=== PATIENT | female | born 1950 | race Caucasian/White ===

== ENCOUNTER → 2017-09-01 12:51 | Outpatient (CLI) | payer MEDICARE, OTHER, SELFPAY ==
[2017-09-01 13:16] LABS: Absolute Lymphocyte Count 0.95 X10^3/ul (0.83-4.51); Basophil# 0.03 X10^3/uL; Basophil% 0.7 % (0-1); Eosinophil# 0.01 X10^3/uL; Eosinophils% 0.2 % (0-5); Hematocrit 39.4 % (37-47); Hemoglobin 13.3 g/dl (12.0-15.0); Lymphocyte # 0.95 X10^3/ul (4.0); Lymphocyte % 22.6 % (19-41); Mean Corp Hgb Conc 33.8 g/gl (32-36); Mean Corpuscular Hgb 31.5 pg (27.0-32.0); Mean Corpuscular Volume 93.4 fL (81-99); Mean Platelet Vol. 11.6 fl (6.2-12.0); Monocyte# 0.25 X10^3/uL; Monocyte% 5.9 % (0-10); Neutrophil # 2.97 X10^3/uL (2.7-7.7); Neutrophil % 70.6 % (47-70); Platelet Count 141 K/mm3 (150-450); RBC Distribution Width CV 12.7 % (11.6-14.6); RBC Distribution Width SD 42.7 fl (35.1-43.9); Red Blood Count 4.22 M/mm3 (4.2-5.4); White Blood Count 4.2 K/mm3 (4.4-11.0)
[2017-09-01 13:18] LABS: POSITIVE COUNT NO; POSITIVE DIFFERENTIAL NO; POSITIVE MORPHOLOGY NO
[2017-09-01 13:47] LABS: Vitamin D,25 Hydroxy 29.9 ng/mL (29.95-100.01)
[2017-09-01 13:51] LABS: ALB/GLOB Ratio 1.2 RATIO (0.9-2.4); AST(SGOT) 35 U/L (15-37); Alanine Aminotransfer ALT/SGPT 39 U/L (13-56); Albumin, Serum 4.2 g/dL (3.2-5.0); Alkaline Phosphatase 62 U/L (45-117); Anion Gap 5 (5-15); BUN 21 mg/dL (7-18); BUN/Creat Ratio 24.9 RATIO (10-20); Chloride 105 mmol/L (98-107); Creatinine, Serum 0.84 mg/dL (0.55-1.02); EST Glomerular Filtration Rate 72 mL/min (>60); Est Glom Filt Rate - Afr Amer 87 mL/min (>60); Globulin 3.5 g/dL (2.2-4.2); Glucose 81 mg/dL (74-106); Potassium 3.9 mmol/L (3.5-5.1); Protein, Total 7.7 g/dL (6.4-8.2); Sodium Level 138 mmol/L (136-145); Thyroid Stim Hormone (TSH) 1.16 uIU/mL (0.358-3.74)
[2017-09-02 09:20] LABS: Hep C Antibodies <0.1 s/co ratio (0.0-0.9)
== END ==
PROVIDERS: Visit Provider Family Medicine Geriatric Medicine
DX: Z00.00 Encounter for general adult medical examination without abnormal findings (principal); E55.9 Vitamin D deficiency, unspecified; I10 Essential (primary) hypertension; Z13.89 Encounter for screening for other disorder
CPT/HCPCS: 36415; 80053; 82306; 84443; 85025; 86803; 86850; 86900

== ENCOUNTER → 2017-09-07 08:25 | Outpatient (CLI) | payer MEDICARE, OTHER, SELFPAY ==
--- NOTE | 2017-09-07 08:30 | BD_ITS ---
STUDY: DUAL ENERGY X-RAY ABSORPTIOMETRY / DXA REASON FOR EXAM: Female, 67 years old. The patient is postmenopausal. Loss of height. TECHNIQUE: Bone Mineral Density (BMD) measurements of lumbar spine and bilateral hips were obtained. COMPARISON: None. FINDINGS: Lumbar Spine (L1-L4): g/cm2 (1.115) / T-score (-0.5) / Z-score (1.0) Findings are suggestive of normal bone density with a low fracture risk. Left Femur Total: g/cm2 (0.852) / T-score (-1.2) / Z-score (0.0) Left Femoral Neck: g/cm2 (0.834) / T-score (-1.5) / Z-score (0.0) Right Femur Total: g/cm2 (0.853) / T-score (-1.2) / Z-score (0.0) Right Femoral Neck: g/cm2 (0.833) / T-score (-1.5) / Z-score (0.0) BD/DXA BONE DENS W/VERT FX ASMT IMPRESSION: The patient is considered osteopenic as outlined below according to World [employer] Organization (WHO) criteria with a moderate fracture risk. Reference Information: The T-score is the number of standard deviations above or below the standard which is normal for young adults at their peak bone mineral density. The World Health Organization (WHO) interprets the T-scores as follows: Above -1 Normal bone density Between -1 and -2.5 Osteopenia Equal to / or below -2.5 Osteoporosis As a practical clinical guideline, osteopenia may be graded as follows: Mild -1 through -1.5 Moderate -1.6 through -2.0 Severe -2.1 through -2.4 The Z-score is the number of standard deviations above or below age-matched controls. A Z-score of less than -1.5 would be considered abnormal. References: 1. NIH Osteoporosis and Related Bone Diseases http://www.osteo.org 2. International Society for Clinical Densitometry http://www.iscd.org 3. National Osteoporosis Foundation http://www.nof.org Electronically Signed: Noble Fish MD at 15:26 EDT Tel [phone], Service support ,
== END ==
PROVIDERS: Family Provider Family Medicine; PCP Family Medicine; Visit Provider Family Medicine Geriatric Medicine
DX: Z78.0 Asymptomatic menopausal state (principal)
CPT/HCPCS: 77085

== ENCOUNTER → 2018-11-05 | Outpatient (CLI) | payer MEDICARE, OTHER, SELFPAY | END | disposition home or self-care (01) | LOC: PSN 16:11 | PROVIDERS: Family Provider Family Medicine Geriatric Medicine; PCP Family Medicine Geriatric Medicine; Referring Provider Family Medicine Geriatric Medicine; Visit Provider Family Medicine Geriatric Medicine | DX: R50.9 Fever, unspecified (principal) | CPT/HCPCS: 87633 ==

== ENCOUNTER → 2018-11-15 08:13 | Outpatient (CLI) | payer MEDICARE, OTHER, SELFPAY ==
--- NOTE | 2018-11-15 08:15 | BI_ITS ---
MAMMOGRAPHY - BILATERAL SCREENING REASON FOR EXAM: Female, 68 years old. Routine annual screening examination. PERTINENT HISTORY: Non-contributory. TECHNIQUE: Digital bilateral breast gerson (3D mammographic acquisition) in the CC and MLO projections. 2-D mediolateral oblique (MLO) and craniocaudad (CC) views of both breasts were obtained. CAD: Full Field Digital Mammography with Computer Added Detection was performed. COMPARISON: Comparison is made with prior study December 15, 2016 and December 15, 2015. FINDINGS: Breast Composition: The breasts are heterogeneously dense, which may obscure small masses. There are no dominant masses or suspicious calcifications. No other significant abnormalities are identified. There has been no significant change since the prior study. BI/SCREEN MAMM (CAD) W/GERSON BILAT IMPRESSION: Stable bilateral screening mammogram. Yearly follow-up mammogram recommended. (A) ASSESSMENT CATEGORY: BIRADS Category 1: Negative. A letter regarding these results will be sent to the patient by the facility within 30 days. Approximately 10% of breast cancers are not detected by mammography. A normal mammogram should not delay biopsy of a clinically suspicious abnormality. [id number] Electronically Signed: Noble Fish, at 10:37 EDT , Service support ,
== END ==
PROVIDERS: Family Provider Family Medicine Geriatric Medicine; PCP Family Medicine Geriatric Medicine; Referring Provider Family Medicine Geriatric Medicine; Visit Provider Family Medicine Geriatric Medicine
DX: Z12.31 Encounter for screening mammogram for malignant neoplasm of breast (principal)
CPT/HCPCS: 77063; 77067

== ENCOUNTER → 2019-11-21 14:10 | Outpatient (CLI) | payer MEDICARE, OTHER, SELFPAY ==
[2019-11-21 15:56] LABS: Absolute Lymphocyte Count 1.31 X10^3/uL (0.83-4.51); Absolute Neutrophil Count 3.5 X10^3/uL (2.0-7.7); Basophil# 0.02 X10^3/uL; Basophil% 0.4 % (0-1); Eosinophils% 1.9 % (0-5); Hematocrit 37.6 % (37-47); Hemoglobin 12.6 g/dL (12.0-15.0); Lymphocyte # 1.31 X10^3/ul (4.0); Lymphocyte % 24.3 % (19-41); Mean Corp Hgb Conc 33.5 g/dL (32-36); Mean Corpuscular Hgb 31.5 pg (27.0-32.0); Mean Platelet Vol. 12.3 fl (6.2-12.0); Monocyte# 0.41 X10^3/uL; Monocyte% 7.6 % (0-10); NRBC Flagged by Analyzer 0 % (0-5); Neutrophil # 3.54 X10^3/uL (2.7-7.7); Neutrophil % 65.6 % (47-70); Platelet Count 168 K/mm3 (150-450); RBC Distribution Width CV 12.5 % (11.6-14.6); RBC Distribution Width SD 43.3 fl (35.1-43.9); White Blood Count 5.4 K/mm3 (4.4-11.0)
[2019-11-21 16:23] LABS: ALB/GLOB Ratio 1.2 RATIO (0.9-2.4); AST(SGOT) 21 U/L (15-37); Alanine Aminotransfer ALT/SGPT 30 U/L (13-56); Albumin, Serum 4.1 g/dL (3.2-5.0); Alkaline Phosphatase 67 U/L (45-117); Anion Gap 3 (5-15); BUN 21 mg/dL (7-18); BUN/Creat Ratio 26.4 RATIO (10-20); Calcium,Total 9.3 mg/dL (8.5-10.1); Chloride 103 mmol/L (98-107); EST Glomerular Filtration Rate 77 mL/min (>60); Est Glom Filt Rate - Afr Amer 93 mL/min (>60); Globulin 3.3 g/dL (2.2-4.2); Glucose 103 mg/dL (74-106); Potassium 3.7 mmol/L (3.5-5.1); Protein, Total 7.4 g/dL (6.4-8.2); Sodium Level 140 mmol/L (136-145); Thyroid Stim Hormone (TSH) 1.47 uIU/mL (0.358-3.74)
== END ==
PROVIDERS: PCP Family Medicine Geriatric Medicine; Visit Provider Family Medicine Geriatric Medicine
DX: I10 Essential (primary) hypertension (principal); E55.9 Vitamin D deficiency, unspecified
CPT/HCPCS: 36415; 80053; 82306; 84443; 85025

== ENCOUNTER → 2020-04-28 15:22 | Outpatient (CLI) | payer MEDICARE, OTHER, SELFPAY ==
--- NOTE | 2020-04-28 15:24 | BI_ITS ---
MAMMOGRAPHY - BILATERAL SCREENING REASON FOR EXAM: Female, 69 years old. Routine annual screening examination. PERTINENT HISTORY: Non-contributory. TECHNIQUE: Digital bilateral breast gerson (3D mammographic acquisition) in the CC and MLO projections. 2-D mediolateral oblique (MLO) and craniocaudad (CC) views of both breasts were obtained. CAD: Full Field Digital Mammography with Computer Added Detection was performed. COMPARISON: Comparison is made with prior study dated 11/15/2018 and 12/15/2016. FINDINGS: Breast Composition: The breasts are heterogeneously dense, which may obscure small masses. There are no dominant masses or suspicious calcifications. No other significant abnormalities are identified. There has been no significant change since the prior study. BI/SCRN MAMM (CAD)W/GERSON BILAT IMPRESSION: Stable bilateral screening mammogram. Yearly follow-up mammogram recommended. (A) ASSESSMENT CATEGORY: BIRADS Category 1: Negative. A letter regarding these results will be sent to the patient by the facility within 30 days. Approximately 10% of breast cancers are not detected by mammography. A normal mammogram should not delay biopsy of a clinically suspicious abnormality. [id number] Electronically Signed: Noble Fish MD at 7:59 EST , Service support ,
== END ==
PROVIDERS: PCP Family Medicine Geriatric Medicine; Referring Provider Family Medicine Geriatric Medicine; Visit Provider Family Medicine Geriatric Medicine
DX: Z12.31 Encounter for screening mammogram for malignant neoplasm of breast (principal)
CPT/HCPCS: 77063; 77067

== ENCOUNTER → 2020-12-10 13:25 | Outpatient (CLI) | payer MEDICARE, OTHER, SELFPAY ==
[2020-12-10 16:07] LABS: Absolute Lymphocyte Count 1.39 X10^3/uL (0.83-4.51); Absolute Neutrophil Count 3.4 X10^3/uL (2.0-7.7); Basophil# 0.04 X10^3/uL; Basophil% 0.8 % (0-1); Eosinophil# 0.07 X10^3/uL; Eosinophils% 1.3 % (0-5); Hematocrit 37.4 % (37-47); Hemoglobin 12.4 g/dL (12.0-15.0); Lymphocyte # 1.39 X10^3/ul (0.83-4.51); Lymphocyte % 26.1 % (19-41); Mean Corp Hgb Conc 33.2 g/dL (32-36); Mean Corpuscular Hgb 31.3 pg (27.0-32.0); Mean Corpuscular Volume 94.4 fL (81-99); Mean Platelet Vol. 12.2 fl (6.2-12.0); Monocyte# 0.43 X10^3/uL; Monocyte% 8.1 % (0-10); NRBC Flagged by Analyzer 0 % (0-5); Neutrophil # 3.37 X10^3/uL (2.7-7.7); Neutrophil % 63.3 % (47-70); Platelet Count 154 K/mm3 (150-450); RBC Distribution Width CV 12.3 % (11.6-14.6); RBC Distribution Width SD 43.2 fl (35.1-43.9); Red Blood Count 3.96 M/mm3 (4.2-5.4); White Blood Count 5.3 K/mm3 (4.4-11.0)
[2020-12-10 16:33] LABS: Vitamin D,25 Hydroxy 57.1 ng/mL
[2020-12-10 16:41] LABS: ALB/GLOB Ratio 1.1 RATIO (0.9-2.4); AST(SGOT) 24 U/L (15-37); Alanine Aminotransfer ALT/SGPT 32 U/L (13-56); Albumin, Serum 3.9 g/dL (3.2-5.0); Alkaline Phosphatase 62 U/L (45-117); Anion Gap 8 (5-15); BUN 12 mg/dL (7-18); BUN/Creat Ratio 18.8 RATIO (10-20); Calcium,Total 9.2 mg/dL (8.5-10.1); Chloride 103 mmol/L (98-107); Creatinine, Serum 0.64 mg/dL (0.55-1.02); EST Glomerular Filtration Rate 98 mL/min (>60); Est Glom Filt Rate - Afr Amer 119 mL/min (>60); Globulin 3.4 g/dL (2.2-4.2); Glucose 90 mg/dL (74-106); Potassium 3.7 mmol/L (3.5-5.1); Protein, Total 7.3 g/dL (6.4-8.2); Sodium Level 140 mmol/L (136-145); Thyroid Stim Hormone (TSH) 1.57 uIU/mL (0.358-3.74)
== END ==
PROVIDERS: PCP Family Medicine Geriatric Medicine; Visit Provider Family Medicine Geriatric Medicine
DX: I10 Essential (primary) hypertension (principal); E55.9 Vitamin D deficiency, unspecified
CPT/HCPCS: 36415; 80053; 82306; 84443; 85025

== ENCOUNTER → 2021-02-17 11:15 | Outpatient (CLI) | payer MEDICARE, OTHER, SELFPAY | PROVIDERS: PCP Family Medicine Geriatric Medicine; Visit Provider Physician Assistant | DX: Z11.52 Encounter for screening for COVID-19 (principal) | CPT/HCPCS: 87635; U0005; U0003 ==

== ENCOUNTER → 2021-02-22 | Outpatient (CLI) | payer MEDICARE, OTHER, SELFPAY | END | disposition home or self-care (01) | LOC: LABSPEC 09:41 | PROVIDERS: PCP Family Medicine Geriatric Medicine; Visit Provider Physician Assistant | DX: Z11.52 Encounter for screening for COVID-19 (principal) | CPT/HCPCS: 87635; U0005; U0003 ==

== ENCOUNTER → 2021-03-03 | Outpatient (CLI) | payer MEDICARE, OTHER, SELFPAY | END | disposition home or self-care (01) | LOC: LABSPEC 09:47 | PROVIDERS: PCP Family Medicine Geriatric Medicine; Referring Provider Physician Assistant; Visit Provider Physician Assistant | DX: Z11.52 Encounter for screening for COVID-19 (principal) | CPT/HCPCS: 87635; U0005; U0003 ==

== ENCOUNTER 2021-04-29 08:45 | Outpatient (CLI) | payer MEDICARE, OTHER, SELFPAY ==
--- NOTE | 2021-04-29 08:49 | BI_ITS ---
MAMMOGRAPHY - BILATERAL SCREENING REASON FOR EXAM: Female, 70 years old. Routine annual screening examination. PERTINENT HISTORY: Non-contributory. TECHNIQUE: Digital bilateral breast gerson (3D mammographic acquisition) in the CC and MLO projections. 2-D mediolateral oblique (MLO) and craniocaudad (CC) views of both breasts were obtained. CAD: Full Field Digital Mammography with Computer Added Detection was performed. COMPARISON: Comparison is made with prior study dated 04/28/2020 and 11/15/2018. FINDINGS: Breast Composition: The breasts are heterogeneously dense, which may obscure small masses. There are no dominant masses or suspicious calcifications. No other significant abnormalities are identified. There has been no significant change since the prior study. BI/SCRN MAMM (CAD)W/GERSON BILAT IMPRESSION: Stable bilateral screening mammogram. Yearly follow-up mammogram recommended. (A) ASSESSMENT CATEGORY: BIRADS Category 1: Negative. A letter regarding these results will be sent to the patient by the facility within 30 days. Approximately 10% of breast cancers are not detected by mammography. A normal mammogram should not delay biopsy of a clinically suspicious abnormality. [id number] Electronically Signed: Noble Fish MD at 9:55 EST ,
== END 2021-04-29 23:59 | disposition home or self-care (01) ==
LOC: OPBI 08:47
PROVIDERS: PCP Family Medicine Geriatric Medicine; Referring Provider Family Medicine Geriatric Medicine; Visit Provider Family Medicine Geriatric Medicine
DX: Z12.31 Encounter for screening mammogram for malignant neoplasm of breast (principal)
CPT/HCPCS: 77063; 77067

== ENCOUNTER 2021-06-21 09:32 | Outpatient (CLI) | payer MEDICARE, OTHER, SELFPAY ==
[2021-06-21 12:47] LABS: Anion Gap 5 (5-15); BUN 19 mg/dL (7-18); BUN/Creat Ratio 27.7 RATIO (10-20); Calcium,Total 10.1 mg/dL (8.5-10.1); Chloride 102 mmol/L (98-107); Creatinine, Serum 0.69 mg/dL (0.55-1.02); EST Glomerular Filtration Rate 90 mL/min (>60); Est Glom Filt Rate - Afr Amer 109 mL/min (>60); Glucose 105 mg/dL (74-106); Potassium 4.1 mmol/L (3.5-5.1); Sodium Level 137 mmol/L (136-145)
== END 2021-06-21 23:59 | disposition home or self-care (01) ==
LOC: POLAB3 09:34
PROVIDERS: PCP Family Medicine Geriatric Medicine; Visit Provider Family Medicine Geriatric Medicine
DX: I10 Essential (primary) hypertension (principal)
CPT/HCPCS: 36415; 80048

== ENCOUNTER → 2021-10-05 | Outpatient (CLI) | payer MEDICARE, OTHER, SELFPAY ==
--- NOTE | 2021-10-05 09:38 | STE_ITS ---
Reason For Study: Arrhythmia Stress Results Protocol: Justin Protocol Maximum Predicted HR: 151 bpm Target HR: 128 bpm % Maximum Predicted HR: 97 % DurationHeart Rate Stage (mm:ss) (bpm) BP Comment Baseline 75 150/98No Chest Pain Justin Protocol Stage I 3:00 102 172/94No Chest Pain Justin Protocol Stage II 3:00 112 190/92No Chest Pain Justin Protocol Stage III 3:00 125 194/94No Chest Pain Justin Protocol Stage IV 3:00 146 204/90No Chest Pain Recovery 97 146/88No Chest Pain Stress Duration: 12:00 mm:ss Maximum Stress HR: 146 bpm METS: 13 Baseline Echocardiogram Findings Stress Echo Wall motion Data Resting WM Intermediate WM Stress WM ECHO/Stress Test Echo w/o Contrast Interpretation Summary Exercise stress echocardiogram. 71-year-old lady with a history of chest pain. Stress EKG. The resting EKG demonstrates normal sinus rhythm with a rate of 74 bpm normal i ntervals are noted resting blood pressure is 150/98 mmHg. The patient exercised according to the r egular Justin protocol for total duration of 12 minutes. The maximum heart rate attained was 148 bpm w hich is 98% of max impacted heart rate the maximum workload was 13.4 metabolic equivalents. At res t there were no ST or T wave changes noted suggest ischemia and at peak exercise upsloping ST changes were noted with did not meet the criteria for ischemia. The peak blood pressure was 204/90 mmHg whi ch was mildly hypertensive response to exercise. The test was terminated due to the target he art rate being achieved. No chest pain was noted. Stress echocardiogram. The resting echocardiographic images demonstrated preserved ejection fraction. At peak exercise there was thickening of all vega and improvement in left ventricular ejection fraction from 55 to 65%. Mild resting mitral regurgitation is present. Conclusion: Normal exercise stress echo with no evidence of ischemia. Good functional capacity. Ordering Physician: Grey Mendieta Referring Physician: Grey Mendieta Performed By: Lex Moss RCS
== END | disposition home or self-care (01) ==
LOC: CVS 09:36
PROVIDERS: PCP Family Medicine Geriatric Medicine; Visit Provider Internal Medicine Cardiovascular Disease
DX: I10 Essential (primary) hypertension (principal); R07.9 Chest pain, unspecified
CPT/HCPCS: 93017; 93350

== ENCOUNTER → 2022-05-20 | Outpatient (CLI) | payer MEDICARE, OTHER, SELFPAY ==
[2022-05-20 12:24] LABS: Absolute Lymphocyte Count 1.13 X10^3/uL (0.83-4.51); Absolute Neutrophil Count 4.2 X10^3/uL (2.0-7.7); Basophil# 0.03 X10^3/uL; Basophil% 0.5 % (0-1); Eosinophil# 0.14 X10^3/uL; Eosinophils% 2.3 % (0-5); Hematocrit 38.6 % (37-47); Hemoglobin 12.7 g/dL (12.0-15.0); Lymphocyte # 1.13 X10^3/ul (0.83-4.51); Lymphocyte % 18.9 % (19-41); Mean Corp Hgb Conc 32.9 g/dL (32-36); Mean Corpuscular Hgb 31.1 pg (27.0-32.0); Mean Corpuscular Volume 94.4 fL (81-99); Mean Platelet Vol. 12.2 fl (6.2-12.0); Monocyte% 8.4 % (0-10); NRBC Flagged by Analyzer 0 % (0-5); Neutrophil # 4.15 X10^3/uL (2.7-7.7); Neutrophil % 69.6 % (47-70); Platelet Count 154 K/mm3 (150-450); RBC Distribution Width CV 12.9 % (11.6-14.6); RBC Distribution Width SD 44.7 fl (35.1-43.9); Red Blood Count 4.09 M/mm3 (4.2-5.4)
[2022-05-20 12:55] LABS: Vitamin D,25 Hydroxy 43.2 ng/mL
[2022-05-20 13:00] LABS: ALB/GLOB Ratio 1.2 RATIO (0.9-2.4); AST(SGOT) 23 U/L (15-37); Alanine Aminotransfer ALT/SGPT 27 U/L (13-56); Albumin, Serum 4.2 g/dL (3.2-5.0); Alkaline Phosphatase 63 U/L (45-117); Anion Gap 6 (5-15); BUN 14 mg/dL (7-18); Calcium,Total 9.8 mg/dL (8.5-10.1); Chloride 103 mmol/L (98-107); Cholesterol 200 mg/dL (200); Creatinine, Serum 0.61 mg/dL (0.55-1.02); EST Glomerular Filtration Rate 103 mL/min (>60); Est Glom Filt Rate - Afr Amer 125 mL/min (>60); Globulin 3.4 g/dL (2.2-4.2); Glucose 101 mg/dL (74-106); High Density Lipoprotein 77 mg/dL; Protein, Total 7.6 g/dL (6.4-8.2); Sodium Level 140 mmol/L (136-145); Triglycerides 58 mg/dL; Very Low Density Lipoprotein 12 mg/dL (5-40)
== END | disposition home or self-care (01) ==
LOC: BIMLAB 10:05
PROVIDERS: PCP Internal Medicine; Referring Provider Internal Medicine; Visit Provider Internal Medicine
DX: I10 Essential (primary) hypertension (principal); M85.80 Other specified disorders of bone density and structure, unspecified site
CPT/HCPCS: 36415; 80053; 80061; 82306; 85025

== ENCOUNTER → 2022-05-31 | Outpatient (CLI) | payer MEDICARE, OTHER, SELFPAY ==
--- NOTE | 2022-05-31 14:14 | BI_ITS ---
MAMMOGRAPHY - BILATERAL SCREENING REASON FOR EXAM: Female, 72 years old. Routine annual screening examination. PERTINENT HISTORY: Non-contributory. TECHNIQUE: Digital bilateral breast gerson (3D mammographic acquisition) in the CC and MLO projections. 2-D mediolateral oblique (MLO) and craniocaudad (CC) views of both breasts were obtained. CAD: Full Field Digital Mammography with Computer Added Detection was performed. COMPARISON: Comparison is made with prior study dated December 27, 2021 and January 26, 2021. FINDINGS: Breast Composition: The breasts are heterogeneously dense, which may obscure small masses. There are no dominant masses or suspicious calcifications. Stable benign-appearing bilateral axillary lymph nodes. No other significant abnormalities are identified. There has been no significant change since the prior study. BI/SCRN MAMM (CAD)W/GERSON BILAT IMPRESSION: Stable bilateral screening mammogram. Yearly follow-up mammogram recommended. (A) ASSESSMENT CATEGORY: BIRADS Category 2: Benign. A letter regarding these results will be sent to the patient by the facility within 30 days. Approximately 10% of breast cancers are not detected by mammography. A normal mammogram should not delay biopsy of a clinically suspicious abnormality. [id number] Electronically Signed: Noble Fish MD at 15:32 EDT ,
--- NOTE | 2022-05-31 14:32 | BD_ITS ---
STUDY: DUAL ENERGY X-RAY ABSORPTIOMETRY / DXA REASON FOR EXAM: Female, 72 years old. Post menopausal TECHNIQUE: Bone Mineral Density (BMD) measurements of lumbar spine and bilateral hips were obtained. COMPARISON: Comparison is made with prior study dated September 07, 2017. FINDINGS: Lumbar Spine (L1-L4): g/cm2 (0.993) / T-score (-0.5) / Z-score (1.6) Findings are suggestive of normal bone density with a low fracture risk. Left Femur Total: g/cm2 (0.786) / T-score (-1.3) / Z-score (0.2) Left Femoral Neck: g/cm2 (0.671) / T-score (-1.6) / Z-score (0.2) Right Femur Total: g/cm2 (0.792) / T-score (-1.2) / Z-score (0.3) Right Femoral Neck: g/cm2 (0.677) / T-score (-1.6) / Z-score (0.2) The T-Scores on the most recent prior examination were: Lumbar Spine (L1-L4): There has been improvement of bone density since the previous examination. Left Femur Total: which represents a worsening of 0.6%. Right Femur Total: which represents an improvement of 0.1%. BD/Dexa Bone Density Study IMPRESSION: The patient is considered osteopenic as outlined below according to World [employer] Organization (WHO) criteria with a moderate fracture risk. There has been improvement of bone density since the previous examination. Reference Information: The T-score is the number of standard deviations above or below the standard which is normal for young adults at their peak bone mineral density. The World Health Organization (WHO) interprets the T-scores as follows: Above -1 Normal bone density Between -1 and -2.5 Osteopenia Equal to / or below -2.5 Osteoporosis As a practical clinical guideline, osteopenia may be graded as follows: Mild -1 through -1.5 Moderate -1.6 through -2.0 Severe -2.1 through -2.4 The Z-score is the number of standard deviations above or below age-matched controls. A Z-score of less than -1.5 would be considered abnormal. References: 1. NIH Osteoporosis and Related Bone Diseases www osteo.org 2. International Society for Clinical Densitometry www iscd.org 3. National Osteoporosis Foundation www nof.org Electronically Signed: Noble Fish MD at 13:03 EDT ,
== END | disposition home or self-care (01) ==
LOC: OPBI 14:12
PROVIDERS: PCP Internal Medicine; Referring Provider Internal Medicine; Visit Provider Internal Medicine
DX: Z78.0 Asymptomatic menopausal state (principal); Z12.31 Encounter for screening mammogram for malignant neoplasm of breast
CPT/HCPCS: 77063; 77067; 77080

== ENCOUNTER → 2022-11-21 | Outpatient (CLI) | payer MEDICARE, OTHER, SELFPAY ==
[2022-11-21 13:14] LABS: Anion Gap 7 (5-15); BUN 16 mg/dL (7-18); BUN/Creat Ratio 21.8 RATIO (10-20); Calcium,Total 10.1 mg/dL (8.5-10.1); Chloride 101 mmol/L (98-107); Creatinine, Serum 0.73 mg/dL (0.55-1.02); EST Glomerular Filtration Rate 83 mL/min (>60); Est Glom Filt Rate - Afr Amer 101 mL/min (>60); Glucose 107 mg/dL (74-106); Potassium 4.2 mmol/L (3.5-5.1); Sodium Level 139 mmol/L (136-145)
== END | disposition home or self-care (01) ==
LOC: BIMLAB 09:56
PROVIDERS: PCP Internal Medicine; Referring Provider Internal Medicine; Visit Provider Internal Medicine
DX: I10 Essential (primary) hypertension (principal)
CPT/HCPCS: 36415; 80048

== ENCOUNTER → 2023-02-17 | Outpatient (CLI) | payer MEDICARE, OTHER, SELFPAY ==
[2023-02-21 10:09] LABS: HPV APTIMA, High Risk Negative (Negative)
== END | disposition home or self-care (01) ==
LOC: LAB 09:42 → LABSPEC 09:46
PROVIDERS: Referring Provider Obstetrics & Gynecology; Visit Provider Obstetrics & Gynecology
DX: Z12.4 Encounter for screening for malignant neoplasm of cervix (principal)
CPT/HCPCS: 87624; 88175; G0145

== ENCOUNTER → 2023-02-24 | Outpatient (CLI) | payer MEDICARE, OTHER, SELFPAY ==
[2023-02-24 16:54] LABS: Anion Gap 2 (5-15); BUN 21 mg/dL (7-18); BUN/Creat Ratio 24.4 RATIO (10-20); Calcium,Total 9.6 mg/dL (8.5-10.1); Chloride 101 mmol/L (98-107); Creatinine, Serum 0.86 mg/dL (0.55-1.02); EST Glomerular Filtration Rate 69 mL/min (>60); Est Glom Filt Rate - Afr Amer 84 mL/min (>60); Glucose 86 mg/dL (74-106); Potassium 3.9 mmol/L (3.5-5.1); Sodium Level 139 mmol/L (136-145)
== END | disposition home or self-care (01) ==
LOC: BIMLAB 15:08
PROVIDERS: PCP Internal Medicine; Referring Provider Internal Medicine; Visit Provider Internal Medicine
DX: I10 Essential (primary) hypertension (principal)
CPT/HCPCS: 36415; 80048

== ENCOUNTER 2023-05-28 15:16 | Emergency (ER) | payer MEDICARE, OTHER, SELFPAY ==
[2023-05-28 15:18] VITALS: BP 173/78; PULSE 72; RESP 16; TEMP 36.8; O2SAT 100; BMI 24.0
--- NOTE | 2023-05-28 15:45 | RAD_ITS ---
EXAM: XR RIGHT FINGERS, 2 OR MORE VIEWS CLINICAL INDICATION: infection TECHNIQUE: Frontal, lateral and oblique views of the fingers of the right hand. COMPARISON: No relevant prior studies available. FINDINGS: BONES/JOINTS: Unremarkable. No acute fracture. No subluxation. Normal alignment. Preservation of the joint space. No sclerotic or destructive changes observed. SOFT TISSUES: Unremarkable. No soft tissue swelling or gas. No radiopaque foreign body. RAD/Finger(s) Min 2 Views IMPRESSION: Negative x-rays of the visualized right fingers. Electronically Signed: Dionisio Mora MD at 16:12 EDT ,
--- NOTE | 2023-05-28 15:57 | EX.ED.UPPERE ---
HPI History of Present Illness Chief Complaint: Upper Extremity Injury Informant: patient and spouse/S.O. Narrative Narrative: 73-year-old female states about 10 to 11 days ago she sustained a laceration to the volar aspect of the right index finger at the level of the PIP joint. She states it did not seem very deep and only required Band-Aid for about a day. Seen feeling healing up fine until today when she woke and she felt that it was swollen and tender and had pain when she fully tried to flex the finger. She has not had any problems going into extension. Now she notes some erythema and some whitish skin where the cut was at. She notes her shots are up-to-date. No immunosuppression. She is left-handed. Tetanus Immunization: <5 years PFSH [facility] Medical History Anxiety Glaucoma History of asthma Hx of essential hypertension Hx of glaucoma Hx of migraines Hx of seasonal allergies Insomnia Osteopenia Ptosis of both eyelids Wears glasses Home Medications ascorbic acid (vitamin C) 500 mg capsule mg PO 07/23/21 [History Last Taken Unknown] calcium citrate 250 mg PO BID 07/23/21 [History Last Taken Unknown] mecobalamin (vitamin B12) 5,000 mcg disintegrating tablet mcg PO 07/23/21 [History Last Taken Unknown] multivitamin (Multiple Vitamins tablet) 1 tab PO DAILY 07/23/21 [History Last Taken Unknown] Bacillus coagulans 800 million cell tablet (Digestive Advantage Probiotics-Prebiotic) cell PO 04/06/22 [History Last Taken Unknown] timolol 0.25 % eye drops 1 drp ophthalmic (eye) DAILY 05/20/22 [History Last Taken Unknown] diphenhydramine HCl 25 mg capsule (Allergy (diphenhydramine)) 25 mg PO QHS 11/21/22 [History Last Taken Unknown] valsartan 320 mg-hydrochlorothiazide 25 mg tablet 1 tab PO DAILY #90 tabs 01/17/23 [Rx Last Taken Unknown] propranolol 80 mg capsule,24 hr,extended release 80 mg PO QHS #90 caps 03/02/23 [Rx Last Taken Unknown] cephalexin 500 mg capsule 500 mg PO Q6 #28 CAPSULES 05/28/23 [Rx Last Taken Unknown] Allergy/AdvReac Type Severity Reaction Status Date / Time No Known Allergies Allergy Verified 05/28/23 15:17 Family History Father CAD (coronary artery disease) CABG Myocardial infarction Mother Pancreatic cancer Surgical History No significant past surgical history Social History Smoking Status: Never smoker alcohol intake: current alcohol intake frequency: holidays/special occasions only substance use type: does not use caffeine: Yes what type of physical activity do you participate in: walking and weight training frequency: 3-4 times per week seatbelt use: always do you feel safe at home: Yes additional social history: -Ty ROS ROS ED Constitutional Constitutional ED: Denies chills, fever(s) or weight loss Eyes Eyes: Denies change in vision or diplopia ENT ENT ED: Denies ear pain, rhinorrhea or sore throat Cardiovascular Cardiovascular: Denies chest pain, orthopnea, palpitations or racing heartbeat Respiratory/Chest Respiratory/Chest: Denies cough, dyspnea or orthopnea Gastrointestinal Gastrointestinal: Denies abdominal pain, diarrhea, nausea or vomiting Genitourinary Genitourinary ED: Denies dysuria, hematuria or urinary frequency Musculoskeletal Musculoskeletal: Reports other Details: See history of present illness ; Denies arthralgias or myalgias Integumentary Reports other Details: See history of present illness ; Denies abscess or rash Neurologic Neurologic: Denies headache(s) or weakness Psychiatric Psychiatric: Denies anxiety, depression, suicidal ideation or suicidal thoughts Endocrine Endocrinology: Denies polydipsia, polyphagia or polyuria Allergic/Immunologic Allergic/Immunologic ED: Denies mouth swelling, tongue swelling or urticaria EXAM Physical Exam Const Vital Signs: 05/28/23 15:18 Temperature 98.3 F Temperature Source Temporal Pulse Rate 72 Respiratory Rate 16 Blood Pressure 173/78 H Blood Pressure Mean 109 Pulse Ox 100 Oxygen Delivery Method Room Air Positive well nourished and well developed General Appearance ED: well developed HEENT Reports normocephalic, head/scalp atraumatic and moist mucous membranes Eyes PERRL and EOMs intact bilaterally Neck no lymphadenopathy, supple and no JVD Resp normal respiratory effort and clear to auscultation bilaterally Cardio regular rate, regular rhythm and no murmurs GI normal to inspection, nondistended, normoactive bowel sounds and non-tender Palpation: soft Back/Spine no CVA tenderness and normal ROM Extremity Extremity Narrative: There is some focal swelling and erythema on the volar aspect of the right index finger. It does not extend past the MCP joint. It is not circumferential. She is able to go into full extension on her own. There is some pain when she goes into full flexion possibly due to the swelling. Right in the joint line crease there is some whitish skin consistent with a healing wound. I do not palpate any infection crepitance or fluctuance. General Extremety ED: Negative for edema General Extremity: Negative for edema Neuro oriented x3 and CN's II-XII intact bilaterally Sensorium / Orientation: alert Motor Exam: strength 5/5 throughout Psych mental status grossly normal Mood & Affect: Negative for depressed or tearful Skin no rashes or lesions noted and no wounds MDM MDM MDM Narrative Medical decision making narrative: My independent or potation of the plain films of the right index finger is no acute fracture. No subcutaneous air or obvious form radiopaque body. Patient will be started on Keflex. Would recommend some warm compresses. Return if worsening or follow-up if not improving. History & Record Review Discussion w/independent historian: Patient and Significant other Discharge Plan Triage Chief Complaint: Upper Extremity Injury ED Provider: Brando Myers Dx/Rx/DC Orders Clinical Impression: Cellulitis of finger of right hand Instructions: ED Cellulitis Prescriptions: New cephalexin [cephalexin] 500 mg capsule 500 mg PO Q6 Qty: 28 0RF No Action multivitamin [Multiple Vitamins] Tablet 1 tab PO DAILY calcium citrate 250 mg calcium tablet 250 mg PO BID mecobalamin (vitamin B12) 5,000 mcg tablet,disintegrating PO ascorbic acid (vitamin C) 500 mg capsule PO Digestive Advantage Probio-Pre 800 million cell tablet PO diphenhydramine HCl [Allergy (diphenhydramine)] 25 mg capsule 25 mg PO QHS timolol 0.25 % drops 1 drp ophthalmic (eye) DAILY valsartan-hydrochlorothiazide 320-25 mg tablet 1 tab PO DAILY Qty: 90 2RF propranolol 80 mg capsule,extended release 24 hr 80 mg PO QHS Qty: 90 1RF Primary Care Provider: Esme Gomez Referrals: Esme Gomez MD [Primary Care Provider] - 3-5 Days Disposition Disposition: Home, Self Care
--- OUTSIDE RECORDS SUMMARY | 2023-05-28 15:57 | XMS RPT_ITS | CCD ---
Author Name Unknown Address [address] [place] [address] Organization [facility] Care Team Providers Care Hospice Director Name Role Phone KATHERYN, JENN Farnsworth Attending Unavailable KATHERYN, JENN Farnsworth Primary Care Unavailable KATHERYN, JENN Farnsworth Admitting Unavailable KATHERYN, JENN Farnsworth Attending Unavailable KATHERYN, JENN Farnsworth Primary Care Unavailable KATHERYN, JENN Farnsworth Admitting Unavailable Unavailable Primary Care Provider Unavailabl e Unavailable Primary Care Provider Unavailabl e Unavailable Primary Care Provider UnavailJALEESA Wilkins Attending UnavailJALEESA Wilkins Referring Unavailabl LORNA Patel Attending Unavailable LORNA SINGLETARY Referring Unavailable LORNA SINGLETARY Attending Unavailable LORNA SINGLETARY Referring Unavailable JALEESA SONI Attending UnavailFABIOLA Caruso Attending Unavailable Allergies Allergy Classification Reported Allergen(s) Allergy Type Date of Onset Reaction(s) Facility (10 sources) Tetracycline; Translations: [TETRACYCLINE] Drug Allergy 11-19-2019 Unknown [facility] Medications Current Medications Medication Drug Class(es) Dates Sig (Normalized) Sig (Original) benoxinate hydrochloride 4 mg/ml / fluorescein sodium 2.5 mg/ml ophthalmic solution (5 sources) Diagnostic Dye Start: 12-21-2022 End: 12-22-2022 fluorescein-benoxi shanta 0.25-0.4 % 1 Drop (FLURESS) Completed/Discontinued Medications Medication Drug Class(es) Dates Sig (Normalized) Sig (Original) ascorbic acid 500 mg oral capsule (3 sources) Vitamin C Start: 07-23-2021 take 1 tablet by mouth once daily ascorbic acid, vitamin C, 500 mg cap Take 1 tablet by mouth once daily. 0 07/23/2021 Active Problems Active Problems Problem Classification Problem Date Documented Date Episodic/Chronic Blindness and vision defects (1 source) Presbyopia; Translations: [Presbyopia] Episodic Cataract (10 sources) Bilateral cortical age-related cataract eyes; Translations: [Cortical age-related cataract, bilateral] Onset: 0 04-23-2019 Chronic Essential hypertension (9 sources) Benign essential hypertension; Translations: [Essential (primary) hypertension] Onset: 2 05-14-2021 Chronic Glaucoma (20 sources) Ocular hypertension, bilateral; Translations: [Ocular hypertension] Onset: 0 04-23-2019 Chronic Other aftercare (1 source) Surgical follow-up; Translations: [Encounter for follow-up examination after completed treatment for conditions other than malignant neoplasm] Episodic Other eye disorders (12 sources) Degenerative myopia with choroidal neovascularization, left eye; Translations: [Progressive high (degenerative) myopia] Onset: 0 03-19-2019 Chronic Other eye disorders (11 sources) Degenerative disorder of eye; Translations: [Degenerative myopia with foveoschisis, bilateral eye] Onset: 0 03-19-2019 Chronic Other eye disorders (1 source) Optic disc hemorrhage; Translations: [Other disorders of optic disc, right eye] Chronic Other eye disorders (1 source) Degenerative myopia with foveoschisis, bilateral eye; Translations: [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] Onset: 0 Chronic Retinal detachments; defects; vascular occlusion; and retinopathy (20 sources) Neovascularization of choroid of left eye; Translations: [Retinal neovascularization, unspecified, left eye] Onset: 0 03-19-2019 Chronic Past or Other Problems Problem Classification Problem Date Documented Da te Episodic/Chronic Other eye disorders (9 sources) Bilateral myogenic ptosis of eyes; Translations: [Myogenic ptosis of bilateral eyelids] Onset: 05-14-2021 05-14-2021 Episodic Results Test Name Value Interpretation Reference Range Facil ity Encounters Encounter Date Encounter Type Care Provider Facility Start: 01-23-2023 End: 01-23-2023 ambulatory FABIOLA ASHLEY Facility:[facility] Start: 12-21-2022 End: 12-21-2022 ambulatory JALEESA SONI Facility:[facility] Start: 12-21-2022 End: 12-21-2022 Patient encounter procedure Jaleesa Soni MD Work Phone: Ophthalmology Procedures Date Procedure Procedure Detail Performing Clinician Start: 07-19-2022 Computerized ophthal yobani imaging retina Fabiola Ashley PA-C Work Phone: Start: 06-14-2022 Visual field xm uni/ bi w/interp extended exam Jaleesa Soni MD Work Phone: Start: 12-27-2021 End: 12-27-2021 Computerized ophthalmic imaging retina Fabiola Ashley PA-C Work Phone: Plan of Treatment Date Care Activity Detail Author Start: 01-05-2024 End: 06-13-2024 VISUAL FIELD 24-2 OU (BOTH EYES) VISUAL FIELD 24-2 OU (BOTH EYES) OPHT Imaging Routine Primary open angle glaucoma (POAG) of right eye, 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 Expected: 01/05/2024, Expires: 06/13/2024 [facility] Work Phone: Payers Date Payer Category Payer Medicare MEDICARE MEDICAR E A AND B [id number] 2017-Present [phone] [place] [address] Medicare [id number] 2017 Medicare MEDICARE MEDICAR E A AND B [id number] 2017-Present [phone] [place] [address] Medicare [id number] 2017 Medicare [id number] 2017 Unknown PHYSICIANS [employer] SUPPLEMENT [id number] 2017-Present [phone] [address] [place] [id number] Indemnity [id number] 2017 Unknown PHYSICIANS [employer] M[employer] SUPPLEMENT [id number] 2017-Present [phone] [address] [place] [address] Indjcnity [id number] 2017 Unknown [id number] Social History Date Type Detail Facility Start: 03-19-2019 End: 12-21-2022 Tobacco smoking status NHIS Never smoked tobacco [facility] Start: 03-19-2019 End: 12-21-2022 Tobacco use and exposure Smokeless tobacco non-user [facility] Start: 06-15-2021 End: 12-21-2022 Alcohol intake Current drinker of alcohol (finding) [facility] Start: 06-15-2021 End: 12-21-2022 Alcohol intake [facility] Start: 1950 Sex Assigned At Female [facility] Start: 06-05-2021 End: 06-15-2021 Exposure to SARS-CoV-2 (event) Not sure [facility] Start: 12-21-2022 Tobacco use panel [facility] National Score (1-10 0), lower number is lower risk 70 [facility] Start: 11-12-2019 Gender identity Identifies as female gender (finding) [facility] Start: 11-12-2019 Sexual orientation Heterosexual (fin ding) [facility] Clinical Notes 03-19-2019 to 01-23-2023 Jaleesa Snoi MD - 12/21/2022 12:45 PM EDTLorna Singletary MD - 07/19/2022 12:57 PM EDTJaleesa Soni MD - 06/14/2022 2:18 PM EDT Note Date & Type Note Facility 01-23-2023 Note HNO ID: [id number] Author: Fabiola Ashley PA-C Service: ? Author Type: Physician Operator [employer] Type: Progress Notes Filed: 01/23/2023 1:20 PM Note Text: All problems with bold in text below addressed at this visit with patient 1. 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 Singletary in 6 months 2. Cataracts, Both eyes - Observe 3. Early POAG OD, OTHN OS - 2/2 OHTN today and +Fam history with Mother (managed on gtts only) - Diagnosed when new disc heme noted on exam OD 06/2022 - Current drops: timolol qAM OU, latanoprost qAM OU - IOP 16/17 - Follows with Dr. Soni 4. Lattice degeneration OU (both eyes) - RWS reviewed - Stable on exam, continue to monitor 5. 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 Mason - Stable, observe I have seen and examined this patient. I have confirmed and edited as necessary the relevant ophthalmic history, medications, ROS, and the neuro and ophthalmic exam findings as obtained by others and myself. I have discussed the case and the management of this patient's care with the attending Physician, if applicable. I also have reviewed and agree with the assessment and plan as stated above and agree with all of its relevant components. I have discussed the treatment alternatives with the patient and the patient's family, if applicable. Follow-up as noted below, or sooner if new symptoms develop. [facility] 12-21-2022 Note HNO ID: [id number] Author: Jaleesa Soni MD Service: ? Author Type: Physician Type: Progress Notes Filed: 12/21/2022 1:23 PM Note Text: Tmax: 25, 28; Pachy: 513, 518 Lasers and Surgeries: OD: - OS: - Ocular Medication Intol and Non-efficacy: - Referred by [facility] Now on Timolol OU qam (04/2019 for IOP 20, 29) Latanoprost qam OU (06/2022 19,23 +DH OD) OHTN OS POAG mild OD => new dx 06/2022 based on DH -HVF 06/2022 (in contacts, lids taped) OD MD -3.59, few scattered defects, much better than typical OS MD -5.35, shallow sup paracentral, overall stable -OCT: too myopic OU -Baseline photos 04/2019 -04/2019: I don't think there's glaucomatous optic neuropathy but OHTN, high myopia, FamHx (mom) and thin CCT put her at substantial risk of glaucoma -+DH OD 06/2022 @ 19mmHg => suggestive of early POAG -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 -ideal IOP 16 or less -added latanoprost qd OU 06/2022 and IOP has remained well controlled 6 months refract OU, BAT OD, HVF, dilate Cortical cataract OU -vision is ok but will follow Extreme myopia, myopic degeneration, lattice OU -sees [facility]/Joshua -OCT macula 03/2019 (per [facility]) schisis OU, foveal atrophy OS -H/O CNVM OS post Avastin and Eylea, now quiescent since 2014 -central atrophy OS apparent on VF OS Ptosis OU -affects VS Scribe Attestation: By signing my name below, I, Lorenzo Hagen, attest that this documentation has been prepared under the direction and in the presence of Jaleesa Soni MD. Electronically Signed:cynthia Vaughn, December 21, 2022 12:45 PM I, Jaleesa Soni MD, personally performed the services described in this documentation. All medical record entries made by the gracieibe were at my direction and in my presence. I have reviewed the chart and discharge instructions (if applicable) and agree that the record reflects my personal performance and is accurate and complete. I have confirmed and edited as necessary the relevant ophthalmic history, ROS, and the neuro exam findings as obtained by others. I have seen and examined Shruti Mauricio Mari. I have discussed the case and the management of this patient's care with the Resident/Fellow, if applicable. I also have reviewed and agree with the assessment and plan as stated above and agree with all of its relevant components. Electronically Signed: Jaleesa Soni MD, December 21, 2022 1:15 PM [facility] 12-21-2022 History of Present illness Narrative Tmax: 25, 28; Pachy: 513, 518 Lasers and Surgeries: OD: - OS: - Ocular Medication Intol and Non-efficacy: - Referred by [facility] Now on Timolol OU qam (04/2019 for IOP 20, 29) Latanoprost qam OU (06/2022 19,23 +DH OD) OHTN OS POAG mild OD => new dx 06/2022 based on DH -HVF 06/2022 (in contacts, lids taped) OD MD -3.59, few scattered defects, much better than typical OS MD -5.35, shallow sup paracentral, overall stable -OCT: too myopic OU -Baseline photos 04/2019 -04/2019: I don't think there's glaucomatous optic neuropathy but OHTN, high myopia, FamHx (mom) and thin CCT put her at substantial risk of glaucoma -+DH OD 06/2022 @ 19mmHg => suggestive of early POAG -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 -ideal IOP 16 or less -added latanoprost qd OU 06/2022 and IOP has remained well controlled 6 months refract OU, BAT OD, HVF, dilate Cortical cataract OU -vision is ok but will follow Extreme myopia, myopic degeneration, lattice OU -sees [facility]ua -OCT macula 03/2019 (per [facility]) schisis OU, foveal atrophy OS -H/O CNVM OS post Avastin and Eylea, now quiescent since 2015 -central atrophy OS apparent on VF OS Ptosis OU -affects VS Scribe Attestation: By signing my name below, I, Lorenzo Hagen, attest that this documentation has been prepared under the direction and in the presence of Jaleesa Soni MD. Electronically Signed:cynthia Vaughn, December 21, 2022 12:45 PM I, Jaleesa Soni MD, personally performed the services described in this documentation. All medical record entries made by the scribe were at my direction and in my presence. I have reviewed the chart and discharge instructions (if applicable) and agree that the record reflects my personal performance and is accurate and complete. I have confirmed and edited as necessary the relevant ophthalmic history, ROS, and the neuro exam findings as obtained by others. I have seen and examined Shruti Mari. I have discussed the case and the management of this patient's care with the Resident/Fellow, if applicable. I also have reviewed and agree with the assessment and plan as stated above and agree with all of its relevant components. Electronically Signed: Jaleesa Soni MD, December 21, 2022 1:15 PM documented in this encounter [facility] 07-19-2022 Note HNO ID: [id number] Author: Lorna Singletary MD Service: ? Author Type: Physician Type: Progress Notes Filed: 07/19/2022 2:15 PM Note Text: The documentation for the note below was completed in part by Aime Montenegro acting as a scribe for Lorna Singletary MD. 07/19/2022 1:54 PM. Scribe Attestation: By signing my name below, I, Aime Montenegro, attest that the documentation in part for the note below and the encounter was completed in part by Aime Montenegro acting as a scribe for Lorna Singletary MD. Electronically Signed: Cynthia Otero. July 19, 2022 1:54 PM. All problems with bold in text below addressed at this visit with patient 1. 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 2. Cataracts, Both eyes - Stable, continue to monitor 3. Early POAG OD, OTHN OS - 2/2 OHTN today and +Fam history with Mother (managed on gtts only) - IOP 12/14 - Had disc heme OD 06/2022 so new diagnosis - Continue drops per Dr. Soni 4. Lattice degeneration OU (both eyes) - Emphasized return to office precautions and patient will call with any changes in vision - Remains unchanged on exam - Observe 5. 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 Mason - Doing well, continue to monitor I, Lorna Singletary MD, personally performed the services described in this documentation. All medical record entries made by the scribe were at my direction and in my presence. I have reviewed the chart and discharge instructions (if applicable) and agree that the record reflects my personal performance and is accurate and complete. I have confirmed and edited as necessary the relevant ophthalmic history, ROS, and the neuro exam findings as obtained by others. I have seen and examined Shruti Mari. I have discussed the case and the management of this patient's care with the Resident/Fellow, if applicable. I also have reviewed and agree with the assessment and plan as stated above and agree with all of its relevant components. Electronically Signed: Lorna Singletary MD, July 19, 2022 2:11 PM [facility] 07-19-2022 History of Present illness Narrative The documentation for the note below was completed in part by Aime Montenegro acting as a scribe for Lorna Singletary MD. 07/19/2022 1:54 PM. Scribe Attestation: By signing my name below, I, Aime Montenegro, attest that the documentation in part for the note below and the encounter was completed in part by Aime Montenegro acting as a scribe for Lorna Singletary MD. Electronically Signed: Cynthia Otero. July 19, 2022 1:54 PM. All problems with bold in text below addressed at this visit with patient 1. 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 2. Cataracts, Both eyes - Stable, continue to monitor 3. Early POAG OD, OTHN OS - 2/2 OHTN today and +Fam history with Mother (managed on gtts only) - IOP 02/23 - Had disc heme OD 06/2022 so new diagnosis - Continue drops per Dr. Soni 4. Lattice degeneration OU (both eyes) - Emphasized return to office precautions and patient will call with any changes in vision - Remains unchanged on exam - Observe 5. 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 Mason - Doing well, continue to monitor I, Lorna Singletary MD, personally performed the services described in this documentation. All medical record entries made by the scribe were at my direction and in my presence. I have reviewed the chart and discharge instructions (if applicable) and agree that the record reflects my personal performance and is accurate and complete. I have confirmed and edited as necessary the relevant ophthalmic history, ROS, and the neuro exam findings as obtained by others. I have seen and examined Shruti Mari. I have discussed the case and the management of this patient's care with the Resident/Fellow, if applicable. I also have reviewed and agree with the assessment and plan as stated above and agree with all of its relevant components. Electronically Signed: Lorna Singletary MD, July 19, 2022 2:11 PM documented in this encounter [facility] 06-14-2022 Note HNO ID: [id number] Author: Jaleesa Soni MD Service: ? Author Type: Physician Type: Progress Notes Filed: 06/14/2022 2:52 PM Note Text: Tmax: 25, 28; Pachy: 513, 518 Lasers and Surgeries: OD: - OS: - Ocular Medication Intol and Non-efficacy: - Referred by [facility] Now on Timolol OU qam (04/2019 for IOP 20, 29) OHTN OS POAG mild OD => new dx today 06/2022 based on DH -HVF 06/2022 (in contacts, lids taped) OD MD -3.59, few scattered defects, much better than typical OS MD -5.35, shallow sup paracentral, overall stable -OCT: too myopic OU -Baseline photos 04/2019 -04/2019: I don't think there's glaucomatous optic neuropathy but OHTN, high myopia, FamHx (mom) and thin CCT put her at substantial risk of glaucoma -+DH OD today @ 19mmHg => suggestive of early POAG -IOP not ideal OU -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 Has f/u in July -OCT macula 03/2019 (per [facility]) schisis OU, foveal atrophy OS -H/O CNVM OS post Avastin and Eylea, now quiescent since 2015 -central atrophy OS apparent on VF OS Ptosis OU -affects VS The documentation for this note was completed by Aida Brito acting as a scribe for Jaleesa Soni MD. 06/14/2022 2:19 PM. I, Jaleesa Soni MD, personally performed the services described in this documentation. All medical record entries made by the scribe were at my direction and in my presence. I have reviewed the chart and discharge instructions (if applicable) and agree that the record reflects my personal performance and is accurate and complete. I have confirmed and edited as necessary the relevant ophthalmic history, ROS, and the neuro exam findings as obtained by others. I have seen and examined Shruti Mari. I have discussed the case and the management of this patient's care with the Resident/Fellow, if applicable. I also have reviewed and agree with the assessment and plan as stated above and agree with all of its relevant components. Electronically Signed: Jaleesa Soni MD, June 14, 2022 2:25 PM [facility] 06-14-2022 History of Present illness Narrative Tmax: 25, 28; Pachy: 513, 518 Lasers and Surgeries: OD: - OS: - Ocular Medication Intol and Non-efficacy: - Referred by [facility] Now on Timolol OU qam (04/2019 for IOP 20, 29) OHTN OS POAG mild OD => new dx today 06/2022 based on DH -HVF 06/2022 (in contacts, lids taped) OD MD -3.59, few scattered defects, much better than typical OS MD -5.35, shallow sup paracentral, overall stable -OCT: too myopic OU -Baseline photos 04/2019 -04/2019: I don't think there's glaucomatous optic neuropathy but OHTN, high myopia, FamHx (mom) and thin CCT put her at substantial risk of glaucoma -+DH OD today @ 19mmHg => suggestive of early POAG -IOP not ideal OU -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 Has f/u in July -OCT macula 03/2019 (per [facility]) schisis OU, foveal atrophy OS -H/O CNVM OS post Avastin and Eylea, now quiescent since 2014 -central atrophy OS apparent on VF OS Ptosis OU -affects VS The documentation for this note was completed by Aida Brito acting as a scribe for Jaleesa Soni MD. 06/14/2022 2:19 PM. I, Jaleesa Soni MD, personally performed the services described in this documentation. All medical record entries made by the scribe were at my direction and in my presence. I have reviewed the chart and discharge instructions (if applicable) and agree that the record reflects my personal performance and is accurate and complete. I have confirmed and edited as necessary the relevant ophthalmic history, ROS, and the neuro exam findings as obtained by others. I have seen and examined Shruti Mari. I have discussed the case and the management of this patient's care with the Resident/Fellow, if applicable. I also have reviewed and agree with the assessment and plan as stated above and agree with all of its relevant components. 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 04/23/2019 06/14/2022 Last Assessment & Plan: Assessment: on rx Glaucoma suspect, bilateral 03/19/201904/13 documented as of this encounter (statuses as of 07/19/2022) [facility]04-04-2023 History of Past illness Narrative* Problem Noted Date Resolved Date Optic disc hemorrhage, right 06/14/202206/2022 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 04/23/2019 06/14/2022 Last Assessment & Plan: Assessment: on rx Glaucoma suspect, bilateral 03/19/201904/13 documented as of this encounter (statuses as of 07/20/2022) [facility]04-04-2023 History of Past illness Narrative* Problem Noted Date Diagnosed Date Resolved Date Optic disc hemorrhage, right 06/14/2022 06/14/2022 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 Singletary in 6 months 2. Cataracts, Both eyes - Stable, continue to monitor 3. Glaucoma suspect - 2/2 OHTN today and +Fam history with Mother (managed on gtts only) - IOP 17/17 - Continue timolol once daily OU - Follows with Dr. Soni 4. Lattice degeneration OU (both eyes) - Emphasized return to office precautions and patient will call with any changes in vision - Remains stable on exam, continue to monitor 5. 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 Mason - Doing well, continue to monitor I have seen and examined this patient. I have confirmed and edited as necessary the relevant ophthalmic history, medications, ROS, and the neuro and ophthalmic exam findings as obtained by others andmyself. I have discussed the case and the management of this patient's care with the attending Physician, if applicable. I also have reviewed and agree with the assessment and plan as stated above and agree with all of its relevant components. I have discussed the treatment alternatives with the patient and the patient's family, if applicable. Follow-up as noted below, or sooner if new symptoms develop. documented in this encounterUniversity [facility] Miscellaneous Notes* Telephone Encounter - Jaleesa Soni MD - 12/08/2021 7:29 PM EDT IOP was measured 18,19 this past June with [facility]. I will refill now but will give no further refills until she has a visit. * Telephone Encounter - Diya Aguilar - 12/08/2021 5:15 PM EDT Pharmacy electronically requesting refills as follows: Requested Prescriptions Pending Prescriptions Disp Refills timolol maleate (TIMOPTIC) 0.5 % ophthalmic solution [Pharmacy Med Name: TIMOLOL MALEATE 0.5 % Solution] 15 mL Sig: INSTILL 1 DROP INTO BOTH EYES EVERY MORNING Please review and advise. Recently saw Dr. Mason 07/06/21 Last saw you 05/27/20 Note: FV 06/28/22 Cancelled 12/08/21 refilled 06/28/21 Cancelled 05/28/21 Jaleesa Soni filed at 05/27/2020 10:57 AM Status: Signed Tmax: 25, 28; Pachy: 513, 518 Lasers and Surgeries: OD: - OS: - Ocular Medication Intol and Non-efficacy: - Referred by [facility] Now on Timolol OU qam (04/2019 for IOP 20, 29) OHTN -HVF 05/2020 (in contacts) OD MD worse -7.04, new sup arc that looks like eyelid defect OS MD worse -7.98, new sup arc that looks like eyelid defect, new sup paracentral (geographic atrophy) -OCT: too myopic OU -Baseline photos 04/2019 -04/2019: I don't think there's glaucomatous optic neuropathy but OHTN, high myopia, FamHx (mom) andthin CCT put her at substantial risk of glaucoma -now on timolol OU, IOP is acceptable. 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, now quiescent since 2014 -central atrophy OS apparent on VF OS Ptosis OU -affects VS documented in this encounterUniversity [facility]als [facility]04-26[facility] History of Present illness Narrative* Rivera Mason MD - 07/06/2021 1:15 PM EDT S/p BUL CML ptosis repair 05/25/21 s/p cml bul happy nice results no lag, no spk incision healing well no sig inc dry eye nice contour mrd 3.5, 4 S/P Eyelid Surgery Outcomes: Symmetry excellent Post-op Diagnoses: None dr singletary and dr Farnsworth I have confirmed and edited as necessary the relevant ophthalmic history, ROS, and the neuro exam findings as obtained by others. I have seen and examined this patient. I have discussed the case and the management of this patient's care with the Resident/Fellow, if applicable. I also have reviewed and agree with the assessment and plan as stated above and agree withall of its relevant components. Rivera Mason MD July 06, 2021 1:41 PM documented in this encounterUniversity [facility]als [facility]04-18-2022 Miscellaneous Notes* Telephone Encounter - Natalya Mclaughlin - 06/28/2021 8:49 AM EDT Last seen May 2020; was to return for annual. Canceled and rescheduled to November 2021. documented in this encounterUniversity [facility]als [facility]01-07-2020 History of Past illness Narrative* Problem Noted Date Resolved Date Glaucoma suspect, bilateral 03/19/201904/13 documented as of this encounter (statuses as of 06/28/2021) [facility]01[facility] History of Past illness Narrative* Problem Noted Date Resolved Date Glaucoma suspect, bilateral 03/19/201904/13 documented as of this encounter (statuses as of 07/06/2021) [facility]01[facility] History of Past illness Narrative* Problem Noted Date Resolved Date Glaucoma suspect, bilateral 03/19/201904/13 documented as of this encounter (statuses as of 12/08/2021) [place] [address]-07-2020 History of Past illness Narrative* Problem Noted Date Resolved Date Glaucoma suspect, bilateral 03/19/201904/13 documented as of this encounter (statuses as of 12/27/2021) [facility]* Diagnosis Presbyopia- Primary documented in this encounter [facility]* Diagnosis Postop check- Primary Follow-up examination, following unspecified surgery documented in this encounter [facility]* Diagnosis 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- Primary 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, 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 Preglaucoma, unspecified documented in this encounter [facility]* Diagnosis Primary open angle glaucoma (POAG) of right eye, mild stage- Primary 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, right documented in this encounter [facility]* Diagnosis 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- Primary Lattice degeneration of retina, 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 Primary open angle glaucoma (POAG) of right eye, mild stage Glaucoma suspect of left eye Preglaucoma, unspecified 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 Glaucoma suspect of both eyes Preglaucoma, unspecified documented in this encounter [facility]* Diagnosis Primary open angle glaucoma (POAG) of right eye, mild stage- Primary 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 Cortical senile cataract of both eyes documented in this encounter [facility] Summary Purpose Family History No Family History Records FoundNo Family History Records Found Advance Directives No Advanced Directives Records FoundDocuments on File Type Date Recorded 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 In the event of a Fluress shortage, administer 1 drop of Lynn-Fluor into both eyes as directed for applanation tonometry., OPHT CLINIC MED ORDERS Given 07/19/2022 1:30 PM EDT 1 Drop PHENYLephrine 2.5 % 1 Drop (AK-DILATE, PHIL-SYNEPHRINE) 1 Drop, BOTH EYES, DIRECTED, Starting on Mon07/19/22 at 1330, Until Mon07/20/22 at 0129, Administer for dilation PROTECT FROM LIGHT, OPHT CLINIC MED ORDERS Given 07/19/2022 1:30 PM EDT 1 Drop tropicamide 1 % 1 Drop (MYDRIACYL) 1 Drop, BOTH EYES, DIRECTED, Starting on Mon07/19/22 at 1330, Until Mon07/20/22 at 0129, Administer for dilation, OPHT CLINIC MED ORDERS Given 07/19/2022 1:30 PM EDT 1 Drop Active Administered Medications - up to 3 most recent administrations Medication Order MAR Action Action Date Dose Rate Site fluorescein-benoxinate 0.25-0.4 % 1 Drop (FLURESS) 1 Drop, BOTH EYES, DIRECTED, Starting on Mon12/21/22 at 1330, Until Alysia 12/22/22 at 0129, Administer for applanation tonometry. In the event of a Fluress shortage, administer Lynn-Fluor 1 drop into both eyes as directed for applanation tonometry Given 12/21/2022 1:12 PM EDT 1 Drop Additional Source Comments INFORMATION SOURCE (unrecogn ized section and content) DATE CREATED AUTHOR AUTHOR'S ORGANIZ ATION 01/24/2023 [facility] Source Comments (unrecognize d section and content) In the event this informatio n is protected by the Federal Confidentiality of Alcohol and Drug Abuse Patient Records regulations: The Federal rules restrict any use of the information to criminally investigate or prosecute any alcohol or drug abuse patient.[facility] CenterIn the event this information is protected by the Federal Confidentiality of Alcohol and Drug Abuse Patient Records regulations: The Federal rules restrict any use of the information to criminally investigate or prosecute any alcohol or drug abuse patient.[facility] CenterIn the event this information is protected by the Federal Confidentiality of Alcohol and Drug Abuse Patient Records regulations: The Federal rules restrict any use of the information to criminally investigate or prosecute any alcohol or drug abuse patient.[facility] Center[facility] the event this information is protected by the Federal Confidentiality of Alcohol and Drug Abuse Patient Records regulations: The Federal rules restrict any use of the information to criminally investigate or prosecute any alcohol or drug abuse patient.[facility] CenterIn the event this information is protected by the Federal Confidentiality of Alcohol and Drug Abuse Patient Records regulations: The Federal rules restrict any use of the information to criminally investigate or prosecute any alcohol or drug abuse patient.[facility] CenterIn the event this information is protected by the Federal Confidentiality of Alcohol and Drug Abuse Patient Records regulations: The Federal rules restrict any use of the information to criminally investigate or prosecute any alcohol or drug abuse patient.[facility] CenterIn the event this information is protected by the Federal Confidentiality of Alcohol and Drug Abuse Patient Records regulations: The Federal rules restrict any use of the information to criminally investigate or prosecute any alcohol or drug abuse patient.[facility] CenterIn the event this information is protected by the Federal Confidentiality of Alcohol and Drug Abuse Patient Records regulations: The Federal rules restrict any use of the information to criminally investigate or prosecute any alcohol or drug abuse patient.[facility] CenterIn the event this information is protected by the Federal Confidentiality of Alcohol and Drug Abuse Patient Records regulations: The Federal rules restrict any use of the information to criminally investigate or prosecute any alcohol or drug abuse patient.[facility] Reason for Visit (unrecogniz ed section and content) Reason Comments Contact Lens Purchase Reason Comments Post-op (Ophthalmology) Both Eyes Reason Comments Refill Request Reason Comments Choroidal Neovascular Membrane Follow Up Reason Comments Glaucoma Suspect Follow Up 2 Year Follow Up Both eyes Reason Comments Lattice Degeneration Follow Up Reason Comments Primary Open Angle Glaucoma Follow Up FOR RECORDS PERTAINING TO PATIENTS WHO ARE OR HAVE BEEN ENROLLED IN A CHEMICAL DEPENDENCY/SUBSTANCEABUSE PROGRAM, SOME INFORMATION MAY BE OMITTED. This clinical summary was aggregated from multiple sources. Caution should be exercised in using it in the provision of clinical care. This summary normalizes information from multiple sources, and as a consequence, information in this document may materially change the coding, format and clinical context of patient data. In addition, data may be omitted in some cases. CLINICAL DECISIONS SHOULD BE BASED ON THE PRIMARY CLINICAL RECORDS. [employer] provides no warranty or guarantee of the accuracy or completeness of information in this document.
[2023-05-28 16:27] VITALS: BP 157/79; PULSE 73; RESP 16; TEMP 36.6; O2SAT 99
== END 2023-05-28 16:28 | disposition home or self-care (01) ==
PROVIDERS: Emergency Provider Emergency Medicine; PCP Internal Medicine; Visit Provider Emergency Medicine
DX: L03.011 Cellulitis of right finger (principal); I10 Essential (primary) hypertension; Z79.899 Other long term (current) drug therapy
CPT/HCPCS: 73140; 99283

== ENCOUNTER → 2023-05-31 | Outpatient (CLI) | payer MEDICARE, OTHER, SELFPAY ==
[2023-05-31 15:16] LABS: Absolute Lymphocyte Count 1.45 X10^3/uL (0.83-4.51); Absolute Neutrophil Count 3.2 X10^3/uL (2.0-7.7); Basophil# 0.02 X10^3/uL; Basophil% 0.4 % (0-1); Eosinophil# 0.07 X10^3/uL; Eosinophils% 1.4 % (0-5); Hematocrit 39.3 % (37-47); Hemoglobin 12.7 g/dL (12.0-15.0); Lymphocyte # 1.45 X10^3/ul (0.83-4.51); Mean Corp Hgb Conc 32.3 g/dL (32-36); Mean Corpuscular Hgb 30.2 pg (27.0-32.0); Mean Corpuscular Volume 93.3 fL (81-99); Mean Platelet Vol. 12.4 fl (6.2-12.0); Monocyte# 0.39 X10^3/uL; Monocyte% 7.5 % (0-10); NRBC Flagged by Analyzer 0 % (0-5); Neutrophil # 3.22 X10^3/uL (2.7-7.7); Neutrophil % 62.3 % (47-70); Platelet Count 185 K/mm3 (150-450); RBC Distribution Width CV 12.6 % (11.6-14.6); RBC Distribution Width SD 43.2 fl (35.1-43.9); Red Blood Count 4.21 M/mm3 (4.2-5.4); White Blood Count 5.2 K/mm3 (4.4-11.0)
[2023-05-31 15:41] LABS: Vitamin D,25 Hydroxy 45.2 ng/mL
[2023-05-31 15:52] LABS: ALB/GLOB Ratio 1.1 RATIO (0.9-2.4); AST(SGOT) 22 U/L (15-37); Alanine Aminotransfer ALT/SGPT 25 U/L (13-56); Albumin, Serum 4.1 g/dL (3.2-5.0); Alkaline Phosphatase 60 U/L (45-117); Anion Gap 7 (5-15); BUN 15 mg/dL (7-18); BUN/Creat Ratio 20.3 RATIO (10-20); Calcium,Total 9.9 mg/dL (8.5-10.1); Chloride 102 mmol/L (98-107); Cholesterol 181 mg/dL (200); Creatinine, Serum 0.74 mg/dL (0.55-1.02); EST Glomerular Filtration Rate 82 mL/min (>60); Est Glom Filt Rate - Afr Amer 100 mL/min (>60); Globulin 3.7 g/dL (2.2-4.2); Glucose 94 mg/dL (74-106); High Density Lipoprotein 74 mg/dL; Protein, Total 7.8 g/dL (6.4-8.2); Sodium Level 139 mmol/L (136-145); Triglycerides 43 mg/dL; Very Low Density Lipoprotein 9 mg/dL (5-40)
== END | disposition home or self-care (01) ==
LOC: BIMLAB 13:15
PROVIDERS: PCP Internal Medicine; Referring Provider Internal Medicine; Visit Provider Internal Medicine
DX: I10 Essential (primary) hypertension (principal); M85.80 Other specified disorders of bone density and structure, unspecified site
CPT/HCPCS: 36415; 80053; 80061; 82306; 85025

== ENCOUNTER → 2023-06-02 | Outpatient (CLI) | payer MEDICARE, OTHER, SELFPAY ==
--- NOTE | 2023-06-02 09:36 | BI_ITS ---
MAMMOGRAPHY - BILATERAL SCREENING REASON FOR EXAM: Female, 73 years old. Routine annual screening examination. PERTINENT HISTORY: Non-contributory. TECHNIQUE: Digital bilateral breast gerson (3D mammographic acquisition) in the CC and MLO projections. 2-D mediolateral oblique (MLO) and craniocaudad (CC) views of both breasts were obtained. CAD: Full Field Digital Mammography with Computer Added Detection was performed. COMPARISON: Comparison is made with prior study dated May 31, 2022 and April 29, 2021. FINDINGS: Breast Composition: The breasts are heterogeneously dense, which may obscure small masses. There are no dominant masses or suspicious calcifications. No other significant abnormalities are identified. There has been no significant change since the prior study. BI/SCRN MAMM (CAD)W/GERSON BILAT IMPRESSION: Stable bilateral screening mammogram. Yearly follow-up mammogram recommended. (A) ASSESSMENT CATEGORY: BIRADS Category 1: Negative. A letter regarding these results will be sent to the patient by the facility within 30 days. Approximately 10% of breast cancers are not detected by mammography. A normal mammogram should not delay biopsy of a clinically suspicious abnormality. [id number] Electronically Signed: Noble Fish MD at 11:02 EDT ,
== END | disposition home or self-care (01) ==
PROVIDERS: PCP Internal Medicine; Referring Provider Obstetrics & Gynecology; Visit Provider Obstetrics & Gynecology
DX: Z12.31 Encounter for screening mammogram for malignant neoplasm of breast (principal)
CPT/HCPCS: 77063; 77067

== ENCOUNTER → 2023-10-19 | Outpatient (CLI) | payer MEDICARE, OTHER, SELFPAY ==
[2023-10-19 17:04] LABS: Anion Gap 5 (5-15); BUN 15 mg/dL (7-18); BUN/Creat Ratio 15.6 RATIO (10-20); Calcium,Total 9.7 mg/dL (8.5-10.1); Chloride 102 mmol/L (98-107); Creatinine, Serum 0.96 mg/dL (0.55-1.02); EST Glomerular Filtration Rate 61 mL/min (>60); Est Glom Filt Rate - Afr Amer 74 mL/min (>60); Glucose 89 mg/dL (74-106); Potassium 3.6 mmol/L (3.5-5.1); Sodium Level 141 mmol/L (136-145)
== END | disposition home or self-care (01) ==
PROVIDERS: PCP Internal Medicine; Referring Provider Internal Medicine; Visit Provider Internal Medicine
DX: I10 Essential (primary) hypertension (principal)
CPT/HCPCS: 36415; 80048

== ENCOUNTER → 2024-04-22 | Outpatient (CLI) | payer MEDICARE, OTHER, SELFPAY ==
[2024-04-22 15:34] LABS: Absolute Lymphocyte Count 1.26 X10^3/uL (0.83-4.51); Absolute Neutrophil Count 4.2 X10^3/uL (2.0-7.7); Basophil# 0.03 X10^3/uL; Basophil% 0.5 % (0-1); Eosinophil# 0.09 X10^3/uL; Eosinophils% 1.5 % (0-5); Hemoglobin 12.8 g/dL (12.0-15.0); Lymphocyte # 1.26 X10^3/ul (0.83-4.51); Lymphocyte % 21.1 % (19-41); Mean Corp Hgb Conc 33.7 g/dL (32-36); Mean Platelet Vol. 12.7 fl (6.2-12.0); Monocyte# 0.41 X10^3/uL; Monocyte% 6.9 % (0-10); NRBC Flagged by Analyzer 0 % (0-5); Neutrophil # 4.15 X10^3/uL (2.7-7.7); Neutrophil % 69.5 % (47-70); Platelet Count 166 K/mm3 (150-450); RBC Distribution Width CV 12.2 % (11.6-14.6); RBC Distribution Width SD 41.3 fl (35.1-43.9); Red Blood Count 4.13 M/mm3 (4.2-5.4)
[2024-04-22 16:16] LABS: ALB/GLOB Ratio 1.1 RATIO (0.9-2.4); AST(SGOT) 18 U/L (15-37); Alanine Aminotransfer ALT/SGPT 25 U/L (13-56); Albumin, Serum 4.1 g/dL (3.2-5.0); Alkaline Phosphatase 52 U/L (45-117); Anion Gap 6 (5-15); BUN 20 mg/dL (7-18); BUN/Creat Ratio 25.7 RATIO (10-20); Calcium,Total 9.6 mg/dL (8.5-10.1); Chloride 101 mmol/L (98-107); Cholesterol 208 mg/dL (200); Creatinine, Serum 0.78 mg/dL (0.55-1.02); EST Glomerular Filtration Rate 77 mL/min (>60); Est Glom Filt Rate - Afr Amer 94 mL/min (>60); Globulin 3.6 g/dL (2.2-4.2); Glucose 104 mg/dL (74-106); High Density Lipoprotein 71 mg/dL; Potassium 3.6 mmol/L (3.5-5.1); Protein, Total 7.7 g/dL (6.4-8.2); Sodium Level 138 mmol/L (136-145); Triglycerides 59 mg/dL; Very Low Density Lipoprotein 12 mg/dL (5-40)
== END | disposition home or self-care (01) ==
LOC: BIMLAB 13:34
PROVIDERS: PCP Internal Medicine; Referring Provider Internal Medicine; Visit Provider Internal Medicine
DX: I10 Essential (primary) hypertension (principal); M85.80 Other specified disorders of bone density and structure, unspecified site
CPT/HCPCS: 36415; 80053; 80061; 82306; 85025

== ENCOUNTER → 2024-06-04 | Outpatient (CLI) | payer MEDICARE, OTHER, SELFPAY ==
--- NOTE | 2024-06-04 09:24 | BD_ITS ---
DEXA examination of lumbar spine and both hips. CLINICAL HISTORY: 74-year-old female who is postmenopausal. COMPARISON: DEXA examination dated 05/31/2022 TECHNIQUE: DEXA examination of lumbar spine and both hips. FINDINGS: T-SCORES and BMD Lumbar spine: Bone mineral density measures (1.039) g/cm2; T-score measures -0.1. Z-score measures 2.2. There has been a significant increase in the bone mineral density of the lumbar spine by 4.6% since the prior study dated 05/31/2022 Left femoral neck: Bone mineral density measures (0.678) g/cm2; T-score measures -1.5. Z-score measures 0.4. Left total hip: Bone mineral density measures (0.801) g/cm2; T-score measures -1.1. Z-score measures 0.5 there has been an increase in the bone mineral density of the left hip by 3.2% since the prior study dated 05/31/2022. Right femoral neck: Bone mineral density measures (0.704) g/cm2; T-score measures -1.3. Z-score measures 0.6. Right total hip: Bone mineral density measures (0.788) g/cm2; T-score measures -1.3. Z-score measures 0.3 Fracture Risk Calculation 10 Year Probability of Fracture: Major Osteoporotic Fracture: 10% Hip Fracture: 1.7% Patient demonstrates osteopenia of both hips. Patient demonstrates normal bone mineral density of the lumbar spine. Reading Location: [id number]
--- NOTE | 2024-06-04 10:00 | BI_ITS ---
EXAM: PROCEDURE: MA Mammogram Digital Screen CLINICAL HISTORY: Screening COMPARISON: Mammogram studies dated 06/02/2023 and 05/31/2022 TECHNIQUE: A bilateral screening mammogram was obtained with MLO and CC views of both breasts with digital breast tomosynthesis. BREAST CANCER RISK ASSESSMENT: Does not appear to have been calculated. FINDINGS: No suspicious masses, suspicious calcifications or other suspicious mammogram findings are seen in either breast. Benign-appearing round microcalcifications are seen in the left breast. CONCLUSION: Right Breast: BI-RADS category 2, benign findings Left Breast: BI-RADS category 2, benign findings Breast Composition: There are scattered areas of fibroglandular density. Recommendation: Annual screening mammography Thank you for referring your patient to the [facility], if you have any questions, please call us at the performing site listed at the top of the report. [facility] , [facility] , [facility] and [facility] . Reading Location: [id number]
== END | disposition home or self-care (01) ==
LOC: OPBD 09:21
PROVIDERS: PCP Internal Medicine; Referring Provider Internal Medicine; Visit Provider Internal Medicine
DX: Z12.31 Encounter for screening mammogram for malignant neoplasm of breast (principal); Z78.0 Asymptomatic menopausal state
CPT/HCPCS: 77063; 77067; 77080

== ENCOUNTER → 2024-12-24 | Outpatient (CLI) | payer MEDICARE, OTHER, SELFPAY ==
[2024-12-24 15:53] LABS: AST(SGOT) 25 U/L (<=31); Alanine Aminotransfer ALT/SGPT 24 U/L (<=34); Albumin, Serum 4.7 g/dL (3.4-4.8); Alkaline Phosphatase 65 U/L (35-104); Anion Gap 11 (5-15); BUN 18 mg/dL (4-19); BUN/Creat Ratio 21.2 RATIO (10-20); Calcium,Total 10.3 mg/dL (7.6-11.0); Carbon Dioxide 29.4 mmol/L (21.0-32.0); Chloride 101 mmol/L (98-108); Globulin 2.7 g/dL (2.2-4.2); Glucose 111 mg/dL (70-99); Potassium 4.1 mmol/L (3.3-5.1)
== END | disposition home or self-care (01) ==
LOC: MTLAB 11:15
PROVIDERS: PCP Internal Medicine; Referring Provider Internal Medicine; Visit Provider Internal Medicine
DX: I10 Essential (primary) hypertension (principal)
CPT/HCPCS: 36415; 80053

== ENCOUNTER 2025-02-01 10:18 | Emergency (ER) | payer MEDICARE, OTHER, SELFPAY ==
[2025-02-01 10:19] VITALS: BP 168/69; PULSE 56; RESP 14; TEMP 36.2; O2SAT 98; BMI 22.1
--- NOTE | 2025-02-01 10:30 | RAD_ITS ---
PROCEDURE: FOOT MIN 3 VIEWS 02/01/2025 REASON FOR EXAM: TRAUMA TECHNIQUE: Procedure Code: RADFO Modality: DX Procedure: FOOT MIN 3 VIEWS Laterality: Right COMPARISON: None. FINDINGS: BONES: No acute fracture seen in the foot. There is a nondisplaced fracture of the lateral malleolus. No focal osseous lesion. JOINTS: No dislocation. The joint spaces are normal. SOFT TISSUES: Swelling in the anterior and lateral ankle. RAD/Foot min 3 Views IMPRESSION: Acute lateral malleolus fracture. Reading Location: [id number]
--- NOTE | 2025-02-01 10:30 | RAD_ITS ---
PROCEDURE: ANKLE MIN 3 VIEWS 02/01/2025 REASON FOR EXAM: TRAUMA TECHNIQUE: Procedure Code: RADANK Modality: DX Procedure: ANKLE MIN 3 VIEWS Laterality: Right COMPARISON: None. FINDINGS: BONES: Transverse fracture in the lateral malleolus, without significant displacement. Small plantar calcaneal spur. JOINTS: No dislocation. The joint spaces are preserved. SOFT TISSUES: Swelling in the anterior and lateral ankle. RAD/Ankle min 3 Views IMPRESSION: Acute lateral malleolus fracture. Reading Location: [id number]
--- OUTSIDE RECORDS SUMMARY | 2025-02-01 10:58 | XMS RPT_ITS | CCD ---
Author Organization [facility] Care Team Providers Care Fudge Candy Maker Name Role Phone KATHERYN, JENN E Attending Unavailable KATHERYN, JENN E Primary Care Unavailable KATHERYN, JENN E Admitting Unavailable KATHERYN, JENN E Attending Unavailable KATHERYN, JENN E Primary Care Unavailable KATHERYN, JENN E Admitting Unavailable Dr. Ab Dumont Chi Primary Care Provider Dr. Ab Dumont Chi Referring Provider Dr. Mario Sparks Attending Provider Unavailable Primary Care Provider Dr. Ab Garcia Chi Primary Care Provider Sindy Crespo Attending Provider Unavailable Dr. Ab Dumont Chi Referring Provider Dr. Grey Mendieta Attending Provider Unavailable Primary Care Provider UnavailDr. Ab Schneider Chi Primary Care Provider Dr. Ab Dumont Chi Referring Provider Dr. Esme Gomez Attending Provider [phone] Belle Vicente Attending Provider Unavailable Unavailable Primary Care Provider UnavailDr. Emse Willis Primary Care Provider [phone]) Dr. Esme Gomez Attending Provider [phone] Dr. Esme Gomez Referring Provider [phone] Dr. Esme Gomez Primary Care Provider [phone] Dr. Esme Gomez Attending Provider [phone] Dr. Esme Gomez Referring Provider [phone])2 Dr. Kathe Eric Attending Provider 1(3 30) Care Physician, No Primary Primary Care Provider Unavailable Dr. Esme Gomez Referring Provider [phone] Dr. Kathe Eric Attending Provider 1(3 30) Dr. Esme Gomez Attending Provider [phone] Care Physician, No Primary Primary Care Provider Unavailable Dr. Esme Gomez Primary Care Provider 1(33 0) Unavailable Primary Care Provider Unavaildre Gomez MD, Dr. Victoria Primary Care Provider Patricia SALCIDO, Dr. Victoria Referring Provider 1(33 0) Raina Umana Attending Provider [phone] Patricia SALCIDO, Dr. Victoria Attending Provider 1(33 0) Patricia SALCIDO, Dr. Victoria Primary Care Provider Patricia SALCIDO, Dr. Victoria Attending Provider 1(33 0) Patricia SALCIDO, Dr. Victoria Referring Provider 1(33 0) PRAVEEN ROQUE Attending Unavailable SELF Referring Unavailable JALEESA SONI Attending UnavailGEOVANI Haile Attending Unavailable JOSHUA TANNER Referring Unavailable RIVERA ASHLEYNE Attending Unavailable Patricia SALCIDO, Dr. Victoria Primary Care Physician Patricia SALCIDO, Dr. Victoria Attending Physician [phone]) Oleghe, Efewongbe Referring Unavailable Oleghe, Efewongbe Attending Unavailable Oleghe, Efewongbe Primary Care Unavailable Oleghe, Efewongbe Referring Unavailable Oleghe, Efewongbe Primary Care Unavailable Oleghe, Efewongbe Attending Unavailable Raina John NP Attending Unavailable Oleghe, Efewongbe Referring Unavailable Oleghe, Efewongbe Primary Care Unavailable Oleghe, Efewongbe Attending Unavailable Oleghe, Efewongbe Referring Unavailable Oleghe, Efewongbe Primary Care Unavailable Oleghe, Efewongbe Referring Unavailable Oleghe, Efewongbe Primary Care Unavailable Oleghe, Efewongbe Attending Unavailable Oleolgae, Efewongbe Attending Unavailable Oleolgae, Efewongbe Referring Unavailable Oleghe, Efewongbe Primary Care Unavailable Oleghe, Efewongbe Attending Unavailable Oleolgae, Efewongbe Referring Unavailable Oleolgae, Efewongbe Primary Care Unavailable Allergies Allergy Classification Reported Allergen(s) Allergy Type Date of Onset Reaction(s) Facility (18 sources) Tetracycline; Translations: [TETRACYCLINE] Drug Allergy 11-19-2019 Unknown [facility] Medications Current Medications Medication Drug Class(es) Dates Sig (Normalized) Sig (Original) ascorbic acid 500 mg oral capsule (20 sources) Vitamin C Start: 07-23-2021 Start: 07-23-2021 Ascorbic Acid (Vitamin C) Active MG PO July 23, 2021 12:00am Comment on above: Take 1 tablet by inder th once daily. bacillus coagulans [id number] unt oral tablet (20 sources) Start: 04-06-2022 take 1 capsule by mouth once daily Bacillus coagulans 800 million cell tab Take 1 capsule by mouth once daily. 04/06/2022 Active Start: 04-06-2022 Comment on above: Take 1 capsule by mo uth once daily. benoxinate hydrochloride 4 mg/ml / fluorescein sodium 3 mg/ml ophthalmic solution (13 sources) Diagnostic Dye Start: 09-11-2024 End: 09-11-2024 fluorescein-benoxi shanta 0.3-0.4 % 1 drop (FLURESS) Start: 09-11-2024 End: 09-11-2024 1 drop, BOTH EYES, DIRECT ED, Starting on Mon09/11/24 at 0900, Until Mon09/11/24 at 205, Administer for applanation tonometry. In the event of a Fluress shortage, administer Lynn-Fluor 1 drop into both eyes as directed for applanation tonometry, OPHT CLINIC MED ORDERS Start: 08-06-2024 End: 08-07-2024 fluorescein-benoxinate 0.3-0 .4 % 1 drop (FLURESS) Start: 08-06-2024 End: 08-07-2024 1 drop, BOTH EYES, DIRECT ED, Starting on Mon08/06/24 at 1330, Until Mon08/07/24 at 0129, Administer for applanation tonometry. In the event of a Fluress shortage, administer 1 drop of Lynn-Fluor into both eyes as directed for applanation tonometry., OPHT CLINIC MED ORDERS Start: 02-05-2024 End: 02-06-2024 fluorescein-benoxinate 0.3-0 .4 % 1 Drop (FLURESS) Start: 08-01-2023 End: 08-02-2023 fluorescein-benoxinate 0.25- 0.4 % 1 Drop (FLURESS) Start: 12-21-2022 End: 12-22-2022 fluorescein-benoxinate 0.25- 0.4 % 1 Drop (FLURESS) Start: 07-19-2022 End: 07-20-2022 fluorescein-benoxinate 0.25- 0.4 % 1 Drop (FLURESS) Start: 06-14-2022 End: 06-15-2022 fluorescein-benoxinate 0.25- 0.4 % 1 Drop (FLURESS) Start: 12-27-2021 End: 12-28-2021 fluorescein-benoxinate 0.25- 0.4 % 1 Drop (FLURESS) calcium citrate 1040 mg oral tablet (20 sources) Start: 07-23-2021 take 1 capsule by mouth once daily Calcium Citrate 250 mg calcium tab Take 1 capsule by mouth once daily. 07/23/2021 Active Start: 07-23-2021 take 1 tablet by mouth twice d aily Comment on above: Take 1 capsule by [facility] once daily. latanoprost 0.05 mg/ml ophthalmic solution (20 sources) Prostaglandin Analog Start: 10-19-2023 Start: 06-14-2022 End: 04-22-2024 take 1 drop(s) into the eye(s) once daily in the morning latanoprost (XALATAN) 0.005 % ophthalmic solution Use 1 Drop in both eyes every morning. 10 mL 3 04/22/2024 Active Start: 06-14-2022 take 1 drop(s) into the eye(s) once daily at bedtime latanoprost (XALATAN) 0.005 % ophthalmic solution Use 1 Drop in both eyes daily at bedtime. 7.5 mL 3 06/14/2022 Active Comment on above: Use 1 Drop in both e yes daily at bedtime. Use 1 Drop in both e yes every morning. Magnesium (12 sources) Start: 10-19-2023 take 1 tablet by inder th once daily Start: 10-19-2023 take 1 tablet by mouth once da ami Magnesium 250 mg tablet Active 250 mg PO DAILY October 19, 2023 12:00am take 1 tablet by inder th once daily at bedtime Magnesium 250 mg tab Take 250 mg by mouth daily at bedtime. Active take 1 tablet by inder th once daily at bedtime Magnesium 250 mg tab Take 250 mg by mouth daily at bedtime. 0 Active Comment on above: Take 250 mg by mouth daily at bedtime. mecobalamin 5 mg disintegrating oral tablet (20 sources) Start: 07-23-2021 take 1 tablet by mouth once daily mecobalamin, vitamin B12, 5,000 mcg ODT Take 1 tablet by mouth once daily. 07/23/2021 Active Start: 07-23-2021 Start: 07-23-2021 Mecobalamin (V itamin B12) Active MCG PO July 23, 2021 12:00am Comment on above: Take 1 tablet by inder once daily. Multivitamin (Multiple Vitam ins) tablet (12 sources) Start: 07-23-2021 Start: 07-23-2021 Multivitamin ( Multiple Vitamins) tablet Active 1 {tbl} PO DAILY July 23, 2021 12:00am Start: 07-23-2021 take 1 tablet by inder once daily Multivitamin (Multiple Vitamins) tablet Active 1 TABLET PO DAILY July 22, 2021 11:00pm Start: 07-23-2021 take 1 tablet by inder once daily Multivitamin (Multiple Vitamins) tablet Active 1 TABLET PO DAILY July 23, 2021 12:00am MULTIVITAMIN ORAL (11 sources) Start: 07-23-2021 take 1 capsule by mouth once daily MULTIVITAMIN ORAL Take 1 capsule by mouth once daily. 07/23/2021 Active Start: 07-23-2021 take 1 capsule by mo [facility] once daily MULTIVITAMIN ORAL Take 1 capsule by mouth once daily. 0 07/23/2021 Active Comment on above: Take 1 capsule by mo [facility] once daily. phenylephrine hydrochloride 25 mg/ml ophthalmic solution (13 sources) alpha-1 Adrenergic Agonist Start: 09-11-2024 End: 09-11-2024 PHENYLephrine 2.5 % 1 drop (AK-DILATE, PHIL-SYNEPHRINE) Start: 09-11-2024 End: 09-11-2024 1 drop, BOTH EYES, DIRECT ED, Starting on Mon09/11/24 at 0900, Until Mon09/11/24 at 205, Administer for dilation PROTECT FROM LIGHT, OPHT CLINIC MED ORDERS Start: 08-06-2024 End: 08-07-2024 PHENYLephrine 2.5 % 1 drop ( AK-DILATE, PHIL-SYNEPHRINE) Start: 08-06-2024 End: 08-07-2024 1 drop, BOTH EYES, DIRECT ED, Starting on Mon08/06/24 at 1330, Until Mon08/07/24 at 0129, Administer for dilation PROTECT FROM LIGHT, OPHT CLINIC MED ORDERS Start: 02-05-2024 End: 02-06-2024 PHENYLephrine 2.5 % 1 Drop ( AK-DILATE, PHIL-SYNEPHRINE) Start: 08-01-2023 End: 08-02-2023 PHENYLephrine 2.5 % 1 Drop ( AK-DILATE, PHIL-SYNEPHRINE) Start: 07-19-2022 End: 07-20-2022 PHENYLephrine 2.5 % 1 Drop ( AK-DILATE, PHIL-SYNEPHRINE) Start: 06-14-2022 End: 06-15-2022 PHENYLephrine 2.5 % 1 Drop ( AK-DILATE, PHIL-SYNEPHRINE) Start: 12-27-2021 End: 12-28-2021 PHENYLephrine 2.5 % 1 Drop ( AK-DILATE, PHIL-SYNEPHRINE) proparacaine hydrochloride 5 mg/ml ophthalmic solution (9 sources) Local Anesthetic Start: 09-11-2024 End: 09-11-2024 proparacaine 0.5 % 1 drop (ALCAINE) Start: 08-06-2024 End: 08-07-2024 proparacaine 0.5 % 1 drop (A LCAINE) Start: 02-05-2024 End: 02-06-2024 proparacaine 0.5 % 1 Drop (A LCAINE) Start: 08-01-2023 End: 08-02-2023 proparacaine 0.5 % 1 Drop (A LCAINE) Start: 07-19-2022 End: 07-20-2022 proparacaine 0.5 % 1 Drop (A LCAINE) Start: 12-27-2021 End: 12-28-2021 proparacaine 0.5 % 1 Drop (A LCAINE) propranolol hydrochloride 80 mg oral tablet (20 sources) beta-Adrenergic Betsy Start: 10-19-2023 End: 05-27-2024 take 1 tablet by mouth twice daily Start: 01-11-2023 End: 08-09-2023 take 1 capsule by mouth every twenty-four hours at bedtime Propranolol 80 mg capsule,extended release 24 hr Discontinued 80 mg PO AT BEDTIME 90 June 22, 2023 8:56am August 09, 2023 3:00pm Timolol Maleate (20 sources) beta-Adrenergic Betsy Start: 10-19-2023 Start: 10-19-2023 Timolol Maleat e 0.5 % drops Active NMA OPHTHALMIC October 19, 2023 12:00am Glaucoma treatment Start: 10-19-2023 Timolol Maleat e 0.5 % drops Active NMA OPHTHALMIC October 19, 2023 12:00am Start: 05-20-2022 End: 10-19-2023 take 0.25 drop(s) into the eye(s) once daily Timolol 0.25 % drops Discontinued 1 NMA OPHTHALMIC DAILY May 20, 2022 1:00am October 19, 2023 2:03pm Start: 07-13-2021 End: 04-06-2022 Timolol Maleate 0.5 % drops Discontinued 1 NMA OPHTHALMIC DAILY July 13, 2021 12:00am April 06, 2022 2:35pm Start: 07-13-2021 End: 04-06-2022 Timolol Maleate Discontinued 1 DRP OPHTHALMIC DAILY July 12, 2021 11:00pm April 06, 2022 1:35pm Start: 07-13-2021 End: 04-06-2022 Timolol Maleate Discontinued 1 DRP OPHTHALMIC DAILY July 13, 2021 12:00am April 06, 2022 2:35pm Start: 07-13-2021 Timolol Maleat e Active 1 DRP OPHTHALMIC DAILY July 13, 2021 12:00am Start: 05-27-2020 End: 04-25-2024 timolol maleate (TIMOPTIC) 0 .5 % ophthalmic solution INSTILL 1 DROP INTO BOTH EYES EVERY MORNING 15 mL 3 04/25/2024 Active Comment on above: INSTILL 1 DROP INTO BOTH EYES EVERY MORNING Use 1 Drop in both e yes every morning. tropicamide 10 mg/ml ophthalmic solution (13 sources) Anticholinergic Start: 09-11-2024 End: 09-11-2024 tropicamide 1 % 1 drop (MYDRIACYL) Start: 09-11-2024 End: 09-11-2024 1 drop, BOTH EYES, DIRECT ED, Starting on Mon09/11/24 at 0900, Until Mon09/11/24 at 2059, Administer for dilation, OPHT CLINIC MED ORDERS Start: 08-06-2024 End: 08-07-2024 tropicamide 1 % 1 drop (MYDR IACYL) Start: 08-06-2024 End: 08-07-2024 1 drop, BOTH EYES, DIRECT ED, Starting on Mon08/06/24 at 1330, Until Mon08/07/24 at 0129, Administer for dilation, OPHT CLINIC MED ORDERS Start: 02-05-2024 End: 02-06-2024 tropicamide 1 % 1 Drop (MYDR IACYL) Start: 08-01-2023 End: 08-02-2023 tropicamide 1 % 1 Drop (MYDR IACYL) Start: 07-19-2022 End: 07-20-2022 tropicamide 1 % 1 Drop (MYDR IACYL) Start: 06-14-2022 End: 06-15-2022 tropicamide 1 % 1 Drop (MYDR IACYL) Start: 12-27-2021 End: 12-28-2021 tropicamide 1 % 1 Drop (MYDR IACYL) Completed/Discontinued Medications Medication Drug Class(es) Dates Sig (Normalized) Sig (Original) cephalexin 500 mg oral capsule (6 sources) Cephalosporin Antibacterial Start: 05-28-19 End: 02-19-20 take 1 capsule by mouth every six hours Cephalexin 500 mg capsule Discontinued 500 mg PO EVERY 6 HOURS 28 0 May 28, 2023 12:00am February 19, 2024 9:36am diphenhydrAMINE hydrochloride 25 mg oral capsule (20 sources) Histamine-1 Receptor Antagonist Start: 04-06-19 End: 04-22-19 take 1 capsule by mouth at bedtime Diphenhydramine Hcl (Allergy (Diphenhydramine)) 25 mg capsule Discontinued 25 mg PO AT BEDTIME November 21, 2022 8:59am April 22, 2024 1:58pm erythromycin 0.005 mg/mg ophthalmic ointment (5 sources) Macrolide, Macrolide Antimicrobial Start: 05-26-19 End: 12-28-19 erythromycin (ROMYCIN) 5 mg/gram (0.5 %) ophthalmic ointment Use 1 application in both eyes four times daily. Apply 1/2 inch ribbon per application 3.5 g 2 05/25/2021 12/27/2021 Discontinued Comment on above: Use 1 application in both eyes four times daily. Apply 1/2 inch ribbon per application hydroCHLOROthiazide 12.5 mg oral tablet (9 sources) Thiazide Diuretic Start: 11-26-19 End: 11-26-19 take 1 tablet by mouth once daily in the morning Hydrochlorothiazide 12.5 mg tablet Discontinued 12.5 mg PO EVERY MORNING 30 November 25, 2022 12:00am November 25, 2022 12:13pm hydroCHLOROthiazide 25 mg / valsartan 320 mg oral tablet (20 sources) Thiazide Diuretic, Angiotensin 2 Receptor Betsy Start: 11-26-19 End: 05-28-19 Valsartan-Hydrochlorot hiazide 320-25 mg tablet Discontinued 1 {tbl} PO DAILY August 09, 2023 3:01pm May 27, 2024 4:21pm Start: 11-25-2022 End: 01-17-2023 take 1 tablet by mouth once daily Valsartan-Hydrochlorothiazide Discontinu ed 1 TABLET PO DAILY January 17, 2023 1:42pm January 17, 2023 3:07pm Start: 07-23-2021 End: 11-25-2022 take 1 tablet by mouth once daily Valsartan-Hydrochlorothiazide Discontinu ed 1 TABLET PO DAILY July 23, 2021 12:00am November 25, 2022 12:12pm Start: 06-04-2021 End: 12-21-2022 Valsartan-Hydrochlorothiazid e 320-12.5 mg tablet Discontinued 1 {tbl} PO DAILY July 23, 2021 12:00am November 25, 2022 12:12pm Comment on above: Take 1 tablet by inder th once daily. For 30 days Take 1 tablet by inder th once daily. lisinopril 20 mg oral tablet (12 sources) Angiotensin Converting Enzyme Inhibitor Start: 2 End: 2 take 1 tablet by mouth once daily Lisinopril 20 mg tablet Discontinued 20 mg PO DAILY July 13, 2021 12:00am July 23, 2021 8:54am Problems Active Problems Problem Classification Problem Date Documented Date Episodic/Chronic Allergic reactions (11 sources) H/O: non-drug allergy; Translations: [Allergy status to unspecified drugs, medicaments and biological substances status] 04-06-2022 Episodic Anxiety disorders (14 sources) Anxiety; Translations: [Anxiety disorder, unspecified] Onset: 5 02-24-2023 Chronic Blindness and vision defects (12 sources) Presbyopia; Translations: [Presbyopia] Episodic Cataract (20 sources) Bilateral cortical age-related cataract eyes; Translations: [Cortical age-related cataract, bilateral] Onset: 0 04-23-2019 Chronic Essential hypertension (20 sources) Benign essential hypertension; Translations: [Essential (primary) hypertension] Onset: 2 05-14-2021 Chronic Glaucoma (20 sources) Ocular hypertension, bilateral; Translations: [Ocular hypertension] Onset: 0 Resolved: 3 04-23-2019 Chronic Nonspecific chest pain (13 sources) Chest pain; Translations: [Chest pain, unspecified] Episodic Other aftercare (1 source) Surgical follow-up; Translations: [Encounter for follow-up examination after completed treatment for conditions other than malignant neoplasm] Episodic Other bone disease and musculoskeletal deformities (12 sources) Osteopenia; Translations: [Other specified disorders of bone density and structure, unspecified site] 05-20-2022 Episodic Other circulatory disease (11 sources) H/O: hypertension; Translations: [Personal history of other diseases of the circulatory system] 04-06-2022 Episodic Other eye disorders (20 sources) Degenerative myopia with choroidal neovascularization, left eye; Translations: [Progressive high (degenerative) myopia] Onset: 0 03-19-2019 Chronic Other eye disorders (14 sources) Degenerative disorder of eye; Translations: [Degenerative myopia with foveoschisis, bilateral eye] Onset: 0 03-19-2019 Chronic Other eye disorders (9 sources) Degenerative myopia with foveoschisis, bilateral eye; Translations: [Progressive high (degenerative) myopia] Onset: 0 02-05-2024 Chronic Other lower respiratory disease (11 sources) H/O: asthma; Translations: [Personal history of other diseases of the respiratory system] 04-06-2022 Episodic Other nervous system disorders (11 sources) H/O: migraine; Translations: [Personal history of other diseases of the nervous system and sense organs] 04-06-2022 Episodic Other nervous system disorders (11 sources) H/O: glaucoma; Translations: [Personal history of other diseases of the nervous system and sense organs] 04-06-2022 Episodic Residual codes; unclassified (11 sources) Insomnia; Translations: [Insomnia, unspecified] 11-21-2022 Episodic Retinal detachments; defects; vascular occlusion; and retinopathy (20 sources) Neovascularization of choroid of left eye; Translations: [Retinal neovascularization, unspecified, left eye] Onset: 0 03-19-2019 Chronic Skin and subcutaneous tissue infections (6 sources) Cellulitis of finger; Translations: [Cellulitis of right finger] 05-28-2023 Episodic Unclassified (1 source) Contact lens evaluation Onset: 5 Past or Other Problems Problem Classification Problem Date Documented Da te Episodic/Chronic Other bone disease and musculoskeletal deformities (5 sources) Other specified disorders of bone density and structure, unspecified site; Translations: [Disorder of bone and cartilage, unspecified] Onset: 04-22-2024 05-20-2022 Episodic Other eye disorders (9 sources) Optic disc hemorrhage; Translations: [Other disorders of optic disc, right eye] Onset: 06-14-2022 Resolved: 06-14-2022 Chronic Other eye disorders (17 sources) Bilateral myogenic ptosis of eyes; Translations: [Myogenic ptosis of bilateral eyelids] Onset: 05-14-2021 05-14-2021 Episodic Other screening for suspected conditions (not mental disorders or infectious disease) (1 source) Encounter for screening mammogram for malignant neoplasm of breast; Translations: [Encounter for screening mammogram for malignant neoplasm of breast] Onset: 06-10-2024 Episodic Residual codes; unclassified (10 sources) Insomnia, unspecified; Translations: [Insomnia, unspecified] Onset: 04-22-2024 11-21-2022 Episodic Residual codes; unclassified (1 source) Asymptomatic menopausal state; Translations: [Asymptomatic menopausal state] Onset: 04-22-2024 Episodic Results Test Name Value Interpretation Reference Range Facility Anion gap in Serum or Plasma Ordered By: Esme Gomez on 12-24-2024 Anion gap [Moles/Vol] 11 mmol/L 07-25 [facility] BUN/creatinine ratioOrdered By: Esme Gomez on 12-24-2024 Urea nitrogen/Creatinine [Mass ratio] 21.2 mg/mg High 12-30 [facility] Bilirubin, totalOrdered By: Esme Gomez on 12-24-2024 Bilirubin [Mass/Vol] 0.42 mg/dL 0.00-1.30 [facility] Carbon dioxide, total [Moles /volume] in Central venous bloodOrdered By: Esme Gomez on 12-24-2024 CO2 [Moles/Vol] 29.4 mmol/L 21.0-32.0 [facility] Chloride assayOrdered By: Domenico Gomez on 12-24-2024 Chloride [Moles/Vol] 101 mmol/L 98-108 [facility] Comprehensive Metabolic Prof ilon 12-24-2024 Albumin [Mass/Vol] 4.7 g/dL Normal 3.4-4.8 [facility] Comment on above: Performed By: #### [id number] #### [facility] [address] [place], [place], [id number] Albumin/Globulin [Mass ratio] 1.7 {ratio} Normal 0.9-2.4 [facility] Comment on above: Performed By: #### [id number] #### [facility] [address] [place], [address] ALK PHOS 65 U/L Normal 35-104 [facility] Comment on above: Performed By: #### [id number] #### [facility] [address] [place], [address] ALT [Catalytic activity/Vol] 24 U/L Normal <=34 [facility] Comment on above: Performed By: #### [id number] #### [facility] [address] [place], [address] AST [Catalytic activity/Vol] 25 U/L Normal <=31 [facility] Comment on above: Performed By: #### [id number] #### [facility] [address] [place], [address] Bilirubin [Mass/Vol] 0.42 mg/dL Normal 0.00-1.30 [facility] Comment on above: Performed By: #### [id number] #### [facility] [address] [place], [address] BUN/CRE 21.2 RATIO High 10-20 [facility] Comment on above: Performed By: #### [id number] #### [facility] [address] [place], [address] Calcium [Mass/Vol] 10.3 mg/dL Normal 7.6-11.0 [facility] Comment on above: Performed By: #### [id number] #### [facility] [address] [place], [address] Chloride [Moles/Vol] 101 mmol/L Normal 98-108 [facility] Comment on above: Performed By: #### [id number] #### [facility] [address] [place], [address] CO2 [Moles/Vol] 29.4 mmol/L Normal 21.0-32.0 [facility] Comment on above: Performed By: #### [id number] #### [facility] [address] [place], [address] Creatinine [Mass/Vol] 0.87 mg/dL Normal 0.70-1.20 [facility] Comment on above: Performed By: #### [id number] #### [facility] [address] [place], [address] GAP 11 Normal 5-15 [facility] Comment on above: Performed By: #### [id number] #### [facility] [address] [place], [address] GFR/1.73 sq M.predicted among non-blacks MDRD (S/P/Bld) [Vol rate/Area] 71 mL/min/{1.73_m2} Normal >60 [facility] Comment on above: Result Comment: mL/m in/1.73m2 CKD-EPI Creatinine Equation (2020) Performed By: #### [id number] #### [facility] [address] [place], [address] Globulin (S) [Mass/Vol] 2.7 g/dL Normal 2.2-4.2 [facility] Comment on above: Performed By: #### [id number] #### [facility] [address] [place], [address] Glucose [Mass/Vol] 111 mg/dL High 70-99 [facility] Comment on above: Performed By: #### [id number] #### [facility] [address] [place], [address] Potassium [Moles/Vol] 4.1 mmol/L Normal 3.3-5.1 [facility] Comment on above: Performed By: #### [id number] #### [facility] [address] [place], [address] Sodium [Moles/Vol] 141 mmol/L Normal 133-145 [facility] Comment on above: Performed By: #### [id number] #### [facility] [address] [place], [place], [id number] T PROT 7.4 g/dL Normal 5.9-8.4 [facility] Comment on above: Performed By: #### [id number] #### [facility] [address] [place], [place], [id number] Urea nitrogen [Mass/Vol] 18 mg/dL Normal 4-19 [facility] Comment on above: Performed By: #### L 500.4050 #### [facility] [address] [place], [place], [id number] Glomerular filtration rate ( GFR) estimation/1.73 sq m using serum, plasma, or whole bOrdered By: Esme Gomez on 12-24-2024 GFR/1.73 sq M.predicted among non-blacks MDRD (S/P/Bld) [Vol rate/Area] 71 mL/min/{1.73_m2} >60 [facility] Comment on above: mL/min/1.73m2 CKD-EP I Creatinine Equation (2020) Laboratory - Chemistry and C hemistry - challengeOrdered By: Esme Gomez on 12-24-2024 AST [Catalytic activity/Vol] 25 U/L <32 [facility] Office Visit Reporton 2024 Office Visit Report [facility] [address] [place] [address] OFFICE VISIT Date of Service: 12/24/24 MR#: [id number] Acct: [id number] Patient: HAL MARI Rep #: [id number] : 1950 Provider: GRZEGORZ NURSE Age/Sex: 74/F Location: [facility] Status: Signed Intake Vital Signs 10/23/24 12:54 12/24/24 10:32 12/24/24 10:33 Height 5 ft 5 in Weight: 136 lb 4 oz BMI 22.6 BP 122/68 H 133/78 H Blood Pressure Location Lt brachial Lt brachial Position Sitting Sitting Respiration 16 Pulse 68 Pulse Source Monitor Temp 98.3 F Temp Source Temporal Pulse Oximetry (%) 98 Oxygen Delivery Method room air Comment manual reading nurse check pt reading with BP cuff 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 Visit 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3-5.1 [facility] Serum creatinine measurement (mass/volume)Ordered By: Esme Gomez on 12-24-2024 Creatinine [Mass/Vol] 0.87 mg/dL 0.70-1.20 [facility] Serum globulin measurementOr dered By: Esme Gmoez on 12-24-2024 Globulin (S) [Mass/Vol] 2.7 g/dL 2.2-4.2 [facility] Serum glucose measurement (m ass/volume)Ordered By: Esme Gomez on 12-24-2024 Glucose [Mass/Vol] 111 mg/dL High 70-99 [facility] Serum or plasma alanine morrow otransferase (ALT) measurementOrdered By: Esme Gomez on 12-24-2024 ALT [Catalytic activity/Vol] 24 U/L <35 [facility] Serum or plasma albumin ida urement (mass/volume)Ordered By: Esme Gomez on 12-24-2024 Albumin [Mass/Vol] 4.7 g/dL 3.4-4.8 [facility] Serum or plasma albumin/glob ulin mass ratioOrdered By: Esme Ramosolgajavad on 12-24-2024 Albumin/Globulin [Mass ratio] 1.7 {ratio} 0.9-2.4 [facility] Serum or plasma alkaline imani sphatase measurementOrdered By: Esme Gomez on 12-24-2024 ALP [Catalytic activity/Vol] 65 U/L 35-104 [facility] Serum or plasma calcium ida urement (mass/volume)Ordered By: Esme Gomez on 12-24-2024 Calcium [Mass/Vol] 10.3 mg/dL 7.6-11.0 [facility] Serum or plasma urea nitroge n measurement (mass/volume)Ordered By: Esme Gomez 12-24-2024 Urea nitrogen [Mass/Vol] 18 mg/dL 4-19 [facility] Sodium levelOrdered By: Joe johanny Patricia on 12-24-2024 Sodium [Moles/Vol] 141 mmol/L 133-145 [facility] Total proteinOrdered By: Temojavad holtjacklyn Gomez on 12-24-2024 Protein [Mass/Vol] 7.4 g/dL 5.9-8.4 [facility] Internal Medicine Office Vis darren 10-23-2024 Internal Medicine Office Visit [facility] [address] [place] [address] [place] [address] OFFICE VISIT Date of Service: 10/23/24 MR#: [id number] Acct: [id number] Name: HAL MARI Rep #: [id number] : 1950 Provider: Dr. Esme peng MD Age/Sex: 74/F Location: [facility] Status: Signed Intake Vital Signs 04/22/24 12:59 10/23/24 12:54 Height 5 ft 5 in 5 ft 5 in Weight: 136 lb 4 oz BMI 22.6 Position Sitting Respiration 16 Pulse 68 Pulse Source Monitor Temp 98.3 F Temp Source Temporal Pulse Oximetry (%) 98 Oxygen Delivery Method room air Intake Visit Reasons: 6 M FU Chief Complaint: 6 M FU Online Program Coordinator Required: No Accompanied by: Self Is patient in pain?: No Allergies No Known Allergies Allergy (Verified 10/23/24 12:53) Medications ???Medication ???Instructions ???Recorded ???Confirmed ???Type ascorbic acid (vitamin C) 500 mg mg PO 07/23/21 10/23/24 History capsule calcium citrate 250 mg PO BID 07/23/21 10/23/24 Hi story mecobalamin (vitamin B12) 5,000 mcg PO 07/23/21 10/23/24 History mcg disintegrating tablet multivitamin (Multiple Vitamins 1 tab PO DAILY 07/23/21 10/23/24 H istory tablet) Bacillus coagulans 800 million cell PO 04/06/22 10/23/24 History cell tablet (Digestive Advantage Probiotics-Prebiotic) latanoprost 0.005 % eye drops drp ophthalmic (eye) Glaucoma 11/0310/23/24 History magnesium 250 mg tablet 250 mg PO DAILY 10/19/23 10/23/24 History timolol maleate 0.5 % eye drops drp ophthalmic (eye) Glaucoma 11/0310/23/24 History treatment propranolol 80 mg tablet 80 mg PO BID #180 tabs 05/27/24 Rx valsartan 320 1 tab PO DAILY #90 tabs 05/27/24 0 10/23/24 Rx mg-hydrochlorothiazide 25 mg tablet Have you fallen in the past year?: No PFSH Medical History Insomnia Osteopenia Wears glasses Hx of essential hypertension Hx of migraines Hx of glaucoma History of asthma Hx of seasonal allergies Ptosis of both eyelids Glaucoma Anxiety Surgical History No significant past surgical history Family History Father CAD (coronary artery disease) CABG Myocardial infarction Mother Pancreatic cancer Social History Smoking Status: Never smoker alcohol intake: current alcohol intake frequency: holidays/special occasions only substance use type: does not use caffeine: Yes what type of physical activity do you participate in: walking frequency: 3-4 times per week seatbelt use: always do you feel safe at home: Yes additional social history: -Ty HPI HPI Chief Complaint: 6 M FU Details: HAL MARI, is a 74 F who presents to the office today for follow-up of her chronic conditions. No acute concerns at this time. She states that she has been doing really well since her last visit. Remains rather active. Has made some dietary changes and since then lost 10 pounds. Feels a lot better at current weight. History of hypertension, blood pressure today at 144/76. Typically elevated during visits but she states that she has been monitoring her numbers at home closely and highest systolic readings in the 130s. Currently on propranolol 80 mg twice daily and valsartan hydrochlorothiazide which she is taking consistently. No chest pain, palpitation shortness of breath, syncopal or near syncopal episodes. Her chronic conditions are stable. ROS Const Constitutional: No body ache, excessive sweating, fatigue, fever(s), frequent falls, headache(s), snoring, weakness, weight change, sleep problems or change in appetite Eyes Eyes: No blurry vision, change in vision, vision loss, dry eyes, eye pain or Light sensitivity ENT ENT: No abnormal hearing, ear or mastoid pain, hearing loss, tinnitus, dizziness/vertigo, nasal congestion, headache(s), neck pain or sore throat Resp Respiratory: No cough, excessive phlegm production, hemoptysis, shortness of breath, snoring or wheezing Cardio Cardiology: No chest pain at rest, chest pain with exertion, excessive sweating, shortness of breath, dyspnea on exertion, lightheadedness, orthopnea or palpitations Gastro GI: No abdominal pain, change in bowel habits, constipation, cramping, diarrhea, nausea/dyspepsia or vomiting Genitourinary-Female: No burning urination, painful urination, urinary incontinence, urinary frequency, blood in urine, abnormal periods or pelvic pain Musc Musculoskeletal: No abnormal gait, joint pain, back pain, limited range of motion, neck pain, numbness, stiffness, tingling or Arthritis Skin Skin: No dry skin, redness, lesions, itchy eyes, rash or wounds Connor (more content not included)... Normal [facility] VISUAL FIELD 24-2 OU (BOTH E YES)on 09-11-2024 [facility] Radiology Study observation (narrative) [facility] OCT MACULA CIRRUS OU (BOTH E YES)on 08-06-2024 [facility] Radiology Study observation (narrative) [facility] Bone density reportOrdered B y: Dinorah Mcclendon on 06-06-2024 Study report Skeletal system DXA [facility] Imaging Services [address] [place] [address] Dexa Bone Density Study MR#: [id number] Acct: [id number] Name: HAL MARI Rep #: [id number] : 1950 F 74 From: Omar Mcclendon DO PCP: Dr. Esme Gomez MD Status: R EG CLI Study:Dexa Bone Density Study Date of Exam: 06/04/24 Exam# [id number] Ordering Dr: Javad Gomez MD DEXA examination of lumbar spine and both hips. CLINICAL HISTORY: 74-year-old female who is postmenopausal. COMPARISON: DEXA examination dated 05/31/2022 TECHNIQUE: DEXA examination of lumbar spine and both hips. FINDINGS: T-SCORES and BMD Lumbar spine: Bone mineral density measures (1.039) g/cm2; T-score measures -0.1. Z-score measures 2.2. There has been a significant increase in the bone mineral density of the lumbar spine by 4.6% since the prior study dated 05/31/2022 Left femoral neck: Bone mineral density measures (0.678) g/cm2; T-score measures -1.5. Z-score measures 0.4. Left total hip: Bone mineral density measures (0.801) g/cm2; T-score measures -1.1. Z-score measures 0.5 there has been an increase in the bone mineral density of the left hip by 3.2% since the prior study dated 05/31/2022. Right femoral neck: Bone mineral density measures (0.704) g/cm2; T-score measures -1.3. Z-score measures 0.6. Right total hip: Bone mineral density measures (0.788) g/cm2; T-score measures -1.3. Z-score measures 0.3 Fracture Risk Calculation 10 Year Probability of Fracture: Major Osteoporotic Fracture: 10% Hip Fracture: 1.7% Patient demonstrates osteopenia of both hips. Patient demonstrates normal bone mineral density of the lumbar spine. Reading Location: [facility] CC: Dr. Esme Gomez MD ~ Brake Operator: Signed [facility] Breast imaging reportOrdered By: Dinorah Mcclendon on 06-05-2024 Study report [facility] Imaging Services [address] [place] [address] SCRN MAMM (CAD)W/GERSON BILAT MR#: [id number] Acct: [id number] Name: HAL MARI Rep #: [id number] : 1950 F 74 From: Omar Mcclendon DO PCP: Dr. Esme Gomez MD Status: R EG CLI Study:SCRN MAMM (CAD)W/GERSON BILAT Date of Exa m: 06/04/24 Exam# [id number] Ordering Dr: Raina John DIRECTOR STAFFING DIRECTOR STAFFING-C EXAM: PROCEDURE: MA Mammogram Digital Screen CLINICAL HISTORY: Screening COMPARISON: Mammogram studies dated 06/02/2023 and 05/31/2022 TECHNIQUE: A bilateral screening mammogram was obtained with MLO and CC views of both breasts with digital breast tomosynthesis. BREAST CANCER RISK ASSESSMENT: Does not appear to have been calculated. FINDINGS: No suspicious masses, suspicious calcifications or other suspicious mammogram findings are seen in either breast. Benign-appearing round microcalcifications are seen in the left breast. CONCLUSION: Right Breast: BI-RADS category 2, benign findings Left Breast: BI-RADS category 2, benign findings Breast Composition: There are scattered areas of fibroglandular density. Recommendation: Annual screening mammography Thank you for referring your patient to the [facility], if you have any questions, please call us at the performing site listed at the top of the report. [facility] , [facility] , [facility] and [facility] . Reading Location: [id number] CC: CELINA John; Dr. Esme Gomez MD ~ Brake Operator: Signed [facility] Dexa Bone Density Studyon Dexa Bone Density Study [facility] Imaging Services [address] [place] [address] Dexa Bone Density Study MR#: [id number] Acct: [id number] Name: HAL MARI Rep #: [id number] : 1950 F 74 From: Dinorah Kim PCP: Dr. Esme Gomez MD Status: REG CLI Study: Dexa Bone Density Study Date of Exam: 06/04/24 Exam# [id number] Ordering Dr: Esme Gomez MD DEXA examination of lumbar spine and both hips. CLINICAL HISTORY: 74-year-old female who is postmenopausal. COMPARISON: DEXA examination dated 05/31/2022 TECHNIQUE: DEXA examination of lumbar spine and both hips. FINDINGS: T-SCORES and BMD Lumbar spine: Bone mineral density measures (1.039) g/cm2; T-score measures -0.1. Z-score measures 2.2. There has been a significant increase in the bone mineral density of the lumbar spine by 4.6% since the prior study dated 05/31/2022 Left femoral neck: Bone mineral density measures (0.678) g/cm2; T-score measures -1.5. Z-score measures 0.4. Left total hip: Bone mineral density measures (0.801) g/cm2; T-score measures -1.1. Z-score measures 0.5 there has been an increase in the bone mineral density of the left hip by 3.2% since the prior study dated 05/31/2022. Right femoral neck: Bone mineral density measures (0.704) g/cm2; T-score measures -1.3. Z-score measures 0.6. Right total hip: Bone mineral density measures (0.788) g/cm2; T-score measures -1.3. Z-score measures 0.3 Fracture Risk Calculation 10 Year Probability of Fracture: Major Osteoporotic Fracture: 10% Hip Fracture: 1.7% Patient demonstrates osteopenia of both hips. Patient demonstrates normal bone mineral density of the lumbar spine. Reading Location: [id number] CC: Dr. Esme Gomez MD Brake Operator: Signed Normal [facility] SCRN MAMM (CAD)W/GERSON BILATo n 06-04-2024 SCRN MAMM (CAD)W/GERSON BILAT [facility] Imaging Services [address] [place] [address] SCRN MAMM (CAD)W/GERSON BILAT MR#: [id number] Acct: [id number] Name: HAL MARI Rep #: [id number] : 1950 F 74 From: Dinorah Kim PCP: Dr. Esme Gomez MD Status: REG CLI Study: SCRN MAMM (CAD)W/GERSON BILAT Date of Exam: 05/12 08/04 Exam# [id number] Ordering Dr: Raina John DIRECTOR STAFFING DIRECTOR STAFFING -C EXAM: PROCEDURE: MA Mammogram Digital Screen CLINICAL HISTORY: Screening COMPARISON: Mammogram studies dated 06/02/2023 and 05/31/2022 TECHNIQUE: A bilateral screening mammogram was obtained with MLO and CC views of both breasts with digital breast tomosynthesis. BREAST CANCER RISK ASSESSMENT: Does not appear to have been calculated. FINDINGS: No suspicious masses, suspicious calcifications or other suspicious mammogram findings are seen in either breast. Benign-appearing round microcalcifications are seen in the left breast. CONCLUSION: Right Breast: BI-RADS category 2, benign findings Left Breast: BI-RADS category 2, benign findings Breast Composition: There are scattered areas of fibroglandular density. Recommendation: Annual screening mammography Thank you for referring your patient to the [facility], if you have any questions, please call us at the performing site listed at the top of the report. [facility] , [facility] , [facility] and [facility] . Reading Location: [id number] CC: CELINA John; Dr. Esme Gomez MD Brake Operator: Signed Normal [facility] 55-HT-Jushsed DOrdered By: Javad Gomez on 04-22-2024 Vitamin D 25-Hydroxy 39.0 ng/mL [facility] Comment on above: Vitamin D 25(OH) Sta tus Range Deficiency <20 ng/mL (50nmol/L) Insufficiency 20 - 30 ng/mL (50 - 75 nmol/L) Sufficiency 30 - 100 ng/mL (75 - 250 nmol/L) Toxicity >100 ng/mL (>250 nmol/L) Absolute neutrophil countOrd ered By: Esme Gomez on 04-22-2024 Neutrophils (Bld) [#/Vol] 4.2 10*3/uL 2.0-7.7 [facility] Albumin to globulin ratioOrd ered By: Esme Gomez on 04-22-2024 Albumin/Globulin [Mass ratio] 1.1 {ratio} 0.9-2.4 [facility] Basophil percentageOrdered B y: Esme Gomez on 04-22-2024 Basophils/100 WBC (Bld) 0.5 % 0-1 [facility] Bilirubin, totalOrdered By: Esme Gomez on 04-22-2024 Bilirubin [Mass/Vol] 0.50 mg/dL 0.20-1.00 [facility] Comment on above: For patients on eltr ombopag therapy, use of Dimension [place] TBIL is not recommended. Blood urea nitrogen (BUN)/cr eatinine ratioOrdered By: Esme Gomez on 04-22-2024 Urea nitrogen/Creatinine [Mass ratio] 25.7 mg/mg High 10-20 [facility] CBC W/Diff, Automatedon 04-13 Absolute Lymph 1.26 X10 3/uL Normal 0.83-4.51 [facility] Comment on above: Performed By: #### L 100.0100, L500.4100, L506.1000, L500.4050 #### [facility] [address] [place], [address] Absolute Neut 4.2 X10 3/uL Normal 2.0-7.7 [facility] Comment on above: Performed By: #### L 100.0100, L500.4100, L506.1000, L500.4050 #### [facility] [address] [place], [address] Basophils/100 WBC (Bld) 0.5 % Normal 0-1 [facility] Comment on above: Performed By: #### L 100.0100, L500.4100, L506.1000, L500.4050 #### [facility] [address] [place], [address] Eosinophils/100 WBC (Bld) 1.5 % Normal 0-5 [facility] Comment on above: Performed By: #### L 100.0100, L500.4100, L506.1000, L500.4050 #### [facility] [address] [place], [address] Erythrocyte distribution width (RBC) [Ratio] 12.2 % Normal 11.6-14.6 [facility] Comment on above: Performed By: #### L 100.0100, L500.4100, L506.1000, L500.4050 #### [facility] [address] [place], [address] Hematocrit (Bld) [Volume fraction] 38.0 % Normal 37-47 [facility] Comment on above: Performed By: #### L 100.0100, L500.4100, L506.1000, L500.4050 #### [facility] [address] [place], [address] Hemoglobin (Bld) [Mass/Vol] 12.8 g/dL Normal 12.0-15.0 [facility] Comment on above: Performed By: #### L 100.0100, L500.4100, L506.1000, L500.4050 #### [facility] [address] [place], [address] IG% 0.500 Normal 0.0-0.9 [facility] Comment on above: Result Comment: IG% - Immature Granulocytes (promyelocytes, myelocytes and metamyelocytes) > 1% indicates that a LEFT SHIFT is Present. Performed By: #### L 100.0100, L500.4100, L506.1000, L500.4050 #### [facility] [address] [place], [address] Lymphocytes/100 WBC (Bld) 21.1 % Normal 19-41 [facility] Comment on above: Performed By: #### L 100.0100, L500.4100, L506.1000, L500.4050 #### [facility] [address] [place], [address] MCH (RBC) [Entitic mass] 31.0 pg Normal 27.0-32.0 [facility] Comment on above: Performed By: #### L 100.0100, L500.4100, L506.1000, L500.4050 #### [facility] [address] [place], [address] MCHC (RBC) [Mass/Vol] 33.7 g/dL Normal 32-36 [facility] Comment on above: Performed By: #### L 100.0100, L500.4100, L506.1000, L500.4050 #### [facility] [address] [place], [address] MCV (RBC) [Entitic vol] 92.0 fL Normal 81-99 [facility] Comment on above: Performed By: #### L 100.0100, L500.4100, L506.1000, L500.4050 #### [facility] [address] [place], [address] Monocytes/100 WBC (Bld) 6.9 % Normal 0-10 [facility] Comment on above: Performed By: #### L 100.0100, L500.4100, L506.1000, L500.4050 #### [facility] [address] [place], [address] Neutrophils/100 WBC (Bld) 69.5 % Normal 47-70 [facility] Comment on above: Performed By: #### L 100.0100, L500.4100, L506.1000, L500.4050 #### [facility] [address] [place], [address] Nucleated RBC (Bld) [#/Vol] 0 10*3/uL Normal 0-5 [facility] Comment on above: Performed By: #### L 100.0100, L500.4100, L506.1000, L500.4050 #### [facility] [address] [place], [address] Platelet mean volume (Bld) [Entitic vol] 12.7 fL High 6.2-12.0 [facility] Comment on above: Performed By: #### L 100.0100, L500.4100, L506.1000, L500.4050 #### [facility] [address] [place], [address] Platelets (Bld) [#/Vol] 166 10*3/uL Normal 150-450 [facility] Comment on above: Performed By: #### L 100.0100, L500.4100, L506.1000, L500.4050 #### [facility] [address] [place], [address] RBC (Bld) [#/Vol] 4.13 10*6/uL Low 4.2-5.4 [facility] Comment on above: Performed By: #### L 100.0100, L500.4100, L506.1000, L500.4050 #### [facility] [address] [place], [address] RDW SD 41.3 fl Normal 35.1-43.9 [facility] Comment on above: Performed By: #### L 100.0100, L500.4100, L506.1000, L500.4050 #### [facility] [address] [place], [address] WBC (Bld) [#/Vol] 6.0 10*3/uL Normal 4.4-11.0 [facility] Comment on above: Performed By: #### L 100.0100, L500.4100, L506.1000, L500.4050 #### [facility] [address] [place], [address] Carbon dioxide measurementOr dered By: Esme Gomez on 04-22-2024 CO2 [Moles/Vol] 31.0 mmol/L 21.0-32.0 [facility] Chloride measurementOrdered By: Esme Gomez on 04-22-2024 Chloride [Moles/Vol] 101 mmol/L 98-107 [facility] Comprehensive Metabolic Prof ilon 04-22-2024 Albumin [Mass/Vol] 4.1 g/dL Normal 3.2-5.0 [facility] Comment on above: Performed By: #### L 100.0100, L500.4100, L506.1000, L500.4050 #### [facility] [address] [place], [address] Albumin/Globulin [Mass ratio] 1.1 {ratio} Normal 0.9-2.4 [facility] Comment on above: Performed By: #### L 100.0100, L500.4100, L506.1000, L500.4050 #### [facility] [address] [place], [address] ALK P 52 U/L Normal 45-117 [facility] Comment on above: Performed By: #### L 100.0100, L500.4100, L506.1000, L500.4050 #### [facility] [address] [place], [address] ALT [Catalytic activity/Vol] 25 U/L Normal 13-56 [facility] Comment on above: Performed By: #### L 100.0100, L500.4100, L506.1000, L500.4050 #### [facility] [address] [place], [address] AST [Catalytic activity/Vol] 18 U/L Normal 15-37 [facility] Comment on above: Performed By: #### L 100.0100, L500.4100, L506.1000, L500.4050 #### [facility] [address] [place], [address] Bilirubin [Mass/Vol] 0.50 mg/dL Normal 0.20-1.00 [facility] [facility] Comment on above: Result Comment: For patients on eltrombopag therapy, use of Dimension [place] TBIL is not recommended. Performed By: #### L 100.0100, L500.4100, L506.1000, L500.4050 #### [facility] [address] [place], [address] BUN/CRE 25.7 RATIO High 10-20 [facility] Comment on above: Performed By: #### L 100.0100, L500.4100, L506.1000, L500.4050 #### [facility] [address] [place], [address] CA,Total 9.6 mg/dL Normal 8.5-10.1 [facility] Comment on above: Performed By: #### L 100.0100, L500.4100, L506.1000, L500.4050 #### [facility] [address] [place], [address] Chloride [Moles/Vol] 101 mmol/L Normal 98-107 [facility] Comment on above: Performed By: #### L 100.0100, L500.4100, L506.1000, L500.4050 #### [facility] [address] [place], [address] CO2 [Moles/Vol] 31.0 mmol/L Normal 21.0-32.0 [facility] Comment on above: Performed By: #### L 100.0100, L500.4100, L506.1000, L500.4050 #### [facility] [address] [place], [address] Creatinine [Mass/Vol] 0.78 mg/dL Normal 0.55-1.02 [facility] Comment on above: Result Comment: The validity of the calculated GFR GFRAA in patients over 70 years has not been determined. Clinical correlation is essential. Performed By: #### L 100.0100, L500.4100, L506.1000, L500.4050 #### [facility] [address] [place], [address] EST GFR - AA 94 mL/min Normal >60 [facility] Comment on above: Result Comment: Afri can Welsh GFR Calc Performed By: #### L 100.0100, L500.4100, L506.1000, L500.4050 #### [facility] [address] [place], [address] GAP 6 Normal 5-15 [facility] Comment on above: Performed By: #### L 100.0100, L500.4100, L506.1000, L500.4050 #### [facility] [address] [place], [address] GFR/1.73 sq M.predicted among non-blacks MDRD (S/P/Bld) [Vol rate/Area] 77 mL/min/{1.73_m2} Normal >60 [facility] Comment on above: Result Comment: Non- GFR Calc Performed By: #### L 100.0100, L500.4100, L506.1000, L500.4050 #### [facility] [address] [place], [address] Globulin (S) [Mass/Vol] 3.6 g/dL Normal 2.2-4.2 [facility] Comment on above: Performed By: #### L 100.0100, L500.4100, L506.1000, L500.4050 #### [facility] [address] [place], [address] Glucose [Mass/Vol] 104 mg/dL Normal 74-106 [facility] Comment on above: Result Comment: Fast ing Glucose result from 100 to 125 mg/dL suggests IMPAIRED HOMEOSTASIS per A.D.A. criteria. Performed By: #### L 100.0100, L500.4100, L506.1000, L500.4050 #### [facility] [address] [place], [address] Potassium [Moles/Vol] 3.6 mmol/L Normal 3.5-5.1 [facility] Comment on above: Performed By: #### L 100.0100, L500.4100, L506.1000, L500.4050 #### [facility] [address] [place], [address] Sodium [Moles/Vol] 138 mmol/L Normal 136-145 [facility] Comment on above: Performed By: #### L 100.0100, L500.4100, L506.1000, L500.4050 #### [facility] [address] [place], [address] T PROT 7.7 g/dL Normal 6.4-8.2 [facility] Comment on above: Performed By: #### L 100.0100, L500.4100, L506.1000, L500.4050 #### [facility] [address] [place], [address] Urea nitrogen [Mass/Vol] 20 mg/dL High 7-18 [facility] Comment on above: Performed By: #### L 100.0100, L500.4100, L506.1000, L500.4050 #### [facility] [address] [place], [address] Eosinophil percentageOrdered By: Esme Gomez on 04-22-2024 Eosinophils/100 WBC (Bld) 1.5 % 0-5 [facility] Erythrocyte distribution wid th ratioOrdered By: Esme Gomez on 04-22-2024 Erythrocyte distribution width (RBC) [Ratio] 12.2 % 11.6-14.6 [facility] Erythrocyte distribution wid th standard deviationOrdered By: Esme Gomez on 04-22-2024 Erythrocyte distribution width (RBC) [Entitic vol] 41.3 fL 35.1-43.9 [facility] Estimated glomerular filtrat ion rate (GFR) AmericanOrdered By: Esme Gomez on 04-22-2024 Estimated GFR (MDRD) Amer 94 mL/min >60 [facility] Comment on above: GFR Calc Glomerular filtration rate ( GFR) estimationOrdered By: Esme Gomez on 04-22-2024 Estimated GFR (MDRD) Non-Af Amer 77 mL/min >60 [facility] Comment on above: Non- GFR Calc Glucose measurementOrdered B y: Esme Gomez on 04-22-2024 Glucose [Mass/Vol] 104 mg/dL 74-106 [facility] Comment on above: Fasting Glucose resu lt from 100 to 125 mg/dL suggests IMPAIRED HOMEOSTASIS per A.D.A. criteria. Hematocrit Auto (Bld) [Volum e fraction]Ordered By: Esme Gomez on 04-22-2024 Hematocrit (Bld) [Volume fraction] 38.0 % 37-47 [facility] Hemoglobin measurementOrdere d By: Esme Gomez on 04-22-2024 Hemoglobin (Bld) [Mass/Vol] 12.8 g/dL 12.0-15.0 [facility] High density lipoprotein (HD L) measurementOrdered By: Esme Gomez on 04-22-2024 Cholesterol in HDL [Mass/Vol] 71 mg/dL >40 [facility] Comment on above: The drugs N-Acetylcy steine and Metamizole may falsely depress this assay. Reference Range HDL <40 mg/dL Low HDL Cholesterol HDL >or= 60 mg/dL High HDL Cholesterol Immature granulocytes/100 WB C Auto (Bld)Ordered By: Esme Gomez on 04-22-2024 Immature granulocytes/100 WBC (Bld) 0.500 % 0.0-0.9 [facility] Comment on above: IG% - Immature Granu locytes (promyelocytes, myelocytes and metamyelocytes) > 1% indicates that a LEFT SHIFT is Present. Internal Medicine Office Vis itoreji 04-22-2024 Internal Medicine Office Visit [facility] [place] [address] [place] [address] OFFICE VISIT Date of Service: 04/22/24 MR#: [id number] Acct: [id number] Name: HAL MARI Rep #: [id number] : 1950 Provider: Dr. Esme peng MD Age/Sex: 73/F Location: [facility] Status: Signed Intake Vital Signs 10/19/23 14:03 02/19/24 08:19 04/22/24 12:59 Height 5 ft 5 in 5 ft 5 in 5 ft 5 in Weight: 144 lb BMI 23.9 BP 154/88 H Blood Pressure Location Lt brachial Position Sitting Respiration 16 Pulse 60 Pulse Source Monitor Temp 99.6 F H Temp Source Temporal Pulse Oximetry (%) 99 Oxygen Delivery Method room air Intake Visit Reasons: 6 m fu Chief Complaint: 6 M FU Is patient in pain?: No Allergies No Known Allergies Allergy (Verified 04/22/24 12:58) Medications ???Medication ???Instructions ???Recorded ???Confirmed ???Type ascorbic acid (vitamin C) 500 mg mg PO 07/23/21 04/22/24 History capsule calcium citrate 250 mg PO BID 07/23/21 04/22/24 Hi story mecobalamin (vitamin B12) 5,000 mcg PO 07/23/21 04/22/24 History mcg disintegrating tablet multivitamin (Multiple Vitamins 1 tab PO DAILY 07/23/21 04/22/24 H istory tablet) Bacillus coagulans 800 million cell PO 04/06/22 04/22/24 History cell tablet (Digestive Advantage Probiotics-Prebiotic) valsartan 320 1 tab PO DAILY #90 tabs 08/09/23 0 04/22/24 Rx mg-hydrochlorothiazide 25 mg tablet latanoprost 0.005 % eye drops drp ophthalmic (eye) Glaucoma 11/0304/22/24 History magnesium 250 mg tablet 250 mg PO DAILY 10/19/23 04/22/24 History propranolol 80 mg tablet 80 mg PO BID #180 tabs 10/19/23 Rx timolol maleate 0.5 % eye drops drp ophthalmic (eye) Glaucoma 11/0304/22/24 History treatment Have you fallen in the past year?: No PFSH Medical History Insomnia Osteopenia Wears glasses Hx of essential hypertension Hx of migraines Hx of glaucoma History of asthma Hx of seasonal allergies Ptosis of both eyelids Glaucoma Anxiety Surgical History No significant past surgical history Family History Father CAD (coronary artery disease) CABG Myocardial infarction Mother Pancreatic cancer Social History Smoking Status: Never smoker alcohol intake: current alcohol intake frequency: holidays/special occasions only substance use type: does not use caffeine: Yes what type of physical activity do you participate in: walking frequency: 3-4 times per week seatbelt use: always do you feel safe at home: Yes additional social history: -Ty HPI HPI Chief Complaint: 6 M FU Details: HAL YOUNG, is a 73 F who presents to the office today for follow-up of her chronic conditions. No acute concerns at this time. History of hypertension, blood pressure in office at 154/88 mmHg. Repeat blood pressure with similar readings. She states that she has checked her numbers at home and her numbers have been stable. Last 2 readings at 115/75 and 118/71 mmHg. Taking her medications consistently. No chest pain, palpitation or shortness of breath. Other chronic medical conditions are stable. ROS Const Constitutional: No body ache, chills, excessive sweating, fatigue, fever(s), frequent falls, headache(s), snoring, weakness, sleep problems or change in appetite Eyes Eyes: No blurry vision, change in vision, bulging eyes, floaters, visual disturbances or Light sensitivity ENT ENT: No abnormal hearing, ear or mastoid pain, tinnitus, balance problems, nosebleed/epistaxis, nasal congestion, nasal discharge, headache(s), neck pain or sore throat Resp Respiratory: No cough, excessive phlegm production, pain on inspiration, shortness of breath, snoring or wheezing Cardio Cardiology: No chest pain at rest, chest pain with exertion, excessive sweating, shortness of breath, dyspnea on exertion, lightheadedness, orthopnea or palpitations Gastro GI: No abdominal pain, change in bowel habits, constipation, cramping, diarrhea or nausea/dyspepsia Genitourinary-Female: No burning urination, painful urination, urinary incontinence, urinary frequency, suprapubic fullness or side pain Musc Musculoskeletal: No abnormal gait, joint pain, back pain, limited range of motion, muscle weakness, neck pain or numbness Skin Skin: No dry skin, redness, excessive hair growth, yellowing of the eye, lesions, itchy eyes, rash or wounds Neuro Neurology: No abnormal gait, abnormal hearing, abnormal speech, unsteady gait/balance, weakness, frequent falls, headache(s), memory loss, numbness or visual disturbances Psych Psychiatric: No (more content not included)... Normal [facility] - Chemistry and C hemistry - challengeOrdered By: Esme Gomez on 04-22-2024 AST [Catalytic activity/Vol] 18 U/L 15-37 [facility] Lipid Profileon 04-22-2024 Cholesterol [Mass/Vol] 208 mg/dL High 200 [facility] Comment on above: Result Comment: <200 mg/dL Desirable 200-240 mg/dL Borderline >240 mg/dL High Risk Performed By: #### L 100.0100, L500.4100, L506.1000, L500.4050 #### [facility] [address] [place], [address] Cholesterol in HDL [Mass/Vol] 71 mg/dL Normal [facility] Comment on above: Result Comment: The drugs N-Acetylcysteine and Metamizole may falsely depress this assay. Reference Range HDL <40 mg/dL Low HDL Cholesterol HDL >or= 60 mg/dL High HDL Cholesterol Performed By: #### L 100.0100, L500.4100, L506.1000, L500.4050 #### [facility] [address] [place], [address] Cholesterol in LDL [Mass/Vol] 125 mg/dL Normal 0-130 [facility] Comment on above: Performed By: #### L 100.0100, L500.4100, L506.1000, L500.4050 #### [facility] [address] [place], [address] Cholesterol in VLDL [Mass/Vol] 12 mg/dL Normal 5-40 [facility] Comment on above: Performed By: #### L 100.0100, L500.4100, L506.1000, L500.4050 #### [facility] [address] [place], [address] Triglyceride [Mass/Vol] 59 mg/dL Normal [facility] Comment on above: Result Comment: The drugs N-Acetylcysteine and Metamizole may falsely depress this assay. Serum Triglycerides Reference Interval Normal <150 mg/dL Borderline high 150 - 199 mg/dL High 200 - 499 mg/dL Very High > or = 500 mg/dL Performed By: #### L 100.0100, L500.4100, L506.1000, L500.4050 #### [facility] [place], [address] Low density lipoprotein (LDL ) cholesterol measurementOrdered By: Esme Gomez on 04-22-2024 Cholesterol in LDL [Mass/Vol] 125 mg/dL 0-130 [facility] Lymphocytes Auto (Unsp spec) [#/Vol]Ordered By: Esme Gomez on 04-22-2024 Lymphocytes (Bld) [#/Vol] 1.26 10*3/uL 0.83-4.51 [facility] Lymphocytes/100 WBC Auto (Un sp spec)Ordered By: Esme Gomez on 04-22-2024 Lymphocytes/100 WBC (Bld) 21.1 % 19-41 [facility] MCV (mean corpuscular volume ) determinationOrdered By: Esme Gomez on 04-22-2024 MCV (RBC) [Entitic vol] 92.0 fL 81-99 [facility] Mean corpuscular hemoglobin (MCH) determinationOrdered By: Esme Goemz on 04-22-2024 MCH (RBC) [Entitic mass] 31.0 pg 27.0-32.0 [facility] Mean corpuscular hemoglobin concentration (MCHC) determinationOrdered By: Esme Gomez on 04-22-2024 MCHC (RBC) [Mass/Vol] 33.7 g/dL 32-36 [facility] Mean platelet volume determi nationOrdered By: Esme Gomez on 04-22-2024 Platelet mean volume (Bld) [Entitic vol] 12.7 fL High 6.2-12.0 [facility] Monocyte percentageOrdered B y: Esme Gomez on 04-22-2024 Monocytes/100 WBC (Bld) 6.9 % 0-10 [facility] Neutrophil percentageOrdered By: Esme Gomez on 04-22-2024 Neutrophils/100 WBC (Bld) 69.5 % 47-70 [facility] Nucleated red blood cell per centageOrdered By: Esme Gomez on 04-22-2024 Nucleated RBC/100 WBC (Bld) [Ratio] 0 % 0-5 [facility] Platelet countOrdered By: Domenico Gomez on 04-22-2024 Platelets (Bld) [#/Vol] 166 10*3/uL 150-450 [facility] Potassium measurementOrdered By: Esme Gomez on 04-22-2024 Potassium [Moles/Vol] 3.6 mmol/L 3.5-5.1 [facility] RBC Auto (Bld) [#/Vol]Ordere d By: Esme Gomez on 04-22-2024 RBC (Bld) [#/Vol] 4.13 10*6/uL Low 4.2-5.4 [facility] Serum anion gap measurementO rdered By: Esme Gomez on 04-22-2024 Anion gap [Moles/Vol] 6 mmol/L 5-15 [facility] Serum globulin measurementOr dered By: Esme Gomez on 04-22-2024 Globulin (S) [Mass/Vol] 3.6 g/dL 2.2-4.2 [facility] Serum or plasma alanine morrow otransferase (ALT) measurementOrdered By: Esme Gomez on 04-22-2024 ALT [Catalytic activity/Vol] 25 U/L 13-56 [facility] Serum or plasma albumin ida urement (mass/volume)Ordered By: Esme Gomez on 04-22-2024 Albumin [Mass/Vol] 4.1 g/dL 3.2-5.0 [facility] Serum or plasma alkaline imani sphatase measurementOrdered By: Esme Gomez on 04-22-2024 ALP [Catalytic activity/Vol] 52 U/L 45-117 [facility] Serum or plasma calcium ida urement (mass/volume)Ordered By: Esme Gomez on 04-22-2024 Calcium [Mass/Vol] 9.6 mg/dL 8.5-10.1 [facility] Serum or plasma cholesterol measurement (mass/volume)Ordered By: Esme Gomez on 04-22-2024 Cholesterol [Mass/Vol] 208 mg/dL High <200 [facility] Comment on above: <200 mg/dL Desirable 200-240 mg/dL Borderline >240 mg/dL High Risk Serum or plasma creatinine m easurement (mass/volume)Ordered By: Esme Gomez on 04-22-2024 Creatinine [Mass/Vol] 0.78 mg/dL 0.55-1.02 [facility] Comment on above: The validity of the calculated GFR & GFRAA in patients over 70 years has not been determined. Clinical correlation is essential. Serum or plasma urea nitroge n measurement (mass/volume)Ordered By: Esme Gomez on 04-22-2024 Urea nitrogen [Mass/Vol] 20 mg/dL High 7-18 [facility] Sodium levelOrdered By: Joe Gomez on 04-22-2024 Sodium [Moles/Vol] 138 mmol/L 136-145 [facility] Total proteinOrdered By: Temo Gomez on 04-22-2024 Protein [Mass/Vol] 7.7 g/dL 6.4-8.2 [facility] Triglycerides measurementOrd ered By: Esme Gomez on 04-22-2024 Triglyceride [Mass/Vol] 59 mg/dL <199 [facility] Comment on above: The drugs N-Acetylcy steine and Metamizole may falsely depress this assay.Serum Triglycerides Reference Interval Normal <150 mg/dL Borderline high 150 - 199 mg/dL High 200 - 499 mg/dL Very High > or = 500 mg/dL Very low density lipoprotein (VLDL) cholesterol measurementOrdered By: Esme Gomez on 04-22-2024 VLDL Cholesterol 12 mg/dL 5-40 [facility] Vitamin D,25 Hydroxyon 04-22 Vitamin D 25-OH 39.0 ng/mL Normal [facility] Comment on above: Result Comment: Karo min D 25(OH) Status Range Deficiency <20 ng/mL (50nmol/L) Insufficiency 20 - 30 ng/mL (50 - 75 nmol/L) Sufficiency 30 - 100 ng/mL (75 - 250 nmol/L) Toxicity >100 ng/mL (>250 nmol/L) Performed By: #### L 100.0100, L500.4100, L506.1000, L500.4050 #### [facility] [place], [address] White blood cell (WBC) count Ordered By: Esme Gomez on 04-22-2024 WBC (Bld) [#/Vol] 6.0 10*3/uL 4.4-11.0 [facility] Health Social Work Professor Office Visit Reporton 02-19-2024 Health Social Work Professor Office Visit Report [facility] [address], [address] [place] [address] OFFICE VISIT Date of Service: 02/19/24 MR#: [id number] Acct: [id number] Name: HAL MARI Rep #: [id number] : 1950 Provider: CELINA pulido Age/Sex: 73/F Location: [facility] Status: Signed Intake Vital Signs 02/17/23 08:29 05/31/23 12:52 10/19/23 14:03 02/19/24 08:19 Height 5 ft 5 in 5 ft 5 in 5 ft 5 in 5 ft 5 in Weight: 149 lb BMI 24.7 BP 166/100 H 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 Program Coordinator Required: No Is patient in pain?: No Allergies No Known Allergies Allergy (Verified 02/19/24 08:17) Medications ???Medication ???Instructions ???Recorded ???Confirmed ???Type ascorbic acid (vitamin C) 500 mg mg PO 07/23/21 02/19/24 History capsule calcium citrate 250 mg PO BID 07/23/21 02/19/24 History mecobalamin (vitamin B12) 5,000 mcg PO 07/23/21 02/19/24 History mcg disintegrating tablet multivitamin (Multiple Vitamins 1 tab PO DAILY 07/23/21 02/19/24 History tablet) Bacillus coagulans 800 million cell PO 04/06/22 02/19/24 History cell tablet (Digestive Advantage Probiotics-Prebiotic) diphenhydramine HCl 25 mg capsule 25 mg PO QHS 11/21/22 02/19/24 History (Allergy (diphenhydramine)) valsartan 320 1 tab PO DAILY #90 tabs 08/09/23 02/19/24 Rx mg-hydrochlorothiazide 25 mg tablet latanoprost 0.005 % eye drops drp ophthalmic (eye) Glaucoma 10/19/23 02/19/24 History magnesium 250 mg tablet 250 mg PO DAILY 10/19/23 02/19/24 History propranolol 80 mg tablet 80 mg PO BID #180 tabs 10/19/23 02/19/24 Rx timolol maleate 0.5 % eye drops drp ophthalmic (eye) Glaucoma 10/19/23 02/19/24 History treatment Is last menstrual period known: No Post menopausal: Yes Patient : No : No PFSH Medical History Insomnia Osteopenia Wears glasses Hx of essential hypertension Hx of migraines Hx of glaucoma History of asthma Hx of seasonal allergies Ptosis of both eyelids Glaucoma Anxiety Surgical History No significant past surgical history Family History Father CAD (coronary artery disease) CABG Myocardial infarction Mother Pancreatic cancer Social History (Updated 02/19/24 @ 08:36 by Reny Edmonds) Smoking Status: Never smoker alcohol intake: current alcohol intake frequency: holidays/special occasions only substance use type: does not use caffeine: Yes what type of physical activity do you participate in: walking frequency: 3-4 times per week seatbelt use: always do you feel safe at home: Yes additional social history: -Ty History 2 Elective abortions Hx Para 2 Spontaneous abortions Hx # Term Pregnancies Ectopic pregnancies Hx # Pregnancies Multiple births # of living children Past Pregnancies Del. Date Name GA/Weeks Outcome Route Bth Weight Infant Gen Labor Lgth Anesthesia Del Locatn Provider FOB Unknown Alicia Unknown Taj HPI Encounter for routine gynecological examination Details: HAL MARI is a 73 year old who presents for annual exam. Denies concerns. Note elevated BP- states severe white coat syndrome. She has seen therapist for this. Follows with Dr Gomez. Last PAP: NA History of abnormal PAP: no Last mammogram: 05/2023 History of abnormal mammogram: no Colon cancer screenin Other preventative health care screenings: Oleghe Female Reproductive History Questions: metorrhagia: No, sexually active: Yes, dyspareunia: No (OTC lubricant) and PCB: No Menopausal Treatment: No HRT, No Vaginal Estrogen, No Osphena, No OTC treatments and No prescription non-hormonal treatment ROS Const Constitutional: Denies fatigue, weight gain or weight loss Cardio Card: Denies chest pain Resp Resp: Denies cough or dyspnea on exertion GI GI: Denies abdominal pain, bloating, change in stool character, constipation or vomiting : Reports as per HPI; Denies difficulty voiding, pelvic pain, urinary frequency, urinary incontinence, urinary urgency, vaginal discharge or vaginal pruritus Exam Const General: cooperative, healthy appearing, comfortable, no acute distress, well developed and well groomed HENMT Head: normal to inspection and normocephalic Ears: hearing grossly normal bilaterally and external ears normal Nose: external nose normal Face and sinus: normal facial exam Neck Neck: normal visual inspection, full ROM and no lymphadenopathy Thyroid: thyroid normal Chest Chest palpation inspection: normal inspection of the chest Breast inspection: normal inspection of the breasts and normal in (more content not included)... Normal [facility] OCT MACULA CIRRUS OU (BOTH E YES)on 02-05-2024 [facility] Radiology Study observation (narrative) [facility] VISUAL FIELD 24-2 OU (BOTH E YES)on 08-02-2023 [facility] Radiology Study observation (narrative) [facility] OCT MACULA CIRRUS OU (BOTH E YES)on 08-01-2023 [facility] Radiology Study observation (narrative) [facility] Absolute lymphocyte countOrd ered By: Esme Gomez on 05-31-2023 Lymphocytes Auto (Unsp spec) [#/Vol] 1.45 10*3/uL 0.83-4.51 [facility] Automated lymphocyte count a s percentage of total leukocytesOrdered By: Esme Gomez on 05-31-2023 Lymphocytes/100 WBC Auto (Unsp spec) 28.0 % 19-41 [facility] Basophil percentageOrdered B y: Esme Gomez on 05-31-2023 Basophils/100 WBC (Bld) 0.4 % 0-1 [facility] Bilirubin [Mass/Vol] 0.50 mg/dL 0.20-1.00 [facility] Comment on above: For patients on eltr ombopag therapy, use of Dimension [place] TBIL is not recommended. Chloride [Moles/Vol] 102 mmol/L 98-107 [facility] Cholesterol [Mass/Vol] 181 mg/dL <200 [facility] Comment on above: <200 mg/dL Desirable 200-240 mg/dL Borderline >240 mg/dL High Risk Eosinophils/100 WBC (Bld) 1.4 % 0-5 [facility] Glucose [Mass/Vol] 94 mg/dL 74-106 [facility] Hemoglobin (Bld) [Mass/Vol] 12.7 g/dL 12.0-15.0 [facility] Monocytes/100 WBC (Bld) 7.5 % 0-10 [facility] Neutrophils (Bld) [#/Vol] 3.2 10*3/uL 2.0-7.7 [facility] Neutrophils/100 WBC (Bld) 62.3 % 47-70 [facility] Potassium [Moles/Vol] 4.0 mmol/L 3.5-5.1 [facility] Protein [Mass/Vol] 7.8 g/dL 6.4-8.2 [facility] Sodium [Moles/Vol] 139 mmol/L 136-145 [facility] Triglyceride [Mass/Vol] 43 mg/dL <199 [facility] Comment on above: The drugs N-Acetylcy steine and Metamizole may falsely depress this assay.Serum Triglycerides Reference Interval Normal <150 mg/dL Borderline high 150 - 199 mg/dL High 200 - 499 mg/dL Very High > or = 500 mg/dL WBC (Bld) [#/Vol] 5.2 10*3/uL 4.4-11.0 [facility] Determination of erythrocyte mean corpuscular volume (MCV)Ordered By: Esme Gomez on 05-31-2023 MCV (RBC) [Entitic vol] 93.3 fL 81-99 [facility] Erythrocyte distribution wid th ratioOrdered By: Esme Gomez on 05-31-2023 Erythrocyte distribution width (RBC) [Ratio] 12.6 % 11.6-14.6 [facility] Erythrocyte distribution wid th standard deviationOrdered By: Efmegan Gomez on 05-31-2023 Erythrocyte distribution width (RBC) [Entitic vol] 43.2 fL 35.1-43.9 [facility] Hematocrit Auto (Bld) [Volum e fraction]Ordered By: megan Gomez on 05-31-2023 Hematocrit (Bld) [Volume fraction] 39.3 % 37-47 [facility] Immature granulocytes/100 WB C Auto (Bld)Ordered By: [facility] Gordon[facility] Gomez on 05-31-2023 Immature granulocytes/100 WBC (Bld) 0.400 % 0.0-0.9 [facility] Comment on above: IG% - Immature Granu locytes (promyelocytes, myelocytes and metamyelocytes) > 1% indicates that a LEFT SHIFT is Present. Laboratory - Chemistry and C hemistry - challengeOrdered By: [facility] Gordon[facility]lyn Ramosjavad on 05-31-2023 Albumin/Globulin [Mass ratio] 1.1 {ratio} 0.9-2.4 [facility] ALP [Catalytic activity/Vol] 60 U/L 45-117 [facility] ALT [Catalytic activity/Vol] 25 U/L 13-56 [facility] Cholesterol in HDL [Mass/Vol] 74 mg/dL >40 [facility] Comment on above: The drugs N-Acetylcy steine and Metamizole may falsely depress this assay. Reference Range HDL <40 mg/dL Low HDL Cholesterol HDL >or= 60 mg/dL High HDL Cholesterol Cholesterol in LDL [Mass/Vol] 98 mg/dL 0-130 [facility] CO2 [Moles/Vol] 30.0 mmol/L 21.0-32.0 [facility] Globulin (S) [Mass/Vol] 3.7 g/dL 2.2-4.2 [facility] Urea nitrogen/Creatinine [Mass ratio] 20.3 mg/mg 10-20 [facility] Laboratory - Hematology and Cell countsOrdered By: adrianlivermorejacklyn Gomez on 05-31-2023 MCH (RBC) [Entitic mass] 30.2 pg 27.0-32.0 [facility] MCHC (RBC) [Mass/Vol] 32.3 g/dL 32-36 [facility] Nucleated RBC/100 WBC (Bld) [Ratio] 0 % 0-5 [facility] Platelet mean volume (Bld) [Entitic vol] 12.4 fL 6.2-12.0 [facility] Platelets (Bld) [#/Vol] 185 10*3/uL 150-450 [facility] No Panel InformationOrdered By: Esme Gomez on 05-31-2023 Estimated GFR (MDRD) Amer 100 mL/min >60 [facility] Comment on above: GFR Calc Estimated GFR (MDRD) Non-Af Amer 82 mL/min >60 [facility] Comment on above: Non- GFR Calc Vitamin D 25-Hydroxy 45.2 ng/mL [facility] Comment on above: Vitamin D 25(OH) Sta tus Range Deficiency <20 ng/mL (50nmol/L) Insufficiency 20 - 30 ng/mL (50 - 75 nmol/L) Sufficiency 30 - 100 ng/mL (75 - 250 nmol/L) Toxicity >100 ng/mL (>250 nmol/L) VLDL Cholesterol 9 mg/dL 5-40 [facility] RBC Auto (Bld) [#/Vol]Ordere d By: Esme Gomez on 05-31-2023 RBC (Bld) [#/Vol] 4.21 10*6/uL 4.2-5.4 [facility] Serum or plasma calcium ida urement (mass/volume)Ordered By: Esme Gomez on 05-31-2023 Calcium [Mass/Vol] 9.9 mg/dL 8.5-10.1 [facility] Serum or plasma creatinine m easurement (mass/volume)Ordered By: Esme Gomez on 05-31-2023 Creatinine [Mass/Vol] 0.74 mg/dL 0.55-1.02 [facility] Comment on above: The validity of the calculated GFR & GFRAA in patients over 70 years has not been determined. Clinical correlation is essential. Serum or plasma urea nitroge n measurement (mass/volume)Ordered By: Esme Gomez on 05-31-2023 Urea nitrogen [Mass/Vol] 15 mg/dL 7-18 [facility] Thin prep Papanicolaou smear with manual screeningOrdered By: Esme Gomez on 05-31-2023 Thin prep Papanicolaou smear with manual screening 4.1 g/dL 3.2-5.0 [facility] Thin prep Papanicolaou smear with manual screening 22 U/L 1537 [facility] Thin prep Papanicolaou smear with manual screening 7 5-15 [facility] Basophil percentageOrdered B y: Esme Gomez on 02-24-2023 Chloride [Moles/Vol] 101 mmol/L 98-107 [facility] Glucose [Mass/Vol] 86 mg/dL 74-106 [facility] Potassium [Moles/Vol] 3.9 mmol/L 3.5-5.1 [facility] Sodium [Moles/Vol] 139 mmol/L 136-145 [facility] Laboratory - Chemistry and C hemistry - challengeOrdered By: Esme Gomez on 02-24-2023 CO2 [Moles/Vol] 36.0 mmol/L 21.0-32.0 [facility] Urea nitrogen/Creatinine [Mass ratio] 24.4 mg/mg 12-30 [facility] No Panel InformationOrdered By: Esme Gomez on 02-24-2023 Estimated GFR (MDRD) Amer 84 mL/min >60 [facility] Comment on above: GFR Calc Estimated GFR (MDRD) Non-Af Amer 69 mL/min >60 [facility] Comment on above: Non- GFR Calc Serum or plasma calcium ida urement (mass/volume)Ordered By: Esme Gomez on 02-24-2023 Calcium [Mass/Vol] 9.6 mg/dL 8.5-10.1 [facility] Serum or plasma creatinine m easurement (mass/volume)Ordered By: Esme Gomez on 02-24-2023 Creatinine [Mass/Vol] 0.86 mg/dL 0.55-1.02 [facility] Comment on above: The validity of the calculated GFR & GFRAA in patients over 70 years has not been determined. Clinical correlation is essential. Serum or plasma urea nitroge n measurement (mass/volume)Ordered By: Esme Gomez on 02-24-2023 Urea nitrogen [Mass/Vol] 21 mg/dL 09-27 [facility] Thin prep Papanicolaou smear with manual screeningOrdered By: Esme Gomez on 02-24-2023 Thin prep Papanicolaou smear with manual screening 2 - [facility] Cervical or vagninal specime n microscopic examination by cytology stain (reported asOrdered By: Kathe Rivers on 02-17-2023 Cytology report Cyto stain Doc (Cvx/Vag) Comment . [facility] Comment on above: The Pap smear is a s creening test designed to aid in thedetection of premalignant and malignant conditions of theuterine cervix. It is not a diagnostic procedure andshould not be used as the sole means of detecting cervicalcancer. Both false-positive and false-negative reports dooccur. Detection in cervical specim en of any of human papilloma virus (HPV) 16, 18, 31, 33,Ordered By: Kathe Rivers on 02-17-2023 HPV 16+18+31+33+35+39+45+51+ 52+56+58+59+66+68 DNA Probe+sig amp Ql (Cvx) Negative Negative [facility] Comment on above: This nucleic acid am plification test detects fourteen high-risk HPV types (16,18,31,33,35,39,45,51,52,56,58,59,66,68)without differentiation. Laboratory - CytologyOrdered By: Kathe Rivers on 02-17-2023 [employer] Cyto stain Nom (Cvx/Vag) [ID] Comment . [facility] Comment on above: Russell Barroso ytotechnologist (ASCP) Laboratory - Miscellaneous t estsOrdered By: Kathe Rivers on 02-17-2023 Service comment (Unsp spec) [Interp] Comment . [facility] Comment on above: This liquid based Th inPrep(R) pap test was screened withthe use of an image guided system. Service comment (Unsp spec) [Interp] . . [facility] Liquid-based cerv Pap + CT/G C by ODALYS w reflex to high-risk HPV for ASCUSOrdered By: Kathe Rivers on 02-17-2023 Cytology report Cyto stain.thin prep Doc (Cvx/Vag) Comment . [facility] Comment on above: Criteria not met, HP V Genotype not performed.Performed at: [facility] - [facility] [id number] [place], [place] [id number] Director: Fide Irizarry MD, Phone: [phone] at: =G - [facility] [id number] [facility], [place] [id number] Director: Fide Irizarry MD, Phone: [phone] No Panel InformationOrdered By: Kathe Rivers on 02-17-2023 Pathology report final diagnosis Narrative Comment . [facility] Comment on above: NEGATIVE FOR INTRAEP ITHELIAL LESION OR MALIGNANCY. Basophil percentageOrdered B y: Esme Gomez on 11-21-2022 Chloride [Moles/Vol] 101 mmol/L 98-107 [facility] Glucose [Mass/Vol] 107 mg/dL 74-106 [facility] Comment on above: Fasting Glucose resu lt from 100 to 125 mg/dL suggests IMPAIRED HOMEOSTASIS per A.D.A. criteria. Potassium [Moles/Vol] 4.2 mmol/L 3.5-5.1 [facility] Sodium [Moles/Vol] 139 mmol/L 136-145 [facility] Laboratory - Chemistry and C hemistry - challengeOrdered By: Esme Gomez on 11-21-2022 CO2 [Moles/Vol] 31.0 mmol/L 21.0-32.0 [facility] Urea nitrogen/Creatinine [Mass ratio] 21.8 mg/mg 10-20 [facility] No Panel InformationOrdered By: Esme Gomez on 11-21-2022 Estimated GFR (MDRD) Amer 101 mL/min >60 [facility] Comment on above: GFR Calc Estimated GFR (MDRD) Non-Af Amer 83 mL/min >60 [facility] Comment on above: Non- GFR Calc Serum or plasma calcium ida urement (mass/volume)Ordered By: Esme Gomez on 11-21-2022 Calcium [Mass/Vol] 10.1 mg/dL 8.5-10.1 [facility] Serum or plasma creatinine m easurement (mass/volume)Ordered By: Esme Gomez on 11-21-2022 Creatinine [Mass/Vol] 0.73 mg/dL 0.55-1.02 [facility] Comment on above: The validity of the calculated GFR & GFRAA in patients over 70 years has not been determined. Clinical correlation is essential. Serum or plasma urea nitroge n measurement (mass/volume)Ordered By: Esme Gomez on 11-21-2022 Urea nitrogen [Mass/Vol] 16 mg/dL 7-18 [facility] Thin prep Papanicolaou smear with manual screeningOrdered By: Esme Gomez on 11-21-2022 Thin prep Papanicolaou smear with manual screening 7 5-15 [facility] Absolute lymphocyte countOrd ered By: Dr. Gomez on 05-20-2022 Lymphocytes Auto (Unsp spec) [#/Vol] 1.13 10*3/uL 0.83-4.51 [facility] Basophil percentageOrdered B y: Dr. Gomez on 05-20-2022 Basophils/100 WBC (Bld) 0.5 % 0-1 [facility] Bilirubin [Mass/Vol] 0.50 mg/dL 0.20-1.00 [facility] Comment on above: For patients on eltr ombopag therapy, use of Dimension [place] TBIL is not recommended. Chloride [Moles/Vol] 103 mmol/L 98-107 [facility] Cholesterol [Mass/Vol] 200 mg/dL <200 [facility] Comment on above: <200 mg/dL Desirable 200-240 mg/dL Borderline >240 mg/dL High Risk Eosinophils/100 WBC (Bld) 2.3 % 0-5 [facility] Glucose [Mass/Vol] 101 mg/dL 74-106 [facility] Comment on above: Fasting Glucose resu lt from 100 to 125 mg/dL suggests IMPAIRED HOMEOSTASIS per A.D.A. criteria. Neutrophils (Bld) [#/Vol] 4.2 10*3/uL 2.0-7.7 [facility] Neutrophils/100 WBC (Bld) 69.6 % 47-70 [facility] Potassium [Moles/Vol] 5.0 mmol/L 3.5-5.1 [facility] Protein [Mass/Vol] 7.6 g/dL 6.4-8.2 [facility] Sodium [Moles/Vol] 140 mmol/L 136-145 [facility] Triglyceride [Mass/Vol] 58 mg/dL <199 [facility] Comment on above: The drugs N-Acetylcy steine and Metamizole may falsely depress this assay.Serum Triglycerides Reference Interval Normal <150 mg/dL Borderline high 150 - 199 mg/dL High 200 - 499 mg/dL Very High > or = 500 mg/dL WBC (Bld) [#/Vol] 6.0 10*3/uL 4.4-11.0 [facility] Blood erythrocytes count (nu mber/volume)Ordered By: Dr. Gomez on 05-20-2022 RBC (Bld) [#/Vol] 4.09 10*6/uL 4.2-5.4 [facility] Blood hemoglobin measurement (mass/volume)Ordered By: Dr. Gomez on 05-20-2022 Hemoglobin (Bld) [Mass/Vol] 12.7 g/dL 12.0-15.0 [facility] Blood lymphocytes/100 leukoc ytesOrdered By: Dr. Gomez on 05-20-2022 Lymphocytes/100 WBC (Bld) 18.9 % 19-41 [facility] Blood monocytes/100 leukocyt esOrdered By: Dr. Gomez on 05-20-2022 Monocytes/100 WBC (Bld) 8.4 % 0-10 [facility] Blood platelet mean volumeOr dered By: Dr. Gomez on 05-20-2022 Platelet mean volume (Bld) [Entitic vol] 12.2 fL 6.2-12.0 [facility] Determination of erythrocyte mean corpuscular volume (MCV)Ordered By: Dr. Gomez on 05-20-2022 MCV (RBC) [Entitic vol] 94.4 fL 81-99 [facility] Hematocrit Auto (Bld) [Volum e fraction]Ordered By: Dr. Gomez on 05-20-2022 Hematocrit (Bld) [Volume fraction] 38.6 % 37-47 [facility] Laboratory - Chemistry and C hemistry - challengeOrdered By: Dr. Gomez on 05-20-2022 ALP [Catalytic activity/Vol] 63 U/L 45-117 [facility] ALT [Catalytic activity/Vol] 27 U/L 13-56 [facility] CO2 [Moles/Vol] 31.0 mmol/L 21.0-32.0 [facility] Globulin (S) [Mass/Vol] 3.4 g/dL 2.2-4.2 [facility] Urea nitrogen/Creatinine [Mass ratio] 23.0 mg/mg 10-20 [facility] Laboratory - Hematology and Cell countsOrdered By: Dr. Gomez on 05-20-2022 Erythrocyte distribution width (RBC) [Entitic vol] 44.7 fL 35.1-43.9 [facility] Erythrocyte distribution width (RBC) [Ratio] 12.9 % 11.6-14.6 [facility] Immature granulocytes/100 WBC (Bld) 0.300 % 0.0-0.9 [facility] Comment on above: IG% - Immature Granu locytes (promyelocytes, myelocytes and metamyelocytes) > 1% indicates that a LEFT SHIFT is Present. MCH (RBC) [Entitic mass] 31.1 pg 27.0-32.0 [facility] Nucleated RBC/100 WBC (Bld) [Ratio] 0 % 0-5 [facility] MCHC Auto (RBC) [Mass/Vol]Or dered By: Dr. Gomez on 05-20-2022 MCHC (RBC) [Mass/Vol] 32.9 g/dL 32-36 [facility] No Panel InformationOrdered By: Dr. Gomez on 05-20-2022 Estimated GFR (MDRD) Amer 125 mL/min >60 [facility] Comment on above: GFR Calc Estimated GFR (MDRD) Non-Af Amer 103 mL/min >60 [facility] Comment on above: Non- GFR Calc Vitamin D 25-Hydroxy 43.2 ng/mL [facility] Comment on above: Vitamin D 25(OH) Sta tus Range Deficiency <20 ng/mL (50nmol/L) Insufficiency 20 - 30 ng/mL (50 - 75 nmol/L) Sufficiency 30 - 100 ng/mL (75 - 250 nmol/L) Toxicity >100 ng/mL (>250 nmol/L) Platelets bldOrdered By: Dr. Gomez on 05-20-2022 Platelets (Bld) [#/Vol] 154 10*3/uL 150-450 [facility] Serum or plasma albumin ida urement (mass/volume)Ordered By: Dr. Gomez on 05-20-2022 Albumin [Mass/Vol] 4.2 g/dL 3.2-5.0 [facility] Serum or plasma albumin/glob ulin mass ratioOrdered By: Dr. Gomez on 05-20-2022 Albumin/Globulin [Mass ratio] 1.2 {ratio} 0.9-2.4 [facility] Serum or plasma calcium ida urement (mass/volume)Ordered By: Dr. Gomez on 05-20-2022 Calcium [Mass/Vol] 9.8 mg/dL 8.5-10.1 [facility] Serum or plasma cholesterol in HDL measurement (mass/volume)Ordered By: Dr. Gomez on 05-20-2022 Cholesterol in HDL [Mass/Vol] 77 mg/dL >40 [facility] Comment on above: The drugs N-Acetylcy steine and Metamizole may falsely depress this assay. Reference Range HDL <40 mg/dL Low HDL Cholesterol HDL >or= 60 mg/dL High HDL Cholesterol Serum or plasma cholesterol in VLDL measurement (mass/volume)Ordered By: Dr. Gomez on 05-20-2022 Cholesterol in VLDL [Mass/Vol] 12 mg/dL 5-40 [facility] Serum or plasma creatinine m easurement (mass/volume)Ordered By: Dr. Gomez on 05-20-2022 Creatinine [Mass/Vol] 0.61 mg/dL 0.55-1.02 [facility] Comment on above: The validity of the calculated GFR & GFRAA in patients over 70 years has not been determined. Clinical correlation is essential. Serum or plasma low density lipoprotein (LDL) cholesterol measurement (mass/volume)Ordered By: Dr. Gomez on 05-20-2022 Cholesterol in LDL [Mass/Vol] 111 mg/dL 0-130 [facility] Serum or plasma urea nitroge n measurement (mass/volume)Ordered By: Dr. Gomez on 05-20-2022 Urea nitrogen [Mass/Vol] 14 mg/dL 7-18 [facility] Thin prep Papanicolaou smear with manual screeningOrdered By: Dr. Gomez on 05-20-2022 Thin prep Papanicolaou smear with manual screening 23 U/L 15-37 [facility] Thin prep Papanicolaou smear with manual screening 6 5-15 [facility] Basophil percentageon 2021 Chloride [Moles/Vol] 102 mmol/L 98-107 [facility] Work Phone: Glucose [Mass/Vol] 105 mg/dL 74-106 [facility] Work Phone: Comment on above: Fasting Glucose resu lt from 100 to 125 mg/dL suggests IMPAIRED HOMEOSTASIS per A.D.A. criteria. Potassium [Moles/Vol] 4.1 mmol/L 3.5-5.1 [facility] Work Phone: Sodium [Moles/Vol] 137 mmol/L 136-145 [facility] Work Phone: Laboratory - Chemistry and C hemistry - challengeon 06-21-2021 CO2 [Moles/Vol] 30.0 mmol/L 21.0-32.0 [facility] Work Phone: Urea nitrogen/Creatinine [Mass ratio] 27.7 mg/mg 10-20 [facility] Work Phone: No Panel Informationon 06-21 Estimated GFR (MDRD) Amer 109 mL/min >60 [facility] Work Phone: Comment on above: GFR Calc Estimated GFR (MDRD) Non-Af Amer 90 mL/min >60 [facility] Work Phone: Comment on above: Non- GFR Calc Serum or plasma calcium ida urement (mass/volume)on 06-21-2021 Calcium [Mass/Vol] 10.1 mg/dL 8.5-10.1 [facility] Work Phone: Serum or plasma creatinine m easurement (mass/volume)on 06-21-2021 Creatinine [Mass/Vol] 0.69 mg/dL 0.55-1.02 [facility] Work Phone: Comment on above: The validity of the calculated GFR & GFRAA in patients over 70 years has not been determined. Clinical correlation is essential. Serum or plasma urea nitroge n measurement (mass/volume)on 06-21-2021 Urea nitrogen [Mass/Vol] 19 mg/dL 7-18 [facility] Work Phone: Thin prep Papanicolaou smear with manual screeningon 06-21-2021 Thin prep Papanicolaou smear with manual screening 5 5-15 [facility] Work Phone: Laboratory - Microbiology an d Antimicrobial susceptibilityon 03-03-2021 SARS-CoV-2 (COVID-19) RNA ODALYS+probe Ql (Unsp spec) Not detected Not Detect [facility] Work Phone: Comment on above: Normal Reference Ran ge: Not DetectedMethod:(RT-PCR) real-time reverse transcriptase PCRLuminex mWater Instrument*The Food and Drug Administration (FDA) has issued an Emergency Use Authorization (EAU) for the mWater SARS-CoV-2 Assay for the rapid detection of the virus that causes COVID-19. This test has been validated, but the FDAs independent review of this validation is pending.*Negative results do not preclude infection and should not be used as the sole basis for treatment or patient management. Optimum specimen types and timing for peak viral levels during infections caused by SARS-CoV-2 have not been determined. Collection of multiple specimens from the same patient may be necessary to detect the virus. The possibility of a false negative result should be considered if the patient has clinical presentation or has had recent exposure. No Panel Information [facility] Vital Signs Date Time Vital Sign Value Performing Clinician Faci lity 12-24-2024 10:33-0400 Diastolic blood pressure 78 mm[Hg] Dr. Esme Gomez MD Work Phone: [facility] 12-24-2024 10:33-0400 Systolic blood pressure 133 mm[Hg] Dr. Esme Gomez MD Work Phone: [facility] 10-23-2024 12:54-0400 Body height 165.[address] Esme Gomez MD Work Phone: [facility] 10-23-2024 12:54-0400 Body mass index (BMI) [Ratio] 22.6 kg/m2 Dr. Esme Gomez MD Work Phone: [facility] 10-23-2024 12:54-0400 Body temperature 98.3 [degF] Dr. Esme Gomez MD Work Phone: [facility] 10-23-2024 12:54-0400 Body weight 61.[address] Esme Gomez MD Work Phone: [facility] 10-23-2024 12:54-0400 Heart rate 68 /min Dr. Esme Gomez MD Work Phone: [facility] 10-23-2024 12:54-0400 Respiratory rate 16 /min Dr. Esme Gomez MD Work Phone: [facility] 10-23-2024 12:54-0400 SaO2% (BldA) [Mass fraction] 98 % Dr. Esme Gomez MD Work Phone: [facility] 04-22-2024 12:59-0500 Body height 165.[address] Esme Gomez MD Work Phone: [facility] 04-22-2024 12:59-0500 Body mass index (BMI) [Ratio] 23.9 kg/m2 Dr. Esme Gomez MD Work Phone: [facility] 04-22-2024 12:59-0500 Body temperature 99.6 [degF] Dr. Esme Gomez MD Work Phone: [facility] 04-22-2024 12:59-0500 Body weight 65.[address] Esme Gomez MD Work Phone: [facility] 04-22-2024 12:59-0500 Diastolic blood pressure 88 mm[Hg] Dr. Esme Gomez MD Work Phone: [facility] 04-22-2024 12:59-0500 Heart rate 60 /min Dr. Esme Gomez MD Work Phone: [facility] 04-22-2024 12:59-0500 Respiratory rate 16 /min Dr. Esme Gomez MD Work Phone: [facility] 04-22-2024 12:59-0500 SaO2% (BldA) [Mass fraction] 99 % Dr. Esme Gomez MD Work Phone: [facility] 04-22-2024 12:59-0500 Systolic blood pressure 154 mm[Hg] Dr. Esme Gomez MD Work Phone: [facility] 02-19-2024 08:19-0500 Body mass index (BMI) [Ratio] 24.7 kg/m2 Dr. Esme Gomez MD Work Phone: [facility] 02-19-2024 08:19-0500 Body weight 67.[address] Esme Gomez MD Work Phone: [facility] 02-19-2024 08:19-0500 Diastolic blood pressure 100 mm[Hg] Dr. Esme Gomez MD Work Phone: [facility] 02-19-2024 08:19-0500 Systolic blood pressure 166 mm[Hg] Dr. Esme Gomez MD Work Phone: [facility] 05-31-2023 12:52-0400 Body height 165.[address] Esme Gomez Work Phone: [facility] 05-31-2023 12:52-0400 Body mass index (BMI) [Ratio] 23.9 kg/m2 Dr. Esme Gomez Work Phone: [facility] 05-31-2023 12:52-0400 Body temperature 98.6 [degF] Dr. Esme Gomez Work Phone: [facility] 05-31-2023 12:52-0400 Body weight 65.[address] Esme Gomez Work Phone: [facility] 05-31-2023 12:52-0400 Diastolic blood pressure 76 mm[Hg] Dr. Esme Gomez Work Phone: [facility] 05-31-2023 12:52-0400 Heart rate 73 /min Dr. Esme Gomez Work Phone: [facility] 05-31-2023 12:52-0400 Respiratory rate 16 /min Dr. Esme Gomez Work Phone: [facility] 05-31-2023 12:52-0400 SaO2% (BldA) [Mass fraction] 99 % Dr. Esme Gomez Work Phone: [facility] 05-31-2023 12:52-0400 Systolic blood pressure 138 mm[Hg] Dr. Esme Gomez Work Phone: [facility] 05-28-2023 16:27-0400 Body temperature 98 [degF] Dr. Esme Gomez Work Phone: [facility] 05-28-2023 16:27-0400 Diastolic blood pressure 79 mm[Hg] Dr. Esme Gomez Work Phone: [facility] 05-28-2023 16:27-0400 Heart rate 73 /min Dr. Esme Gomez Work Phone: [facility] 05-28-2023 16:27-0400 Respiratory rate 16 /min Dr. Esme Gomez Work Phone: [facility] 05-28-2023 16:27-0400 SaO2% (BldA) [Mass fraction] 99 % Dr. Esme Gomez Work Phone: [facility] 05-28-2023 16:27-0400 Systolic blood pressure 157 mm[Hg] Dr. Esme Gomez Work Phone: [facility] 05-28-2023 15:18-0400 Body height 165.[address] Esme Gomez Work Phone: [facility] 05-28-2023 15:18-0400 Body mass index (BMI) [Ratio] 24 kg/m2 Dr. Esme Gomez Work Phone: [facility] 05-28-2023 15:18-0400 Body weight 65.[address] Esme Gomez Work Phone: [facility] 02-24-2023 14:28-0500 Body height 165.[address] Esme Gomez Work Phone: [facility] 02-24-2023 14:28-0500 Body mass index (BMI) [Ratio] 24 kg/m2 Dr. Esme Gomez Work Phone: [facility] 02-24-2023 14:28-0500 Body temperature 97.7 [degF] Dr. Esme Gomez Work Phone: [facility] 02-24-2023 14:28-0500 Body weight 65.[address] Esme Gomez Work Phone: [facility] 02-24-2023 14:28-0500 Diastolic blood pressure 82 mm[Hg] Dr. Esme Gomez Work Phone: [facility] 02-24-2023 14:28-0500 Heart rate 77 /min Dr. Esme Gomez Work Phone: [facility] 02-24-2023 14:28-0500 Respiratory rate 16 /min Dr. Esme Gomez Work Phone: [facility] 02-24-2023 14:28-0500 SaO2% (BldA) [Mass fraction] 99 % Dr. Esme Gomez Work Phone: [facility] 02-24-2023 14:28-0500 Systolic blood pressure 132 mm[Hg] Dr. Esme Gomez Work Phone: [facility] 02-17-2023 08:29-0500 Body height 165.[address] Esme Gomez Work Phone: [facility] 02-17-2023 08:29-0500 Body mass index (BMI) [Ratio] 24.2 kg/m2 Dr. Esme Gomez Work Phone: [facility] 02-17-2023 08:29-0500 Body weight 65.[address] Esme Gomez Work Phone: [facility] 02-17-2023 08:29-0500 Diastolic blood pressure 95 mm[Hg] Dr. Esme Gomez Work Phone: [facility] 02-17-2023 08:29-0500 Systolic blood pressure 171 mm[Hg] Dr. Esem Gomez Work Phone: [facility] 01-10-2023 14:45-0400 Diastolic blood pressure 90 mm[Hg] Dr. Esme Gomez Work Phone: [facility] 01-10-2023 14:45-0400 Heart rate 75 /min Dr. Esme Gomez Work Phone: [facility] 01-10-2023 14:45-0400 Respiratory rate 16 /min Dr. Esme Gomez Work Phone: [facility] 01-10-2023 14:45-0400 SaO2% (BldA) [Mass fraction] 99 % Dr. Esme Gomez Work Phone: [facility] 01-10-2023 14:45-0400 Systolic blood pressure 190 mm[Hg] Dr. Esme Gomez Work Phone: [facility] 11-23-2022 16:59-0400 Diastolic blood pressure 74 mm[Hg] Dr. Esme Gomez Work Phone: [facility] 11-23-2022 16:59-0400 Systolic blood pressure 136 mm[Hg] Dr. Esme Gomez Work Phone: [facility] 11-21-2022 09:01-0400 Body height 165.[address] Esme Gomez Work Phone: [facility] 11-21-2022 09:01-0400 Body mass index (BMI) [Ratio] 22.9 kg/m2 Dr. Esme Gomez Work Phone: [facility] 11-21-2022 09:01-0400 Body temperature 99.5 [degF] Dr. Esme Gomez Work Phone: [facility] 11-21-2022 09:01-0400 Body weight 62.[address] Esme Gomez Work Phone: [facility] 11-21-2022 09:01-0400 Diastolic blood pressure 90 mm[Hg] Dr. Esme Gomez Work Phone: [facility] 11-21-2022 09:01-0400 Heart rate 78 /min Dr. Esme Gomez Work Phone: [facility] 11-21-2022 09:01-0400 Respiratory rate 16 /min Dr. Esme Gomez Work Phone: [facility] 11-21-2022 09:01-0400 SaO2% (BldA) [Mass fraction] 99 % Dr. Esme Gomez Work Phone: [facility] 11-21-2022 09:01-0400 Systolic blood pressure 148 mm[Hg] Dr. Esme Gomez Work Phone: [facility] 05-31-2022 14:27-0400 Body height 165.[address] Ab Dumont Work Phone: [facility] 05-20-2022 09:00-0500 Body height 165.[address] Ab Dumont Work Phone: [facility] 05-20-2022 09:00-0500 Body mass index (BMI) [Ratio] 23.5 kg/m2 Dr. Ab Dumont Work Phone: [facility] 05-20-2022 09:00-0500 Body temperature 97.6 [degF] Dr. Ab Dumont Work Phone: [facility] 05-20-2022 09:00-0500 Body weight 64.[address] Ab Dumont Work Phone: [facility] 05-20-2022 09:00-0500 Diastolic blood pressure 86 mm[Hg] Dr. Ab Dumont Work Phone: [facility] 05-20-2022 09:00-0500 Heart rate 73 /min Dr. Ab Dumont Work Phone: [facility] 05-20-2022 09:00-0500 Respiratory rate 18 /min Dr. Ab Dumont Work Phone: [facility] 05-20-2022 09:00-0500 SaO2% (BldA) [Mass fraction] 99 % Dr. Ab Dumont Work Phone: [facility] 05-20-2022 09:00-0500 Systolic blood pressure 122 mm[Hg] Dr. Ab Dumont Work Phone: [facility] 07-23-2021 08:48-0400 Body height 165.[address] Ab Dumont Work Phone: [facility] Work Phone: 07-23-2021 08:48-0400 Body mass index (BMI) [Ratio] 22.4 kg/m2 Dr. Ab Dumont Work Phone: [facility] Work Phone: 07-23-2021 08:48-0400 Body weight 61.[address] Ab Dumont Work Phone: [facility] Work Phone: 07-23-2021 08:48-0400 Diastolic blood pressure 87 mm[Hg] Dr. Ab Dumont Work Phone: [facility] Work Phone: 07-23-2021 08:48-0400 Heart rate 76 /min Dr. Ab Dumont Work Phone: [facility] Work Phone: 07-23-2021 08:48-0400 Respiratory rate 20 /min Dr. Ab Dumont Work Phone: [facility] Work Phone: 07-23-2021 08:48-0400 SaO2% (BldA) [Mass fraction] 99 % Dr. Ab Dumont Work Phone: [facility] Work Phone: 07-23-2021 08:48-0400 Systolic blood pressure 149 mm[Hg] Dr. Ab Dumont Work Phone: [facility] Work Phone: Encounters Encounter Date Encounter Type Care Provider Facility Start: 01-06-2025 End: 01-06-2025 ambulatory [facility] Facility:[facility] Start: 12-24-2024 End: 12-24-[address] Esme Gomez MD -[facility] [place] Work Phone: Start: 12-24-2024 End: 12-24-[address] Esme Gomez MD Work Phone: -[facility] Start: 12-24-2024 End: 12-24-2024 ambulatory Esme Gomez Facility:[facility] Start: 10-23-2024 End: 10-23-[address] Esme Gomez MD -[place] [facility] Work Phone: Start: 10-23-2024 End: 10-23-[address] 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 Esme Gomez MD Work Phone: [facility] Work Phone: Start: 06-04-2024 End: 06-04-[address] Esme Gomez MD -Outpatient Bone Densitometry Work Phone: Start: 06-04-2024 End: 06-04-2024 ambulatory Esme Gomez Facility:[facility] Start: 04-25-2024 End: 04-25-2024 Refill Jaleesa Soni MD Work Phone: Ophthalmology Comment on above: Refill Request Start: 04-22-2024 End: 04-22-[address] Esme Gomez MD -[facility] Work Phone: Start: 04-22-2024 End: 04-22-2024 Refill Jaleesa Soni MD Work Phone: Ophthalmology Comment on above: Refill Request Start: 04-22-2024 End: 04-22-2024 ambulatory Esme Gomez Facility:[facility] Start: 04-19-2024 End: 04-22-2024 ambulatory Geovani Callejas MD Work Phone: Ophthalmology Comment on above: New pharmacy plan fo r my prescription Start: 02-19-2024 End: 02-19-2024 Patient encounter procedure Raina PATRICK -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; 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; 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; Primary open angle glaucoma (POAG) of right eye, mild stage Start: 08-02-2023 End: 08-02-2023 Patient encounter procedure Jaleesa Soni MD Work Phone: Ophthalmology Comment on above: Primary open angle g laucoma (POAG) of right eye, mild stage (Primary Dx); 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 Esme oGmez Work Phone: [facility] Work Phone: Start: 06-02-2023 End: 06-02-[address] Esme Gomez Work Phone: [facility]-Outpatient Breast Imaging Work Phone: Start: 05-31-2023 End: 05-31-[address] Esme Gomez Work Phone: [facility] Work Phone: Start: 05-31-2023 End: 05-31-[address] Esme Gomez Work Phone: [facility] Internal Medicine Work Phone: Start: 05-28-2023 End: 05-28-2023 Emergency department patient visit Dr. Esme Gomez Work Phone: [facility]-Emergency Department Work Phone: Start: 02-24-2023 End: 02-24-[address] Esme Gomez Work Phone: [facility] Work Phone: Start: 02-24-2023 End: 02-24-[address] Esme Gomez Work Phone: [facility] Internal Medicine Work Phone: Start: 02-17-2023 End: 02-17-[address] Esme Gomez Work Phone: [facility] Work Phone: Start: 02-17-2023 End: 02-17-[address] Esme Gomez Work Phone: [facility]-Laboratory, Specimen Work Phone: Start: 02-17-2023 End: 02-17-[address] Esme Gomez Work Phone: [facility] Work Phone: Start: 01-10-2023 End: 01-10-[address] 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 Esme Gomez Work Phone: [facility] Internal Medicine Work Phone: Start: 11-21-[address] Javad Gomez Work Phone: [facility] Start: 11-21-2022 End: 11-21-[address] Esme Gomez Work Phone: [facility] Work Phone: Start: 11-21-2022 End: 11-21-[address] Esme Gomez Work Phone: [facility]-Laboratory, BIM Start: 11-21-2022 End: 11-21-2022 Encounter for general adult medical examination without abnormal findings Dr. Esme Gomez Work Phone: [facility] Start: 11-21-2022 End: 11-21-[address] 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 (Primary Dx); Lattice degeneration of retina, bilateral; Choroidal neovascularization of left eye; Primary open angle glaucoma (POAG) of right eye, mild stage; 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 Ab Dumont Work Phone: [facility] Work Phone: Start: 05-31-2022 End: 05-31-[address] Ab Dumont Work Phone: [facility]-Outpatient Breast Imaging Start: 05-20-2022 End: 05-20-[address] Ab Dumont Work Phone: [facility] Work Phone: Start: 05-20-2022 End: 05-20-[address] Ab Dumont Work Phone: [facility]-Laboratory, [facility] Start: 05-20-[address] Lexie Dumont Work Phone: [facility] Start: 05-20-2022 Non-patient / Non-visit Dr. Magdaleno Dumont Work Phone: [facility] Internal Medicine Start: 05-20-2022 End: 05-20-2022 Encounter for general adult medical examination without abnormal findings Dr. Ab Dumont Work Phone: [facility] Start: 05-20-2022 End: 05-20-[address] 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 Magdaleno Dumont Work Phone: [facility] Start: 10-05-2021 End: 10-05-[address] Ab Dumont Work Phone: [facility]-Cardiovascula r Services Start: 07-23-2021 End: 07-23-[address] Ab Dumont Work Phone: [facility] Start: 07-13-2021 Non-patient / Non-visit Dr. Magdaleno Dumont Work Phone: [facility] Start: 07-06-2021 End: 07-06-2021 Patient encounter procedure Rivera Mason MD Work Phone: Ophthalmology Comment on above: Postop check (Primar y Dx) Start: 07-06-2021 End: 07-06-2021 Patient encounter procedure [facility] Comment on above: Presbyopia (Primary Dx) Start: 06-25-2021 Refill Jaleesa Soni MD Work Phone: Ophthalmology Comment on above: Refill Request (Dwaine lol Maleate 0.5%) Start: 06-21-2021 End: 06-21-[address] Ab Dumont Work Phone: [facility]-Laboratory, Phy Office 3rd Flr Start: 04-29-2021 End: 04-29-[address] Ab Dumont Work Phone: [facility]-Outpatient Breast Imaging Start: 03-03-2021 End: 03-03-[address] Ab Dumont Work Phone: [facility] Start: 05-21-2020 End: 05-21-2020 Patient encounter procedure [facility] Start: 04-30-2020 End: 04-30-2020 Patient encounter procedure [facility] Procedures Date Procedure Procedure Detail Performing Clinician Start: 09-11-2024 Visual field xm uni/ bi w/interp extended exam Jaleesa Soni MD Work Phone: Start: 08-06-2024 Computerized ophthal yobani imaging retina Geovani Callejas MD Work Phone: Start: 06-04-2024 Screening mammography Mauricio Gomez MD Work Phone: Start: 06-04-2024 Dual energy X-ray absorptiometry Dr. Esme Gomez MD Work Phone: Start: 02-05-2024 Computerized ophthal yobani imaging retina Tanner Ashley PA-C Work Phone: Start: 08-02-2023 Visual field xm uni/ bi w/interp extended exam Jaleesa Soni MD Work Phone: Start: 08-01-2023 Computerized ophthal yobani imaging retina Geovani Callejas MD Work Phone: Start: 06-02-2023 Screening mammography Mauricio Gomez Work Phone: Start: 05-28-2023 Diagnostic radiograp hy of finger Dr. Esme Gomez Work Phone: Start: 07-19-2022 Computerized ophthal yobani imaging retina Tanner Ashley PA-C Work Phone: Start: 06-14-2022 Visual field xm uni/ bi w/interp extended exam Jaleesa Soni MD Work Phone: Start: 05-31-2022 Dual energy X-ray absorptiometry Dr. Ab Dumont Work Phone: Start: 05-31-2022 Screening mammography Mauricio Dumont Work Phone: Start: 12-27-2021 End: 12-27-2021 Computerized ophthalmic imaging retina Tanner Ashley PA-C Work Phone: Start: 04-29-2021 Screening mammography Mauricio Dumont Work Phone: Plan of Treatment Date Care Activity Detail Author Start: 01-03-2026 Urine microalbumin profile DTaP,Tdap,Td Vaccine (2 - Td or Tdap) [facility] Start: 09-26-2025 End: 03-05-2026 VISUAL FIELD 24-2 OU (BOTH EYES) VISUAL FIELD 24-2 OU (BOTH EYES) [facility] Imaging Routine Primary open angle glaucoma (POAG) of right eye, 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 Expected: 09/26/2025, Expires: 03/05/2026 [facility] Work Phone: Comment on above: Expected: 09/26/2025, Expires: Start: 08-21-2025 End: 01-28-2026 OCT MACULA CIRRUS OU (BOTH EYES) OCT MACULA CIRRUS OU (BOTH EYES) [facility] Imaging Routine 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, bilateral Glaucoma suspect of left eye 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 Primary open angle glaucoma (POAG) of right eye, mild stage Expected: 08/21/2025, Expires: 01/28/2026 [facility] Work Phone: Comment on above: Expected: 08/21/2025, Expires: Start: 02-11-2025 End: 02-11-2025 Patient encounter procedure 02/11/2025 12:45 PM EST Office Visit [facility] [address] [place] [address] Tanner Ashley PA-C [address] [place] [address] Diagnostics[facility] [address] [address] Lisa Ashley PA-C in 6 months Ophthalmology Comment on above: Lisa Ashley PA-C in 6 months Start: 11-11-2024 Influenza vaccination Influenza Vaccine (#1) [facility] Start: 09-11-2024 End: 09-11-2024 Patient encounter procedure 09/11/2024 8:30 AM EDT Office Visit [facility] [address] [place] [address] Jaleesa Soni MD [address] [place] [address] [id number] 1 year follow up Ophthalmology Comment on above: 1 year follow up Start: 08-21-2024 End: 08-21-2024 Patient encounter procedure 08/21/2024 8:00 AM EDT Office Visit [facility] [address] [address] Jaleesa Soni MD [address] [place], [place] [id number] 1 year follow up Ophthalmology Comment on above: 1 year follow up Start: 08-16-2024 End: 01-23-2025 VISUAL FIELD 24-2 OU (BOTH EYES) VISUAL FIELD 24-2 OU (BOTH EYES) [facility] Imaging Routine Primary open angle glaucoma (POAG) of right eye, 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 Expected: 08/16/2024, Expires: 01/23/2025 [facility] Work Phone: Comment on above: Expected: 08/16/2024, Expires: Start: 08-15-2024 End: 01-22-2025 OCT MACULA CIRRUS OU (BOTH EYES) OCT MACULA CIRRUS OU (BOTH EYES) [facility] Imaging Routine 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, bilateral Glaucoma suspect of left eye 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 Primary open angle glaucoma (POAG) of right eye, mild stage Expected: 08/15/2024, Expires: 01/22/2025 [facility] Work Phone: Comment on above: Expected: 08/15/2024, Expires: Start: 08-07-2024 End: 08-07-2024 Patient encounter procedure 08/07/2024 9:30 AM EDT Office Visit [facility] [address] [address] Jaleesa Soni MD [address] [address] 1 year follow up Ophthalmology Comment on above: 1 year follow up Start: 08-06-2024 End: 08-06-2024 Patient encounter procedure 08/06/2024 1:30 PM EDT Office Visit [facility] [address] [address] Geovani Callejas MD [address] [place] [address] britta 6 month Ophthalmology Comment on above: britta 6 month Start: 06-25-2024 Covid-19 Vaccine ( season) Covid-19 Vaccine ( season) [facility] Start: 03-13-2024 Advance Directive Discussion Advance Directive Discussion [facility] Start: 02-05-2024 End: 02-05-2024 Patient encounter procedure 02/05/2024 12:45 PM EST Office Visit [facility] Ophthalmology [address] [address] Tanner Ashley PA-C [address] [place] [address] Lisa Ashley PA-C in 6 months Ophthalmology Comment on above: Lisa Ashley PA-C in 6 months Start: 01-05-2024 End: 06-13-2024 VISUAL FIELD 24-2 OU (BOTH EYES) VISUAL FIELD 24-2 OU (BOTH EYES) [facility] Imaging Routine Primary open angle glaucoma (POAG) of right eye, 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 Expected: 01/05/2024, Expires: 06/13/2024 [facility] Work Phone: Comment on above: Expected: 01/05/2024, Expires: Start: 08-03-2023 End: 01-10-2024 OCT MACULA CIRRUS OU (BOTH EYES) OCT MACULA CIRRUS OU (BOTH EYES) [facility] Imaging Routine Lattice degeneration of retina, 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 suspect of left eye 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 Ophthalmology Comment on above: Return in about 6 months (around 06/22/19) for VF . 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 retina, bilateral Glaucoma suspect of both eyes Expected: 01/11/2023, Expires: 06/20/2023 [facility] Work Phone: Comment on above: Expected: 01/11/2023, Expires: Start: 11-11-2022 Covid-19 Vaccine ( season) Covid-19 Vaccine () [facility] Start: 11-11-2022 Influenza vaccination INFLUENZA (Season Ended) [facility] Start: 05-20-2022 Patient referral [facility] Work Phone: Start: 03-13-2022 ADVANCE DIRECTIVE DISCUSSION ADVANCE DIRECTIVE DISCUSSION [facility] Start: 03-13-2022 DEPRESSION ASSESSMENT DEPRESSION ASSESSMENT [facility] Start: 11-11-2021 Influenza vaccination INFLUENZA (#1) [facility] Start: 09-06-2021 COVID-19 VACCINE (5 - Booster for Pfizer series) COVID-19 VACCINE (5 - Booster for Pfizer series) [facility] Start: 03-13-2021 ADVANCE DIRECTIVE DISCUSSION ADVANCE DIRECTIVE DISCUSSION [facility] Start: 03-13-2021 DEPRESSION ASSESSMENT DEPRESSION ASSESSMENT [facility] Start: 02-10-2021 COVID-19 VACCINE (4 - Booster for Pfizer series) COVID-19 VACCINE (4 - Booster for Pfizer series) [facility] Start: 12-28-2018 Shingrix Vaccine (2 of 2) Shingrix Vaccine (2 of 2) [facility] Start: 09-01-2018 Pneumococcal Vaccine: 50+ (2 of 2 - PCV) Pneumococcal Vaccine: 50+ (2 of 2 - PCV) [facility] Start: 09-01-2018 Pneumococcal Vaccine: 65+ (2 of 2 - PCV) Pneumococcal Vaccine: 65+ (2 of 2 - PCV) [facility] Start: 2017 BONE DENSITY BONE DENSITY [facility] Start: 2017 Bone Density Screening Bone Density Screening [facility] Start: 2017 Pneumococcal Vaccine: 65+ (1 - PCV) Pneumococcal Vaccine: 65+ (1 - PCV) [facility] Start: 2017 PNEUMOCOCCAL: 65+ (1 - PCV) PNEUMOCOCCAL: 65+ (1 - PCV) [facility] Start: 2017 PNEUMOVAX AGE 65 AND OVER WITH 5YR LOOKBACK (#1) PNEUMOVAX AGE 65 AND OVER WITH 5YR LOOKBACK (#1) [facility] Start: 2017 Screening for osteoporosis Bone Density Screening [facility] Start: 05-11-2017 Medicare Annual Wellness Visit Medicare Annual Wellness Visit [facility] Start: 2002 SHINGRIX VACCINE (1 of 2) SHINGRIX VACCINE (1 of 2) [facility] Start: 1997 COLOGUARD (FIT-DNA) COLOGUARD (FIT-DNA) [facility] Start: 1997 Colonoscopy COLONOSCOPY [facility] Start: 1997 COLORECTAL CANCER SCREENING COLORECTAL CANCER SCREENING [facility] Start: [address] COLONOGRAPHY [facility] Start: 1997 DIABETES SCREEN DIABETES SCREEN [facility] Start: 1997 Diabetes Screening Diabetes Screening [facility] Start: 1997 FECAL OCCULT BLOOD FECAL OCCULT BLOOD [facility] Start: 1997 Lipid 1996 panel - Serum or Plasma Lipid Screening [facility] Start: 1997 Lipid panel Lipid Screening [facility] Start: 1997 LIPID SCREEN LIPID SCREEN [facility] Start: 1997 Screening for malignant neoplasm of colon [facility] Start: 1997 SIGMOIDOSCOPY SIGMOIDOSCOPY [facility] Start: 1992 Mammography [facility] Start: 1992 Screening for malignant neoplasm of breast Mammogram Screening [facility] Start: 05-17-1971 Urine microalbumin profile [facility] Start: 1970 ANNUAL PCP TEAM CHRONIC DISEASE VISIT ANNUAL PCP TEAM CHRONIC DISEASE VISIT [facility] Start: 1970 Anxiety Screening Anxiety Screening [facility] Start: 1970 BP CONTROLLED (<130/80) BP CONTROLLED (<130/80) [facility] Start: 1970 Depression Screening Depression Screening [facility] Start: 1970 HEPATITIS C SCREENING HEPATITIS C SCREENING [facility] Start: 1970 Hepatitis C screening Hepatitis C Screening [facility] Start: 1964 Adult depression screening assessment DEPRESSION SCREENING [facility] Comprehensive metabolic 2000 panel - Serum or Plasma [facility] DXA Bone [Mass/Area] Bone density [facility] MG Breast - bilatera l Screening [facility] MG Breast - bilatera l Screening [facility] Patient Education ED Cellulitis [facility] Work Phone: Patient referral [facility] Work Phone: [facility] Immunizations Immunization Date Immunization Notes Care Provider Libby olmos 12-26-2023 influenza virus vacc ine, unspecified formulation Jaleesa Soni MD Work Phone: [facility] Payers Date Payer Category Payer Self-pay [id number] 2017 Medicare MEDICARE MEDICAR E A AND B [id number] 2017-Present [phone] [place] [address] Medicare [id number] 2017 Medicare [id number] 2017 Private Health Insurance [employer] Member Subscriber Plan / Payer (Effective 2017-Present) Name: Hal Mari Relation to Subscriber: Self Name: Hal Mari Payer ID: Not on file Group ID: Not on file Type: Indemnity Address: [facility] [address] [place], [place] [id number] 2017 Unknown PHYSICIANS MUTUA L PHYSICIANS M[employer]UAL SUPPLEMENT [id number] 2017-Present [phone] [facility] [address] [place], [place] Indemnity [id number] 2017 Unknown PHYSICIANS MUTUA L PHYSICIANS M[employer]UAL SUPPLEMENT [id number] 2017-Present [phone] [facility] [address] [place] [address] Indemnity [id number] 2017 Medicare [id number] 2017 Unknown [id number] Private Health Insurance [facility] [id number] Unknown [id number] Unknown [id number] Unknown [id number] Unknown [id number] Unknown [id number] Unknown [id number] Unknown [id number] Social History Date Type Detail Facility Tobacco smoking stat us COIS Unknown if ever smoked [facility] Work Phone: Start: 1950 Sex Assigned At Female C [facility] Start: 03-19-2019 End: 02-19-2024 Tobacco smoking status NHIS Never smoked tobacco [facility] Start: 03-19-2019 End: 12-21-2022 Tobacco use and exposure Smokeless tobacco non-user [facility] Start: 06-15-2021 End: 09-11-2024 Alcohol intake Current drinker of alcohol (finding) [facility] Start: 06-15-2021 End: 01-23-2023 Alcohol intake [facility] Start: 06-05-2021 End: 06-15-2021 Exposure to SARS-CoV-2 (event) Not sure [facility] Start: 05-20-2022 End: 05-31-2023 Tobacco smoking status COIS Unknown if ever smoked [facility] Start: 12-21-2022 End: 01-23-2023 Tobacco use panel [facility] National Score (1-10 0), lower number is lower risk 70 [facility] Start: 11-12-2019 Gender identity Identifies as female gender (finding) [facility] Start: 11-12-2019 Sexual orientation Heterosexual (fin ding) [facility] Start: 06-10-2024 Sex Female (finding) [facility] Clinical Notes 03-19-2019 to 01-06-2025 Note Date & Type Note Facility 01-06-2025 Note HNO ID: [id number] Author: PRAVEEN ROQUE OD Service: ? 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 Prog/high myopia c presbyopia OU -Pt ed, srx dispensed. Monitor prn 2. RGP wearer OU -stable fit. Adjusted power and add thp -pt given copy of script, wants to order outside [facility] -informed pt to check on warranty prior to ordering -D/c lenses and rtc w/any pain,redness or vision change I have confirmed and edited as necessary the relevant HPI, ophthalmic history, ROS, and the neuro exam findings as obtained by others. I have seen and examined Hal Mari. I have discussed the case and the management of this patient's care with the Resident/Fellow, if applicable. I also have reviewed and agree with the assessment and plan as stated above and agree with all of its relevant components. [facility] 12-24-2024 Progress note [facility] 10-23-2024 Evaluation note Diagnosis Onset Date Resolution Anxiety chronic October 23 12:53pm Essential hypertension chronic [facility] 2024 12:53pm Insomnia chronic October 23 12:53pm [facility] Work Phone: 1(324) 187-923407-02-2025 NoteDate of Procedure 09/11/2024. 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 Start time: 8:53 AM. Stop time: 9:07 AM. She wore her contacts for the test . Notes OD almost normal, stable OS worse sup cecocentral vs [id number] NoteHNO ID: [id number] Author: JALEESA SONI MD Service: ? Author Type: Physician Type: Progress Notes Filed: 09/11/2024 10:03 Note Text: Tmax: 25, 28; Pachy: 513, 518 Lasers and Surgeries: OD: - OS: - Ocular Medication Intol and Non-efficacy: - Referred by Britta Now on Timolol OU qam (04/2019 for IOP 20, 29) Latanoprost qam OU (06/2022 19,23 +DH OD) OHTN OS POAG mild OD => dx 06/2022 based on DH -HVF 09/2024 (NOT in contacts) OD almost normal, stable OS worse sup cecocentral vs paracentral -OCT: too myopic OU -Baseline photos 04/2019 -04/2019: I don't think there's glaucomatous optic neuropathy but OHTN, high myopia, FamHx (mom) and thin CCT put her at substantial risk of glaucoma OD -+DH OD 06/2022 @ 19mmHg => suggestive of early POAG -ideal IOP 16 or less OD -IOP ok, VF normal and stable today OS -worse paracentral VF defect -has h/o CNVM stable and GA -stable dec VA -VF change is almost certainly retinal not glaucoma Stay on same meds 12 months refract OU, BAT OD, HVF, dilate Cortical cataract OU -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 I have seen and examined Hal Mari. I have discussed the case and the management of this patient's care with the Resident/Fellow, if applicable. I also have reviewed, edited as necessary, and agree with the assessment and plan as stated above and agree with all of its relevant components.[facility]07-02-2025 History of Present illness Narrative* Jaleesa Soni MD - 09/11/2024 9:53 AM EDT Tmax: 25, 28; Pachy: 513, 518 Lasers and Surgeries: OD: - OS: - Ocular Medication Intol and Non-efficacy: - Referred by Britta Now on Timolol OU qam (04/2019 for IOP 20, 29) Latanoprost qam OU (06/2022 19,23 +DH OD) OHTN OS POAG mild OD => dx 06/2022 based on DH -HVF 09/2024 (NOT in contacts) OD almost normal, stable OS worse sup cecocentral vs paracentral -OCT: too myopic OU -Baseline photos 04/2019 -04/2019: I don't think there's glaucomatous optic neuropathy but OHTN, high myopia, FamHx (mom) andthin CCT put her at substantial risk of glaucoma OD -+DH OD 06/2022 @ 19mmHg => suggestive of early POAG -ideal IOP 16 or less OD -IOP ok, VF normal and stable today OS -worse paracentral VF defect -has h/o CNVM stable and GA -stable dec VA -VF change is almost certainly retinal not glaucoma Stay on same meds 12 months refract OU, BAT OD, HVF, dilate Cortical cataract OU -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 I have seen and examined Hal Mari. I have discussed the case and the management of this patient's care with the Resident/Fellow, if applicable. I also have reviewed, edited as necessary, and agree with the assessment and plan as stated above and agree with all ofits relevant components. [facility] NoteDate of Procedure 08/06/2024. OCT Macula Interpretation Right Eye Findings include Intraretinal fluid, Epiretinal membrane, Vitreomacular traction. Left Eye Findings include Intraretinal fluid, Epiretinal membrane, Vitreomacular traction, IS/OS junction, Atrophy. Interval Change Right Eye Stable. Left Eye Stable.[id number] NoteHNO ID: [id number] Author: GEOVANI CALLEJAS MD Service: ? Author Type: Physician Type: Progress Notes Filed: 08/06/2024 15:03 Note Text: The documentation for the note below was completed in part by Violeta Centeno acting as a scribe for Geovani Callejas MD. 08/06/2024 1:50 PM. Scribe Attestation: By signing my name below, I, Violeta Centeno, attest that the documentation in part for the note below and the encounter was completed in part by Violeta Centeno acting as a scribe for Geovani Callejas MD. Electronically Signed: Lisa Rosario. August 06, 2024 1:50 PM. All problems with bold in text below addressed at this visit with patient 1. 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 Cataracts, Both eyes - Remains stable - Follow 3. Early POAG OD, OTHN OS - +Fam history with Mother (managed on gtts only) - Diagnosed when new disc heme noted on exam OD 06/2022 - Reviewed Dr. Soni note and patient to maintain use of timolol qam OU, latanoporst qam OU - IOP 17/18 - Follows with Dr. Soni - Continue current drop regimen. 4. Lattice degeneration OU (both eyes) - Instructed pt of return to office precautions and patient will call with any changes in vision - Exam - Follow 5. 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 Mason - Remains stable - Follow 6. Ocular irritation OU (both eyes) -Use artifical tears QID (4 x a day) -Can use OTC Pataday I personally performed the services described in this [...] by others. I have seen and examined Hal Mari. I have discussed the case and the management of this patient's care with the Resident/Fellow, if applicable. I also have reviewed and agree with the assessment and plan as stated above and agree with all of its relevant components.[facility]05-27-2025 History of Present illness Narrative* Geovani Callejas MD - 08/06/2024 1:50 PM EDT The documentation for the note below was completed in part by Violeta Centeno acting as a scribefor Geovani Callejas MD. 08/06/2024 1:50 PM. Scribe Attestation: By signing my name below, I, Violeta Centeno, attest that the documentation in part for the note below and the encounter was completed in part by Violeta Centeno acting as ascribe for Geovani Callejas MD. Electronically Signed: Lisa Rosario. August 06, 2024 1:50 PM. All problems with bold in text below addressed at this visit with patient 1. 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 Cataracts, Both eyes - Remains stable - Follow 3. Early POAG OD, OTHN OS - +Fam history with Mother (managed on gtts only) - Diagnosed when new disc heme noted on exam OD 06/2022 - Reviewed Dr. Soni note and patient to maintain use of timolol qam OU, latanoporst qam OU - IOP 17/18 - Follows with Dr. Soni - Continue current drop regimen. 4. Lattice degeneration OU (both eyes) - Instructed pt of return to office precautions and patient will call with any changes in vision - Exam - Follow 5. 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 Mason - Remains stable - Follow 6. Ocular irritation OU (both eyes) -Use artifical tears QID (4 x a day) -Can use OTC Pataday I personally performed the services described in this documentation. All medical record entries made by the scribe were at my direction and in my presence. I have reviewed the chart and discharge instructions (if applicable) and agree that the record reflects my personal performance and is accurateand complete. I have confirmed and edited as necessary the relevant ophthalmic history, ROS, and the neuro exam findings as obtained by others. I have seen and examined Hal Mari. I have discussed the case and the management of this patient's care with the Resident/Fellow, if applicable. I also have reviewed and agree with the assessment and plan as stated above and agree with all of its relevant components. [facility] Telephone encounter Note * Telephone Encounter - Jesusita Griggs - 04/25/2024 3:27 PM EST Jaleesa Soni MD filed at 08/02/2023 11:02 AM Status: Signed Tmax: 25, 28; Pachy: 513, 518 Lasers and Surgeries: OD:- OS:- Ocular Medication Intol and Non-efficacy: - Referred by Britta Now on Timolol OU qam (04/2019 for IOP 20, 29) Latanoprost qam OU (06/2022 19,23 +DH OD) OHTN OS POAG mild OD => new dx 06/2022 based on DH -HVF 07/2023 (NOT in contacts) OD shallow central defect, nearly normal and better than typical OS shallow inf paracentral arc, variable but non progressive -OCT: too myopic OU -Baseline photos 04/2019 -04/2019: I don't think there's glaucomatous optic neuropathy but OHTN, high myopia, FamHx (mom) andthin CCT put her at substantial risk of glaucoma -+DH OD 06/2022 @ 19mmHg => suggestive of early POAG -wears RGP's real time trader -ideal IOP 16 or less OD -IOP controlled OU and VF stable -she sees Britta in 6 months 12 months refract OU, BAT OD, HVF, dilate Cortical cataract OU -OD BCVA 20/30, glare 20/60 August 02, 2023 -she is happy with her vision Extreme myopia, myopic degeneration, lattice OU -sees Britta/Joshua -OCT macula 03/2019 (per Britta) stable schisis OU, -H/O CNVM OS post Avastin and Eylea, now quiescent since 2014 -central atrophy OS apparent on VF OS Ptosis OU -affects VS ATTESTATION: By signing my name below, I, Nayeli Rodriguez, attest that this documentation [facility] Work Phone: 1(566) 218-775102-13-2025 Miscellaneous Notes* Telephone Encounter - Jesusita Griggs - 04/25/2024 3:27 PM EST Jaleesa Soni MD filed at 08/02/2023 11:02 AM Status: Signed Tmax: 25, 28; Pachy: 513, 518 Lasers and Surgeries: OD:- OS:- Ocular Medication Intol and Non-efficacy: - Referred by Britta Now on Timolol OU qam (04/2019 for IOP 20, 29) Latanoprost qam OU (06/2022 19,23 +DH OD) OHTN OS POAG mild OD => new dx 06/2022 based on DH -HVF 07/2023 (NOT in contacts) OD shallow central defect, nearly normal and better than typical OS shallow inf paracentral arc, variable but non progressive -OCT: too myopic OU -Baseline photos 04/2019 -04/2019: I don't think there's glaucomatous optic neuropathy but OHTN, high myopia, FamHx (mom) andthin CCT put her at substantial risk of glaucoma -+DH OD 06/2022 @ 19mmHg => suggestive of early POAG -wears RGP's real time trader -ideal IOP 16 or less OD -IOP controlled OU and VF stable -she sees Britta in 6 months 12 months refract OU, BAT OD, HVF, dilate Cortical cataract OU -OD BCVA 20/30, glare 20/60 August 02, 2023 -she is happy with her vision Extreme myopia, myopic degeneration, lattice OU -sees Britta/Joshua -OCT macula 03/2019 (per Britta) stable schisis OU, -H/O CNVM OS post Avastin and Eylea, now quiescent since 2014 -central atrophy OS apparent on VF OS Ptosis OU -affects VS ATTESTATION: By signing my name below, I, Nayeli Rodriguez, attest that this documentation [facility] Telephone encounter Note * Telephone Encounter - Jesusita Griggs - 04/22/2024 9:50 AM EST Jaleesa Soni MD filed at 08/02/2023 11:02 AM Status: Signed Tmax: 25, 28; Pachy: 513, 518 Lasers and Surgeries: OD:- OS:- Ocular Medication Intol and Non-efficacy: - Referred by Britta Now on Timolol OU qam (04/2019 for IOP 20, 29) Latanoprost qam OU (06/2022 19,23 +DH OD) OHTN OS POAG mild OD => new dx 06/2022 based on DH -HVF 07/2023 (NOT in contacts) OD shallow central defect, nearly normal and better than typical OS shallow inf paracentral arc, variable but non progressive -OCT: too myopic OU -Baseline photos 04/2019 -04/2019: I don't think there's glaucomatous optic neuropathy but OHTN, high myopia, FamHx (mom) andthin CCT put her at substantial risk of glaucoma -+DH OD 06/2022 @ 19mmHg => suggestive of early POAG -wears RGP's real time trader -ideal IOP 16 or less OD -IOP controlled OU and VF stable -she sees Britta in 6 months 12 months refract OU, BAT OD, HVF, dilate Cortical cataract OU -OD BCVA 20/30, glare 20/60 August 02, 2023 -she is happy with her vision Extreme myopia, myopic degeneration, lattice OU -sees Britta/Joshua -OCT macula 03/2019 (per Britta) stable schisis OU, -H/O CNVM OS post Avastin and Eylea, now quiescent since 2014 -central atrophy OS apparent on VF OS Ptosis OU -affects VS [facility] Work Phone: 1(147) 369-450302-10-2025 Miscellaneous Notes* Telephone Encounter - Jesusita Griggs - 04/22/2024 9:50 AM EST Jaleesa Soni MD filed at 08/02/2023 11:02 AM Status: Signed Tmax: 25, 28; Pachy: 513, 518 Lasers and Surgeries: OD:- OS:- Ocular Medication Intol and Non-efficacy: - Referred by Britta Now on Timolol OU qam (04/2019 for IOP 20, 29) Latanoprost qam OU (06/2022 19,23 +DH OD) OHTN OS POAG mild OD => new dx 06/2022 based on DH -HVF 07/2023 (NOT in contacts) OD shallow central defect, nearly normal and better than typical OS shallow inf paracentral arc, variable but non progressive -OCT: too myopic OU -Baseline photos 04/2019 -04/2019: I don't think there's glaucomatous optic neuropathy but OHTN, high myopia, FamHx (mom) andthin CCT put her at substantial risk of glaucoma -+DH OD 06/2022 @ 19mmHg => suggestive of early POAG -wears RGP's real time trader -ideal IOP 16 or less OD -IOP controlled OU and VF stable -she sees Britta in 6 months 12 months refract OU, BAT OD, HVF, dilate Cortical cataract OU -OD BCVA 20/30, glare 20/60 August 02, 2023 -she is happy with her vision Extreme myopia, myopic degeneration, lattice OU -sees Britta/Joshua -OCT macula 03/2019 (per Britta) stable schisis OU, -H/O CNVM OS post Avastin and Eylea, now quiescent since 2014 -central atrophy OS apparent on VF OS Ptosis OU -affects VS documented in this encounter[facility] Evaluation note* Diagnosis Onset Date Resolution Status Admit Date Encounter for routine gynecological examination noneactive Decemb er 2023 8:39am Anxiety chronic April 22, 2024 12:53pm Essential hypertension chronic Fe bruary 2024 12:53pm Insomnia chronic April 22, 2024 12:53pm Osteopenia chronic April 22, 2024 12:53pm [facility] Work Phone: 1(260) 858-358411-25-2024 NoteDate of Procedure 02/05/2024. 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 Interpretation Right Eye Abnormal foveal contour. Findings include Intraretinal fluid, Epiretinal membrane, Atrophy. Left Eye Abnormal foveal contour. Findings include Intraretinal fluid, Epiretinal membrane, Atrophy. Interval Change Right Eye Stable. Left Eye Stable.[id number] History of Present illness Narrative* Tanner Ashley PA-C - 02/05/2024 12:45 PM EST All problems with bold in text below addressed at this visit with patient 1. 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 Callejas in 6 months 2. Cataracts, Both eyes - Stable, monitor 3. Early POAG OD, OTHN OS - +Fam history with Mother (managed on gtts only) - Diagnosed when new disc heme noted on exam OD 06/2022 - Reviewed Dr. Soni note and patient to continue timolol qam OU, latanoporst qam OU - IOP - Follows with Dr. Soni 4. Lattice degeneration OU (both eyes) - Emphasized return to office precautions and patient will call with any changes in vision - Remains stable on exam, continue to monitor 5. 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 Marlon Chi, monitor I have seen and examined this patient. I have confirmed and edited as necessary the relevant HPI, ophthalmic history, medications, ROS, and the neuro [...] if new symptoms develop. documented in this encounterSub[facility]11-[facility]2024 NoteHNO ID: [id number] Author: TANNER ASHLEY PA-C Service: ? Author Type: Physician Hard Candy Spinner Type: Progress Notes Filed: 02/05/2024 13:43 Note Text: All problems with bold in text below addressed at this visit with patient 1. 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 Callejas in 6 months 2. Cataracts, Both eyes - Stable, monitor 3. Early POAG OD, OTHN OS - +Fam history with Mother (managed on gtts only) - Diagnosed when new disc heme noted on exam OD 06/2022 - Reviewed Dr. Soni note and patient to continue timolol qam OU, latanoporst qam OU - IOP - Follows with Dr. Soni 4. Lattice degeneration OU (both eyes) - Emphasized return to office precautions and patient will call with any changes in vision - Remains stable on exam, continue to monitor 5. 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 Marlon Chi, monitor I have seen and examined this patient. I have confirmed and edited as necessary the relevant HPI, ophthalmic history, medications, ROS, and the neuro [...] noted below, or sooner if new symptoms develop.[facility]05-22-2024 NoteDate of Procedure 08/02/2023. 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 Start time: 10:12 AM. Stop time: 10:32 AM. PT is NOT allergic to adhesive bandages. . Notes OD shallow central defect, nearly normal and better than typical OS shallow inf paracentral arc, variable but non [id number] History of Present illness Narrative* Jaleesa Soni MD - 08/02/2023 10:40 AM EDT Tmax: 25, 28; Pachy: 513, 518 Lasers and Surgeries: OD: - OS: - Ocular Medication Intol and Non-efficacy: - Referred by Britta Now on Timolol OU qam (04/2019 for IOP 20, 29) Latanoprost qam OU (06/2022 19,23 +DH OD) OHTN OS POAG mild OD => new dx 06/2022 based on DH -HVF 07/2023 (NOT in contacts) OD shallow central defect, nearly normal and better than typical OS shallow inf paracentral arc, variable but non progressive -OCT: too myopic OU -Baseline photos 04/2019 -04/2019: I don't think there's glaucomatous optic neuropathy but OHTN, high myopia, FamHx (mom) andthin CCT put her at substantial risk of glaucoma -+DH OD 06/2022 @ 19mmHg => suggestive of early POAG -wears RGP's real time trader -ideal IOP 16 or less OD -IOP controlled OU and VF stable -she sees Britta in 6 months 12 months refract OU, BAT OD, HVF, dilate Cortical cataract OU -OD BCVA 20/30, glare 20/60 August 02, 2023 -she is happy with her vision Extreme myopia, myopic degeneration, lattice OU -sees Britat/Joshua -OCT macula 03/2019 (per Britta) stable schisis OU, -H/O CNVM OS post Avastin and Eylea, now quiescent since 2015 -central atrophy OS apparent on VF OS Ptosis OU -affects VS ATTESTATION: By signing my name below, I, Nayeli Rodriguez, attest that this documentation has been prepared underthe direction and in the presence of Jaleesa Soni MD. Electronically Signed:gracie Cassidyibe, August 02, 2023 10:41 AM I personally performed the services described in this documentation. All medical record entries made by the scribe were at my direction and in my presence. I have reviewed the chart and discharge instructions (if applicable) and agree that the record reflects my personal performance and is accurateand complete. I have confirmed and edited as necessary the relevant HPI, ophthalmic history, ROS, and neuro exam findings as obtained by others. I have seen and examined Hal Mari. I have discussed the case and the management of this patient's care with the Resident/Fellow, if applicable. I also have reviewed, edited as necessary, and agree with the assessment and plan as stated above and agree with all ofits relevant components. documented in this encounterSub[facility]05-[facility]24 NoteDate of Procedure 08/01/2023. Interpretation Right Eye Abnormal foveal contour. Findings include Intraretinal fluid, Epiretinal membrane, Atrophy; Negative for Subretinal fluid. Left Eye Abnormal foveal contour. Findings include Intraretinal fluid, Epiretinal membrane, Atrophy; Negative for Subretinal fluid. Interval Change Right Eye Stable. Left Eye Stable.[id number] History of Present illness Narrative* Geovani Callejas MD - 08/01/2023 1:24 PM EDT The documentation for the note below was completed in part by Kyra Obrien acting as a scribe for Geovani Callejas MD. 08/01/2023 1:24 PM. Scribe Attestation: By signing my name below, I, Kyra Hullnelly Goyal, attest that the documentation in part for the note below and the encounter was completed in part by Kyra Obrien acting as a scribe for Geovani Callejas MD. Electronically Signed: Isaiah Moralese. July 1:24 PM. All problems with bold in text below addressed at this visit with patient 1. 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 Cataracts, Both eyes - Follow in case future action is needed 3. Early POAG OD, OTHN OS - 2/2 OHTN today and +Fam history with Mother (managed on gtts only) - Diagnosed when new disc heme noted on exam OD 06/2022 - Instructed pt to continue using timolol qAM OU, latanoprost qAM OU - IOP 16/16 - Follows with Dr. Soni, kaidens aw 12/21/22 4. Lattice degeneration OU (both eyes) - RWS reviewed with pt including flashes/floaters and peripheral vision loss - Exam today stable - Follow in case future change is needed 5. 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 Mason - No changes - Follow in case future change is needed I personally performed the services described in this documentation. All medical record entries made by the scribe were at my direction and in my presence. I have reviewed the chart and discharge instructions (if applicable) and agree that the record reflects my personal performance and is accurateand complete. I have confirmed and edited as necessary the relevant ophthalmic history, ROS, and the neuro exam findings as obtained by others. I have seen and examined Hal Mari. I have discussed the case and the management of this patient's care with the Resident/Fellow, if applicable. I also have reviewed and agree with the assessment and plan as stated above and agree with all of its relevant components. documented in this encounterSub[facility]12-[facility]-2023 NotePap Smear Specimen AdequacyDecemb2022 9:55amComment.Satisfactory for evaluation. Endocervical and/or squamous metaplasticcells (endocervical component)are present.[facility] INTER[facility] A#[id number] Hospitals Geneva Medical CenterCommymichigan medical center alma on above: Satisfactory for evaluation. Endocervical and/or squamous metaplasticcells (endocervical component)are present.02-17-2023 NotePap Smear Specimen Adequacy February 17, 2023 9:55amComment.Satisfactory for evaluation. Endocervical and/or squamous metaplasticcells (endocervical component)are present.[facility] A#[id number] Hospitals Geneva Medical CenterComment on above:Satisfactory for evaluation. Endocervical and/or squamous metaplasticcells (endocervical component)are present.02-17-2023 NotePap Smear Specimen AdequacyDecember 2022 10:55amComment.Satisfactory for evaluation. Endocervical and/or squamous metaplasticcells (endocervical component)are present.[facility] A#[id number] Hospitals Geneva Medical CenterComment on above:Satisfactory for evaluation. Endocervical and/or squamous metaplasticcells (endocervical component)are present.02-17-2023 NotePap Smear Specimen AdequacyDecember 2022 10:55amComment.Satisfactory for evaluation. Endocervical and/or squamous metaplasticcells (endocervical component)are present.[facility] A#[id number] Hospitals Geneva Medical CenterCommymichigan medical center alma on above:Satisfactory for evaluation. Endocervical and/or squamous metaplasticcells (endocervical component)are present.02-17-2023 NotePap Smear Specimen AdequacyDecember 2022 10:55amComment.Satisfactory for evaluation. Endocervical and/or squamous metaplasticcells (endocervical component)are present.[facility] A#[id number] Hospitals Geneva Medical CenterComment on above:Satisfactory for evaluation. Endocervical and/or squamous metaplasticcells (endocervical component)are present.12-21-2022 History of Present illness Narrative* Jaleesa Soni MD - 12/21/2022 12:45 PM EDT Tmax: 25, 28; Pachy: 513, 518 Lasers and Surgeries: OD: - OS: - Ocular Medication Intol and Non-efficacy: - Referred by Britta Now on Timolol OU qam (04/2019 for [...] => suggestive of early POAG -wears RGP's real time trader -ideal IOP 16 or less -added latanoprost qd OU 06/2022 and IOP has remained well controlled 6 months refract OU, BAT OD, HVF, dilate Cortical cataract OU -vision is ok but will follow Extreme myopia, myopic degeneration, lattice OU -sees Britta/Joshua -OCT macula 03/2019 (per Britta) schisis OU, foveal atrophy OS -H/O CNVM OS post Avastin and Eylea, now quiescent since 2014 -central atrophy OS apparent on VF OS Ptosis OU -affects VS Scribe Attestation: By signing my name below, I, Lorenzo Hagen, attest that this documentation has been prepared under the direction and in the presence of Jaleesa Soni MD. Electronically Signed:lisa Vaughn, December 21, 2022 12:45 PM I, Jaleesa Soni MD, personally performed the services described in this documentation. All medical record entries made by the scribe were at my direction and in my presence. I have reviewed the chart and discharge instructions (if applicable) and agree that the record reflects my personal per formance and is accurate and complete. I have confirmed and edited as necessary the relevant ophthalmic history, ROS, and the neuro exam findings as obtained by others. I have seen and examined Hal Mari. I have discussed the case and the management of this patient's care with the Resident/Fellow, if applicable. I also have reviewed and agree with the assessment and plan as stated above and agree with all of its relevant components. Electronically Signed: Jaleesa Soni MD, December 21, 2022 1:15 PM documented in this encounterSub[facility]05-[facility] History of Present illness Narrative* Geovani Callejas MD - 07/19/2022 12:57 PM EDT The documentation for the note below was completed in part by Aime Montenegro acting as a scribe for Geovani Callejas MD. 07/19/2022 1:54 PM. Scribe Attestation: By signing my name below, I, Aime Montenegro, attest that the documentation inpart for the note below and the encounter was completed in part by Aime Montenegro acting as a scribe for Geovani Callejas MD. Electronically Signed: Lisa Otero. July 19, 2022 1:54 PM. All [...] - Doing well, continue to monitor I, Geovani Callejas MD, personally performed the services described in [...] by others. I have seen and examined Hal Mari. I have discussed the case and the management of this patient's care with the Resident/Fellow, if applicable. I also have reviewed and agree with the assessment and plan as stated above and agree with all of its relevant components. Electronically Signed: Geovani Callejas MD, July 19, 2022 2:11 PM documented in this encounterSub[facility]04-04-2023 History of Present illness Narrative* Jaleesa Soni MD - 06/14/2022 2:18 PM EDT Tmax: 25, 28; Pachy: 513, 518 Lasers and Surgeries: OD: - OS: - Ocular Medication Intol and Non-efficacy: - Referred by Britta Now on Timolol OU qam (04/2019 for [...] POAG -IOP not ideal OU -wears RGP's real time trader -cont timolol, add latanoprost qd OU -she will get IOP check with Britta next month and he can let me know (pt coming from Last) -ideal IOP 16 or less -can reach out to patient via MyChart Cortical cataract OU -vision is ok Extreme myopia, myopic degeneration, lattice OU -sees Britta. Has f/u in July -OCT macula 03/2019 (per Britta) schisis OU, foveal atrophy OS -H/O CNVM [...] agree that the record reflects my personal per formance and is accurate and complete. I have confirmed and edited as necessary the relevant ophthalmic history, ROS, and the neuro exam findings as obtained by others. I have seen and examined Hal Mari. I have discussed the case and the management of this patient's care with the Resident/Fellow, if applicable. I also have reviewed and agree with the assessment and plan as stated above and agree with all of its relevant components. 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 04/23/2019 06/14/2022 Last Assessment & Plan: Assessment: on rx Glaucoma suspect, bilateral 03/19/201904/13 documented as of this encounter (statuses as of 06/15/2022) [facility]04[facility] History of Past illness Narrative* Problem Noted Date Resolved Date Optic disc hemorrhage, right 06/14/202206/2022 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 04/23/2019 06/14/2022 Last Assessment & Plan: Assessment: on rx Glaucoma suspect, bilateral 03/19/201904/13 documented as of this encounter (statuses as of 07/19/2022) [facility] History of Past illness Narrative* Problem Noted Date Resolved Date Optic disc hemorrhage, right 06/14/202206/2022 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 04/23/2019 06/14/2022 Last Assessment & Plan: Assessment: on rx Glaucoma suspect, bilateral 03/19/201904/13 documented as of this encounter (statuses as of 07/20/2022) [facility] History of Past illness Narrative* Problem Noted Date Diagnosed Date Resolved Date Optic disc hemorrhage, right 06/14/2022 06/14/2022 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 Callejas in 6 months 2. Cataracts, Both eyes [...] if new symptoms develop. documented in this encounterSub[facility]09-28-2022 Miscellaneous Notes* Telephone Encounter - Jaleesa Soni MD - 12/08/2021 7:29 PM EDT IOP was measured 18,19 this past June with Britta. 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] 06, 2021 1:41 PM documented in this encounterSub[facility]04-18-2022 Miscellaneous Notes* Telephone Encounter - Natalya Mclaughlin - 06/28/2021 8:49 AM EDT Last seen May 2020; was to return for annual. Canceled and rescheduled to November 2021. documented in this encounterSub[facility]01-[facility] History of Past illness Narrative* Problem Noted Date Resolved Date Glaucoma suspect, bilateral 03/19/201904/13 documented as of this encounter (statuses as of 06/28/2021) [facility] History of Past illness Narrative* Problem Noted Date Resolved Date Glaucoma suspect, bilateral 03/19/201904/13 documented as of this encounter (statuses as of 07/06/2021) [facility] History of Past illness Narrative* Problem Noted Date Resolved Date Glaucoma suspect, bilateral 03/19/201904/13 documented as of this encounter (statuses as of 12/08/2021) [place] [address]-07-2020 History of Past illness Narrative* Problem Noted Date Resolved Date Glaucoma suspect, bilateral 03/19/2019 0203/2019 documented as of this encounter (statuses as of 12/27/2021) [facility]un[facility] foundation noteNo assessment information availableWAdena [facility] Work Phone: evaluation note* Diagnosis Presbyopia- Primary documented in this encounter [facility] note* Diagnosis Postop check- Primary Follow-up examination, following unspecified surgery documented in this encounter [facility]* Diagnosis Onset Date Resolution Status Chest pain acute Essential hypertension acute [facility] Work Phone: Evaluation note* Diagnosis 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- Primary 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, 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 Preglaucoma, unspecified documented in this encounter [facility]* Diagnosis Onset Date Resolution Status Preventative health care acu te Essential hypertension chron ic Osteopenia chronic [facility] Work Phone: Evaluation note* Diagnosis Primary open angle glaucoma (POAG) of right eye, mild stage- Primary 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, right [facility] Diagnosis Left eye affected by degenerative [...] eyes Preglaucoma, unspecified [facility] Diagnosis Onset Date Resolution Status Health care maintenance acut e Essential hypertension chron ic Insomnia chronic [facility] Work Phone: Evaluation note* Diagnosis Primary open angle glaucoma (POAG) of right eye, mild stage- Primary 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 Cortical senile cataract of both eyes [facility] Diagnosis Onset Date Resolution Status Essential hypertension chron ic Insomnia chronic Essential hypertension chron ic Encounter for routine gynecological examination noneactive [facility] Work Phone: Evaluation note* Diagnosis Onset Date Resolution Status Essential hypertension chron ic Insomnia chronic Essential hypertension chron ic Encounter for routine gynecological examination noneactive Anxiety acute Essential hypertension chron ic Insomnia chronic [facility] Work Phone: Evaluation note* Diagnosis Onset Date Resolution Status Encounter for routine gynecological examination noneactive Anxiety acute Essential hypertension chron ic Insomnia [facility] Work Phone: Evaluation note* Diagnosis Onset Date Resolution Status Encounter for routine gynecological examination noneactive Anxiety acute Essential hypertension chron ic Insomnia chronic Essential hypertension chron ic Insomnia chronic Osteopenia [facility] Work Phone: Evaluation note* Diagnosis Choroidal neovascularization of left eye- Primary 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, bilateral Lattice degeneration of peripheral retina Glaucoma suspect of left eye Preglaucoma, unspecified 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 Primary open angle glaucoma (POAG) of right eye, mild stage [facility]* Diagnosis Primary open angle glaucoma (POAG) of right eye, mild stage- Primary 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 [facility] Diagnosis Pre-operative examination- Primary Preoperative examination, unspecified Myogenic ptosis of eyelid of both eyes Myogenic ptosis Essential hypertension, benign 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, bilateral Lattice degeneration of peripheral retina Glaucoma suspect of left eye Preglaucoma, unspecified 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 Primary open angle glaucoma (POAG) of right eye, mild stage [facility] Pre-operative examination- Primary Preoperative examination, unspecified Myogenic ptosis of eyelid of both eyes Myogenic ptosis Essential hypertension, benign 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, bilateral Lattice degeneration of peripheral retina Glaucoma suspect of left eye Preglaucoma, unspecified 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 Primary open angle glaucoma (POAG) of right eye, mild stage [facility]* Diagnosis Pre-operative examination- Primary Preoperative examination, unspecified Myogenic ptosis of eyelid of both eyes Myogenic ptosis Essential hypertension, benign 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 Primary open angle glaucoma (POAG) of right eye, mild stage- Primary 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 Cortical senile cataract of both eyes documented [facility] this [facility] Author Esme Gomez [facility] Note Date/Time December 24, 2024 1 0:53am [facility] [address] [place] [address] OFFICE VISIT Date of Service: 12/24/24 MR#: [id number] Acct: [id number] Patient: HAL MARI Rep #: [id number] : 1950 Provider: GRZEGORZ Farnsworth Age/Sex: 74/F Location: [facility] [email or web address] Status: Signed Intake Vital Signs 10/23/24 12:54 12/24/24 10:32 12/24/24 10:33 Height 5 ft 5 in Weight: 136 lb 4 oz BMI 22.6 BP 122/68 H 133/78 H Blood Pressure Location Lt brachial Lt brachial Position Sitting Sitting Respiration 16 Pulse 68 Pulse Source Monitor Temp 98.3 F Temp Source Temporal Pulse Oximetry (%) 98 Oxygen Delivery Method room air Comment manual reading nurse check pt reading with BP cuff Intake Visit Reasons: 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 Chief Complaint: bp check Online Program Coordinator Required: No Is patient in pain?: No Allergies No Known Allergies Allergy (Verified 10/23/24 12:53) Have you fallen in the past year?: No Nurse's Note: blood pressure check Clinical Quality Measures Falls Risk Screening/Assistive Devices Have you fallen in the past year?: No 12/24/24 5767 <Electronically signed by Esme cardoso MD> Date _ Esme Gomez MD Cosigner Signature: Date (if applicable) CC: ~ [facility] Work Phone: Reason for referral (narrative)No reason for referral information availableWAdena [facility] Work Phone: Summary Purpose Family History No Family History Records Found Relationship Condition Age at Onset Recorded Date/T sally father Coronary artery disease Unknown Relationship Condition Age at Onset Recorded Date/T sally father Coronary artery disease Unknown Myocardial infarction Unknown mother Malignant neoplasm of pancreas Unknown Advance Directives No Advanced Directives Records FoundDocuments on File Type Date 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 No May 28, 2023 3:34pm Chief Complaint and Reason for Visit Chief Complaint COVID TEST DRIVE THR U SCREENING Chief Complaint Amb Documentation high bp/heart palps (ALYSSA) ARRYHTHMIA Reason for Visit Chest pain Essential hypertension Chief Complaint DIRECTOR STAFFING, EST CARE Amb Documentation Reason for Visit Preventative health care Essential hypertension Osteopenia Chief Complaint DIRECTOR STAFFING, EST CARE Amb Documentation POST-MENOPAUSAL, SCREENING Reason for Visit Preventative health care Essential hypertension Osteopenia Chief Complaint 6 M FU BP CHECK Reason for Visit Health care maintena nce Essential hypertension Insomnia Chief Complaint 6 M FU BP CHECK BP CHECK 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) Reason for Visit Essential hypertensi on Insomnia Essential hypertension Encounter for routine gynecological examination Chief Complaint 6 M FU BP CHECK BP CHECK 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) 3 M FU Reason for Visit Essential hypertensi on Insomnia Essential hypertension Encounter for routine gynecological examination Anxiety Essential hypertension Insomnia Chief Complaint 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) 3 M FU FINGER Reason for Visit Encounter for routin e gynecological examination Anxiety Essential hypertension Insomnia Chief Complaint 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) 3 M FU FINGER H FU-CELLULITIS SCREENING Reason for Visit Encounter for routin e gynecological examination Anxiety Essential hypertension Insomnia Essential hypertension Insomnia Osteopenia Chief Complaint Admit Date 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) February 19, 2024 8 :39am 6 m fu April 22, 2024 12:53pm SCREENING June 04, 2024 9:0 6am Reason for Visit Admit Date Encounter for routine gynecological exam ination February 19, 2024 8:39am Anxiety April 22, 2024 12:53pm Essential hypertension April 22 12:53pm Insomnia April 22, 2024 12:53pm Osteopenia April 22, 2024 12:53pm Chief Complaint Admit Date 6 M FU October 23, 2024 12 :53pm Chief Complaint Admit Date 6 M FU October 23, 2024 12 :53pm 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 December 24, 2024 10:19am EORDER December 24, 2024 1 1:12am Reason for Visit Admit Date Anxiety October 23, 2024 12 :53pm Essential hypertension October 23, 2024 12:53pm Insomnia October 23, 2024 12 :53pm Medications Administered Section Active Administered Medications - up to 3 most recent administrations Medication Order MAR Action Action Date Dose Rate Site fluorescein-benoxinate 0.25-0.4 % 1 Drop (FLURESS) 1 Drop, BOTH EYES, DIRECTED, Starting on Mon07/19/22 at 1330, Until Mon07/20/22 at 0129, Administer for applanation tonometry. In the event of a Fluress shortage, administer 1 drop of [place]-Fluor into both eyes as directed for applanation tonometry., OPHT CLINIC MED ORDERS Given 07/19/2022 1:30 PM EDT 1 Drop PHENYLephrine 2.5 % 1 Drop (AK-DILATE, PHIL-SYNEPHRINE) 1 Drop, BOTH EYES, DIRECTED, Starting on Tu07/19/22 at 1330, Until Mon07/20/22 at 0129, Administer [...] 1 Drop, BOTH EYES, DIRECTED, Starting on 12/21/22 at 1330, Until Alysia 12/22/22 at 0129, Administer for applanation tonometry. In the event of a Fluress shortage, administer Lynn-Fluor 1 drop into both eyes as directed for applanation tonometry Given 12/21/2022 1:12 PM EDT 1 Drop Additional Source Comments INFORMATION SOURCE (unrecogn ized section and content) DATE CREATED AUTHOR 06/01/2020 Armando Hernández [facility] DATE CREATED AUTHOR AUTHOR'S ORGANIZ ATION 01/07/2025 [facility] DATE CREATED AUTHOR AUTHOR'S ORGANIZ ATION 01/09/2025 [facility] Goals (unrecognized section and content) Goals may be documented in a n alternate sectionGoals may be documented in an alternate sectionGoals may be documented in an alternate sectionGoals may be documented in an alternate sectionGoals may be documented in an alternate sectionGoals may be documented in an alternate sectionGoals may be documented in an alternate sectionGoals may be documented in an alternate sectionGoals may be documented in an alternate sectionGoals may be documented in an alternate sectionGoals may be documented in an alternate sectionGoals may be documented in an alternate sectionGoals may be documented in an alternate section Source Comments (unrecognize d section and content) In the event this informatio n is protected by the Federal Confidentiality of Alcohol and Drug Abuse Patient Records regulations: The Federal rules restrict any use of the information to criminally investigate or prosecute any alcohol or drug abuse patient.[facility] the event this information is protected by the Federal Confidentiality of Alcohol and Drug Abuse Patient Records regulations: The Federal rules restrict any use of the information to criminally investigate or prosecute any alcohol or drug abuse patient.[facility] the event this information is protected by the Federal Confidentiality of Alcohol and Drug Abuse Patient Records regulations: The Federal rules restrict any use of the information to criminally investigate or prosecute any alcohol or drug abuse patient.[facility] the event this information is protected by the Federal Confidentiality of Alcohol and Drug Abuse Patient Records regulations: The Federal rules restrict any use of the information to criminally investigate or prosecute any alcohol or drug abuse patient.[facility] the event this information is protected by the Federal Confidentiality of Alcohol and Drug Abuse Patient Records regulations: The Federal rules restrict any use of the information to criminally investigate or prosecute any alcohol or drug abuse patient.[facility] the event this information is protected by the Federal Confidentiality of Alcohol and Drug Abuse Patient Records regulations: The Federal rules restrict any use of the information to criminally investigate or prosecute any alcohol or drug abuse patient.[facility] the event this information is protected by the Federal Confidentiality of Alcohol and Drug Abuse Patient Records regulations: The Federal rules restrict any use of the information to criminally investigate or prosecute any alcohol or drug abuse patient.[facility] the event this information is protected by the Federal Confidentiality of Alcohol and Drug Abuse Patient Records regulations: The Federal rules restrict any use of the information to criminally investigate or prosecute any alcohol or drug abuse patient.[facility] the event this information is protected by the Federal Confidentiality of Alcohol and Drug Abuse Patient Records regulations: The Federal rules restrict any use of the information to criminally investigate or prosecute any alcohol or drug abuse patient.[facility] the event this information is protected by the Federal Confidentiality of Alcohol and Drug Abuse Patient Records regulations: The Federal rules restrict any use of the information to criminally investigate or prosecute any alcohol or drug abuse patient.[facility] the event this information is protected by the Federal Confidentiality of Alcohol and Drug Abuse Patient Records regulations: The Federal rules restrict any use of the information to criminally investigate or prosecute any alcohol or drug abuse patient.[facility] the event this information is protected by the Federal Confidentiality of Alcohol and Drug Abuse Patient Records regulations: The Federal rules restrict any use of the information to criminally investigate or prosecute any alcohol or drug abuse patient.[facility] the event this information is protected by the Federal Confidentiality of Alcohol and Drug Abuse Patient Records regulations: The Federal rules restrict any use of the information to criminally investigate or prosecute any alcohol or drug abuse patient.[facility] the event this information is protected by the Federal Confidentiality of Alcohol and Drug Abuse Patient Records regulations: The Federal rules restrict any use of the information to criminally investigate or prosecute any alcohol or drug abuse patient.[facility] the event this information is protected by the Federal Confidentiality of Alcohol and Drug Abuse Patient Records regulations: The Federal rules restrict any use of the information to criminally investigate or prosecute any alcohol or drug abuse patient.[facility] the event this information is protected by the Federal Confidentiality of Alcohol and Drug Abuse Patient Records regulations: The Federal rules restrict any use of the information to criminally investigate or prosecute any alcohol or drug abuse patient.[facility] the event this information is protected by the Federal Confidentiality of Alcohol and Drug Abuse Patient Records regulations: The Federal rules restrict any use of the information to criminally investigate or prosecute any alcohol or drug abuse patient.[facility] Reason for Visit (unrecogniz ed section and content) Reason Comments Refill Request Timolol Maleate 0.5% Reason Comments Contact Lens Purchase Reason Comments Post-op (Ophthalmology) Both Eyes Reason Comments Refill Request Reason Comments Choroidal Neovascular Membrane Follow Up Reason Comments Glaucoma Suspect Follow Up 2 Year Follow Up Both eyes Reason Comments Lattice Degeneration Follow Up Reason Comments Primary Open Angle Glaucoma Follow Up Reason Comments Myopic degeneration Reason Onset Date Comments Refill Request 04/22/2024 Reason Onset Date Comments Refill Request 04/25/2024 Reason Comments Myopic degeneration Both eyes Lattice Degeneration Follow Up Both eyes Reason Comments Primary Open Angle Glaucoma Follow Up Blurred Vision OS Care Teams (unrecognized sec tion and content) Team Status: Active Member Role Status Dates Dr. Ab Dumont MD Family Provider Active Dr. Esme Gomez MD Primary Care Provider Active Team Status: Inactive Member Role Status Dates Dr. Ab Dumont MD Primary Care Provider, Referring Provider Active Dr. Esme Gomez MD Attending Provider Active Team Status: Active Member Role Status Dates Dr. bA Dumont MD Primary Care Provider Active [place] Attending Provider Active Team Status: Inactive Member Role Status Dates Dr. Esme Gomez MD Primary Care P rovider, Attending Provider, Referring Provider Active Team Status: Active Member Role Status Dates Dr. Ab Dumont MD Family Provider Active No Primary Care Physician Primary Care Provider Active Team Status: Inactive Member Role Status Dates Dr. Esem Gomez MD Referring Provider Active Dr. Ktahe Eric DO Attending Provider Activ e Team Status: Inactive Member Role Status Dates No Primary Care Physician Primary Care Provider Active Dr. Kathe Eric DO Attending Provider, Refe rring Provider Active Team Status: Inactive Member Role Status Dates Dr. Esme Gomez MD Attending Provider, Referrin g Provider Active No Primary Care Physician Primary Care Provider Active Team Status: Inactive Member Role Status Dates Dr. Esme Gomez MD Primary Care Provider Active Dr. Brando Myers DO Emergency Provider Active Team Status: Active Member Role Status Dates Dr. Kathe Eric DO Attending Provider, Refe rring Provider Active Dr. Esme Gomez MD Primary Care Provider Active Team Status: Inactive Member Role Status Dates Dr. Esme Gomez MD Primary Care Provider Active Dr. Brando Myers DO Attending Provider, Emergency P rovider Active Team Status: Inactive Member Role Status Dates Dr. Kathe Eric DO Attending Provider, Refe rring Provider Active Dr. Esme Gomez MD Primary Care Provider Active Team Status: Active Member Role Status Dates Dr. Esme Gomez MD Primary Care Provider Active Team Status: Inactive Member Role Status Dates Dr. Esme Gomez MD Primary Care Provider Active Start: February 19, 2024 End: February 19, 2024 Dr. Esme Gomez MD Referring Provider Active Start: February 19, 2024 End: February 19, 2024 Raina John NP, DIRECTOR STAFFING-C Attending Provider Active Start: February 19, 2024 End: February 19, 2024 Team Status: Inactive Member Role Status Dates Dr. Esme Gomez MD Primary Care Provider Active Start: April 22, 2024 End: April 22, 2024 Dr. Esme Gomez MD Attending Provider Active Start: April 22, 2024 End: April 22, 2024 Dr. Esme Gomez MD Referring Provider Active Start: April 22, 2024 End: April 22, 2024 Team Status: Inactive Member Role Status Dates Dr. Esme Gomez MD Primary Care Provider Active Start: June 04, 2024 End: June 04, 2024 Dr. Esme Gomez MD Attending Provider Active Start: June 04, 2024 End: June 04, 2024 Dr. Esme Gomez MD Referring Provider Active Start: June 04, 2024 End: June 04, 2024 Team Status: Active Member Role/Relationship Status Dates Dr. Esme Gomez MD Primary Care Provider Active Team Status: Inactive Member Role/Relationship Status Dates Dr. Esme Gomez MD Primary Care Provider Active Start: October 23, 2024 End: October 23, 2024 Dr. Esme Gomez MD Attending Provider Active Start: October 23, 2024 End: October 23, 2024 Dr. Esme Gomez MD Referring Provider Active Start: October 23, 2024 End: October 23, 2024 Team Status: Active Member Role/Relationship Status Dates Dr. Esme Gomez MD Primary care physician Activ e Team Status: Inactive Member Role/Relationship Status Dates Dr. Esme Gomez MD Primary care physician Activ e Start: October 23, 2024 End: October 23, 2024 Dr. Esme Gomez MD Attending physician Active Start: October 23, 2024 End: October 23, 2024 Dr. Esme Gomez MD Referring Provider Active Start: October 23, 2024 End: October 23, 2024 Team Status: Inactive Member Role/Relationship Status Dates Dr. Esme Gomez MD Primary care physician Activ e Start: December 24, 2024 End: December 24, 2024 Dr. Esme Gomez MD Attending physician Active Start: December 24, 2024 End: December 24, 2024 Dr. Esme Gomez MD Referring Provider Active Start: December 24, 2024 End: December 24, 2024 Team Status: Active Member Role/Relationship Status Dates Dr. Esme Gomez MD Primary care physician Activ e Start: December 24, 2024 Dr. Esme Gomez MD Attending physician Active Start: December 24, 2024 Dr. Esme Gomez MD Referring Provider Active Start: December 24, 2024 FOR RECORDS PERTAINING TO PATIENTS WHO ARE [...] BE BASED ON THE PRIMARY CLINICAL RECORDS. [facility] [place], [facility]. provides no warranty or guarantee of the accuracy or completeness of information in this document.
--- NOTE | 2025-02-01 11:29 | ED.VIS.LOWEX ---
HPI History of Present Illness Chief Complaint: Lower Extremity Injury Narrative Narrative: 74-year-old female states that she was walking down her stairs about an hour and a half prior to arrival, carrying books, her right foot hyper plantarflexed. She did not fall and was able to catch herself but now she noticed swelling mainly about the right lateral malleolus, and has extreme pain with weightbearing and walking. She denies hitting her head or loss of consciousness or other injury. She states that at baseline, she has high arches. She has pain mainly across the top of her right foot with noted swelling laterally. [facility] Medical History Insomnia Osteopenia Wears glasses Hx of essential hypertension Hx of migraines Hx of glaucoma History of asthma Hx of seasonal allergies Ptosis of both eyelids Glaucoma Anxiety Home Medications ?Medication ?Instructions ?Recorded ?Last Taken ?Type ascorbic acid (vitamin C) 500 mg mg PO 07/23/21 Unknown History capsule calcium citrate 250 mg PO BID 07/23/21 Unknown History mecobalamin (vitamin B12) 5,000 mcg PO 07/23/21 Unknown History mcg disintegrating tablet multivitamin (Multiple Vitamins 1 tab PO DAILY 07/23/21 Unknown History tablet) Bacillus coagulans 800 million cell PO 04/06/22 Unknown History cell tablet (Digestive Advantage Probiotics-Prebiotic) latanoprost 0.005 % eye drops drp ophthalmic (eye) Glaucoma 10/19/23 Unknown History magnesium 250 mg tablet 250 mg PO DAILY 10/19/23 Unknown History timolol maleate 0.5 % eye drops drp ophthalmic (eye) Glaucoma 10/19/23 Unknown History treatment propranolol 80 mg tablet 80 mg PO BID #180 tabs 05/27/24 Unknown Rx valsartan 320 1 tab PO DAILY #90 tabs 05/27/24 Unknown Rx mg-hydrochlorothiazide 25 mg tablet Allergy/AdvReac Type Severity Reaction Status Date / Time No Known Allergies Allergy Verified 02/01/25 10:18 Family History Father CAD (coronary artery disease) CABG Myocardial infarction Mother Pancreatic cancer Surgical History No significant past surgical history Social History Smoking Status: Never smoker alcohol intake: current alcohol intake frequency: holidays/special occasions only substance use type: does not use caffeine: Yes what type of physical activity do you participate in: walking frequency: 3-4 times per week seatbelt use: always do you feel safe at home: Yes additional social history: -Ty ROS ROS ED ROS Narrative Review of systems is positive for right lateral ankle pain and swelling, pain across right ankle and top of right foot. Worse with weightbearing and walking. Relieved by nothing. EXAM Physical Exam Narrative Exam Narrative: GCS 15. ABCs intact. Focused examination of the right ankle shows diffuse swelling throughout the right lateral malleolus. Palpable dorsalis pedis pulse. Plantarflexion and dorsiflexion of right foot intact. No pain. No crepitance. Palpable dorsalis pedis pulse. EHL intact. No palpable Achilles tendon deficit. No proximal fibular head tenderness. Const Vital Signs: 02/01/25 10:19 Temperature 97.1 F L Temperature Source Temporal Pulse Rate 56 L Respiratory Rate 14 Blood Pressure 168/69 H Blood Pressure Mean 102 Pulse Ox 98 Oxygen Delivery Method Room Air MDM MDM MDM Narrative Medical decision making narrative: Differential diagnosis includes but not limited to right ankle fracture versus sprain of various ligaments versus foot fracture versus sprain as well. Patient will be given Tylenol. X-rays were obtained of the right ankle and right foot and interpreted by myself independently. On the right ankle x-ray there is a nondisplaced lateral malleolus fracture. No evidence of foot fracture. At this point in time, patient is unsure whether or not she would want to follow-up with orthopedics or podiatry. She will be placed in a sugar-tong splint and given a walker and told to ice and elevate and take [id number] medications. I did offer her stronger analgesics such as narcotic pain medication but she declined. See procedure note for details. Patient examined afterwards and remains neurovascular intact distally after stirrup splint application with 4 inch Ortho-Glass. I did order a walker initially but she states that she has a scooter that she is borrowing from a friend and does not want a walker. She was told to be nonweightbearing. She and her could not decide whether or not they wanted to follow-up with podiatry versus orthopedics so they were referred to both on-call. He would like to discuss this with his son who is a physician. I feel she can be discharged safely home with follow-up. I stressed the importance of follow-up within the next week and to be nonweightbearing on her right lower extremity. Return instructions to the emergency department were reviewed. Disposition is discharged home in stable condition. History & Record Review Discussion w/independent historian: Patient and Family () Radiography Diagnostic Testing: Clinical Impression(s) from Imaging Studies Ankle X-Ray 02/01/25 10:30 IMPRESSION: Acute lateral malleolus fracture. Reading Location: [id number] Foot X-Ray 02/01/25 10:30 IMPRESSION: Acute lateral malleolus fracture. Reading Location: [facility] Procedures Lower Extremity Splints Lower Extremity Splint: Orthoglass and Stirrup Splint Fabrication: Fabricated Location: Right Discharge Plan Triage Chief Complaint: Lower Extremity Injury ED Provider: Harrison Montes Dx/Rx/DC Orders Clinical Impression: Closed right ankle fracture, Closed fracture of distal end of fibula Instructions: ED Ankle Fracture Prescriptions: No Action multivitamin [Multiple Vitamins] Tablet 1 tab PO DAILY calcium citrate 250 mg calcium tablet 250 mg PO BID mecobalamin (vitamin B12) 5,000 mcg tablet,disintegrating PO ascorbic acid (vitamin C) 500 mg capsule PO Digestive Advantage Probio-Pre 800 million cell tablet PO magnesium 250 mg tablet 250 mg PO DAILY timolol maleate 0.5 % drops ophthalmic (eye) latanoprost 0.005 % drops ophthalmic (eye) valsartan-hydrochlorothiazide 320-25 mg tablet 1 tab PO DAILY Qty: 90 3RF propranolol 80 mg tablet 80 mg PO BID Qty: 180 3RF Primary Care Provider: Esme Gomez Referrals: Esme Gomez MD [Primary Care Provider, Internal Medicine] Venancio De León DPM [Med Staff - Active Staff, Podiatry] - 3-5 Days Ramirez Aponte MD [Med Staff - Active Staff, Orthopedics] - 3-5 Days Activity Restrictions/Additional Instructions: Do not get splint wet. Continue Tylenol and/or ibuprofen [id number] as needed for pain. Elevate your right foot when possible. Follow-up with either orthopedics or podiatry within the next week. Nonweightbearing on right foot. Use your scooter. Print Language: Kiswahili Disposition Disposition: Home, Self Care
[2025-02-01 12:18] VITALS: BP 164/62; PULSE 57; RESP 16; O2SAT 98
[2025-02-01 13:07] VITALS: BP 158/60; PULSE 60; RESP 16; TEMP 36.2; O2SAT 98
== END 2025-02-01 13:08 | disposition home or self-care (01) ==
PROVIDERS: Emergency Provider Emergency Medicine; PCP Internal Medicine; Visit Provider Emergency Medicine
DX: S82.831A Other fracture of upper and lower end of right fibula, initial encounter for closed fracture (principal); I10 Essential (primary) hypertension; S82.64XA Nondisplaced fracture of lateral malleolus of right fibula, initial encounter for closed fracture; X58.XXXA Exposure to other specified factors, initial encounter; Z79.899 Other long term (current) drug therapy; Y93.89 Activity, other specified
CPT/HCPCS: 29515; 73610; 73630; 99282